=== PATIENT | female | born 1995 | race Caucasian/White ===

== ENCOUNTER 2017-12-28 16:07 | Emergency (ER) | payer OTHER, SELFPAY ==
[2017-12-28 16:09] VITALS: BP 100/67; PULSE 134; RESP 16; TEMP 37.1; O2SAT 97; BMI 38.6
--- NOTE | 2017-12-28 16:31 | ED.VISSUMM ---
- ER Visit Summary Date of Service: 12/28/17 Chief Complaint: Sore throat, cough History of Present Illness: The patient is a 22 F patient has sore throat and cough. It started a week ago. Is worse with swallowing. Cough is been productive of a hunt sputum. Patient had a negative strep and negative mono at an urgent care today but was sent in because she was having some abdominal pain. Patient has been doing ibuprofen at home. No fevers. Physical Examination: Vital signs reviewed. HEENT exam reveals posterior oropharyngeal erythema with tonsillar exudates and swelling. Heart is regular rate and rhythm. Lungs are clear. Abdomen soft with very mild diffuse tenderness. No point tenderness. Neurologic exam normal. Test Results: [] Emergency Department Course and Treatment: Even though the patient had a negative strep test I will treat her with penicillin at home. Her abdominal pain is very benign I do not feel that any intra-abdominal pathology is present. She will follow-up with her PCP Treatment Plan: [] Disposition: Discharge Impression: Pharyngitis This note was generated with [employer] dictation software. It may contain incorrect words, spelling, and punctuation that were not noted in review of the chart prior to signing ED Disposition - Plan for ED Patient: Chief Complaint: Sore Throat Referrals: Khris De Leon MD [Primary Care Provider] -
--- NOTE | 2017-12-28 16:33 | ED.DEP ---
ED Disposition - Plan for ED Patient: Disposition: Home or Assisted Living Chief Complaint: Sore Throat Instructions: ED Strep Pharyngitis Conf Prescriptions: Penicillin V Potassium 500 mg PO BID #20 tab Referrals: Khris De Leon MD [Primary Care Provider] -
[2017-12-28] MEDS: Penicillin Vk 250 MG Tablet 500 MG PO (16:45)
== END 2017-12-28 16:53 | disposition home or self-care (01) ==
LOC: ED 16:49
PROVIDERS: Emergency Provider Emergency Medicine; Family Provider Family Medicine; PCP Family Medicine
DX: J02.9 Acute pharyngitis, unspecified (principal); R05 Cough; R10.9 Unspecified abdominal pain; F32.9 Major depressive disorder, single episode, unspecified; Z79.899 Other long term (current) drug therapy
CPT/HCPCS: 99283

== ENCOUNTER → 2018-02-12 15:39 | Outpatient (CLI) | payer OTHER, SELFPAY ==
--- NOTE | 2018-02-12 | TONS_PTH ---
PATIENT: ALIZA BRASWELL LOC: [facility] U#:[id number] AGE/SX: 30/F ROOM: RE02/12/[address]: Dr. Jimi Garber MD : 1995 BED: DIS: SPEC #: [id number] RECD: 02/12/18 15:22 STATUS: VANCE REKaro #: [id number] KANDI: 02/12/18 00:[address]: Jimi Garber DEPT: SURGICAL PATHOLOGY RECD BY: Juan Manuel Lester ENTERED: 02/13/18 13:22 SP TYPE: TONSILS OTHR DR: MD Enrique Baron MD [facility] Tissues: Tonsil, NOS Procedures: Surgery Specimen Level III HEADER OPERATION: Tonsillectomy PRE-OP DIAGNOSIS: Chronic tonsillitis, otalgia, bilateral TISSUE SUBMITTED: Tonsils, right pinned MICROSCOPIC DIAGNOSIS Bilateral tonsils: Reactive lymphoid hyperplasia, consistent with chronic tonsillitis. Focal actinomyces colonization. KEREN:faisal 02/14/18 MICROSCOPIC DESCRIPTION Slides are reviewed. GROSS DESCRIPTION Received is one container labeled with the patient's name and designated tonsils - pin on right are two tonsils that in aggregate weigh 15.2 gm. The right tonsil has a pin on it and measures 3.5 x 3 x 2.5 cm. The left tonsil measures 3 x 2 x 2 cm. Both tonsils are similar in appearance. The external surfaces are pink-hunt, smooth, glistening and somewhat lobulated. Focally they are hemorrhagic, granular and bear cautery artifact. Serial cross sections through the tonsils reveal normal tonsillar architecture. Sections are submitted in two cassettes as follows: 1 - right tonsil, 2 - left tonsil. / KEREN:faisal 02/13/18 TC:3 CPT: 19037 x2
== END ==
PROVIDERS: Family Provider Family Medicine; PCP Family Medicine; Referring Provider Otolaryngology Otolaryngology/Facial Plastic Surgery; Visit Provider Otolaryngology Otolaryngology/Facial Plastic Surgery
DX: J35.01 Chronic tonsillitis (principal); H92.03 Otalgia, bilateral
CPT/HCPCS: 88304

== ENCOUNTER → 2018-09-11 14:24 | Outpatient (CLI) | payer OTHER, SELFPAY ==
--- NOTE | 2018-09-11 15:34 | NEURO ---
NCS and/or EMG Patient Report Ordering Doctor: Stanford Baker DATE OF SERVICE: 09/11/18 Bell Cline is a 23 year old female who presents for electrodiagnostic testing of the upper limbs. She has pain in the wrists and numbness in the fourth and fifth digits of both hands. She also complains of recent shoulder pain. She has a history of left carpal tunnel repair in 2015 and right carpal tunnel repair in 2017. Electrodiagnostic findings median motor nerve demonstrates normal distal latency, amplitude and conduction velocity bilaterally. Ulnar motor response is within normal limits bilaterally, including conduction across the elbow. Normal median and ulnar F-wave bilaterally. Sensory responses are within normal limits. On needle EMG, all muscles tested in the upper limbs showed no evidence of denervation with normal motor unit action potentials. Electrodiagnostic impression: This is a normal electrodiagnostic study of the upper limbs. There is no electrodiagnostic evidence for ulnar neuropathy, including cubital tunnel syndrome. There is no evidence for recurrent carpal tunnel syndrome. There is additionally no evidence for cervical radiculopathy or brachial plexopathy. If there are any further questions, please do not hesitate to contact me.
== END ==
LOC: PSN 14:25
PROVIDERS: Family Provider Family Medicine; PCP Family Medicine; Referring Provider Orthopaedic Surgery; Visit Provider Orthopaedic Surgery
DX: G56.23 Lesion of ulnar nerve, bilateral upper limbs (principal)
CPT/HCPCS: 95886; 95913

== ENCOUNTER 2018-10-15 08:46 | Outpatient (RCR) | payer OTHER, SELFPAY ==
--- NOTE | 2018-10-15 10:46 | HP.OTEVAL_ITS ---
Patient's Visit Information BELL BRASWELL is a 23 year old F, referred to Occupational Therapy by Stanford Baker MD, with a diagnosis of bilateral hand pain. Date of Evaluation: 10/15/18 Occupational Therapist: Bell Jaime, JUAN CARLOS/Debora, CHT - Subjective Subjective: This 23 year old female was seen for OT eval with dx of bilateral hand pain. 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 - ADLs Fasteners: Snaps Kitchen: Chop with knife, Peel fruits & vegetables, Open jars, Open bottle caps Household: Sweep/mop Miscellaneous: Use cell phone - Pain bilateral hands 4 - ROM ROM Comments: pt demo all ROM WNL - Strength Powerhouse Mechanic Supervisor: right 55# left 70# Lateral Pinch: right 14# left 20# Tripod Pinch: right 12# left 20# Strength Comments: pt demo with a decrease in right recreation assistant strength. pt right handed - Quick DASH-Disab of Arm,Shoulder& Hand Quick DASH Score: 28.3325 - Carpal Tunnel Syndrome Total Score of Symptom & Functional Sections: 31 - Goals Goal:: pt will demo a increase in right recreation assistant strength by 20# to increase ind with ADLs and IADLS by d/c. Goal:: pt will report pain no greater than 2/10 with use of bilateral hands for 8 hour work day by d/c Goal:: pt will demo understanding of work,computer, phone ergo by end of 1st session - Rehabilitation General Assessment: Pt demo with ROM WNL and strength good- noted a decrease in right recreation assistant and pinch strength, pt also in need of ed.on work ergo, computer and phone ergro. pt would benefit from skilled OT services 2-3 visits. Today pt ed. pt on TOS, median nerve glide as well as computer, phone and work ergonomics. Pt also given information on home trigger point release reagan for bilateral forearms and hands. pt was given handout and demo understanding of HEP. Pt to call/schedule with questions or no decrease in symptoms. Rehabilitation Potential: Good - Anticipated Interventions Anticipated Interventions: Triggerpoint Release, Joint Protection/Energy Conservation, Ergonomic Education, Education re assistive Equipment, Education re Diagnosis, Home Program - Visit Plan TEXT: Thank you for the opportunity to evaluate your patient. For Medicare and Medicare HMO plans, please review the plan of care and approve it. It will need to be FAXED BACK to us at [phone] for Medicare purposes. Please let me know if there are questions or concerns regarding this plan of care. Physician Signature: Date:
--- NOTE | 2019-03-12 18:51 | HP.OTDCSUM ---
HP - OT D/C Summary It has been my pleasure to treat BELL BRASWELL under orders from Stanford Baker MD, for the diagnosis of bilateral hand pain for a total of 1 visit(s). Please see the following information for a summary of their discharge status. 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 Goal:: pt will report pain no greater than 2/10 with use of bilateral hands for 8 hour work day by d/c Goal:: pt will demo understanding of work,computer, phone ergo by end of 1st session - D/C Information Discharge Comments: pt did not schedule further apts. Due to time lapse in services therapy d/c pt. n If there are questions or concerns regarding this patient's occupational therapy, please fell free to call me at [phone]. Thank you for the referral of this patient. Sincerely, Bell Jaime, OTR/L, CHT
== END 2018-10-15 19:00 | disposition home or self-care (01) ==
LOC: OT 08:46
PROVIDERS: Family Provider Family Medicine; PCP Family Medicine; Referring Provider Orthopaedic Surgery; Visit Provider Orthopaedic Surgery
DX: M79.641 Pain in right hand (principal); M79.642 Pain in left hand
CPT/HCPCS: 97166

== ENCOUNTER → 2020-08-03 09:54 | Outpatient (CLI) | payer OTHER, SELFPAY ==
--- NOTE | 2020-08-03 10:09 | RAD_ITS ---
STUDY: X-RAY - CERVICAL SPINE REASON FOR EXAM: Female, 25 years old. MIGRAINES TECHNIQUE: 7 view(s) of the cervical spine were obtained. COMPARISON: None FINDINGS: Normal anterior atlantoaxial articulation. Normal odontoid process. Normal cervical lordosis. Normal vertebral bodies and endplates. Normal disc space heights. Normal visualized intervertebral neuroforamina. No instability on flexion or extension views The soft tissue structures are unremarkable. RAD/Cerv Spine Obl/Flex/Ext Comp IMPRESSION: Normal x-ray examination of the visualized cervical spine. Electronically Signed: Marvin Allen MD at 10:49 EDT , Service support ,
[2020-08-03 12:22] LABS: Erythrocyte Sedimentation Rate 21 mm/hr (0-30)
[2020-08-03 12:38] LABS: Vitamin B12 243 pg/mL (211-911); Vitamin D,25 Hydroxy 9.8 ng/mL
[2020-08-03 12:55] LABS: Anion Gap 9 (5-15); BUN 11 mg/dL (7-18); BUN/Creat Ratio 14.5 RATIO (10-20); Calcium,Total 8.4 mg/dL (8.5-10.1); Chloride 109 mmol/L (98-107); Cholesterol 235 mg/dL (200); Creatinine, Serum 0.76 mg/dL (0.55-1.02); EST Glomerular Filtration Rate 99 mL/min (>60); Est Glom Filt Rate - Afr Amer 119 mL/min (>60); Free T3 2.4 pg/mL (2.18-3.98); Glucose 87 mg/dL (74-106); High Density Lipoprotein 84 mg/dL; Iron 39 ug/dL (50-170); Potassium 4.2 mmol/L (3.5-5.1); Sodium Level 138 mmol/L (136-145); T4 Free Direct 0.91 ng/dL (0.76-1.46); Thyroid Stim Hormone (TSH) 2.07 uIU/mL (0.358-3.74); Triglycerides 96 mg/dL; Very Low Density Lipoprotein 19 mg/dL (5-40)
== END ==
PROVIDERS: PCP Family Medicine; Referring Provider Family Medicine; Visit Provider Family Medicine
DX: E03.9 Hypothyroidism, unspecified (principal); R53.83 Other fatigue; R51.9 Headache, unspecified; Z13.220 Encounter for screening for lipoid disorders; Z13.1 Encounter for screening for diabetes mellitus
CPT/HCPCS: 36415; 72052; 80048; 80061; 82306; 82607; 83540; 84439; 84443; 84481; 85652

== ENCOUNTER → 2020-12-15 11:50 | Outpatient (CLI) | payer SELFPAY ==
[2020-12-15 14:51] LABS: Absolute Lymphocyte Count 2.83 X10^3/uL (0.83-4.51); Basophil# 0.04 X10^3/uL; Basophil% 0.4 % (0-1); Eosinophil# 0.08 X10^3/uL; Eosinophils% 0.7 % (0-5); Hematocrit 39.9 % (37-47); Hemoglobin 12.8 g/dL (12.0-15.0); Lymphocyte # 2.83 X10^3/ul (0.83-4.51); Lymphocyte % 26.3 % (19-41); Mean Corp Hgb Conc 32.1 g/dL (32-36); Mean Corpuscular Hgb 28.5 pg (27.0-32.0); Mean Corpuscular Volume 88.9 fL (81-99); Mean Platelet Vol. 10.9 fl (6.2-12.0); Monocyte# 0.73 X10^3/uL; Monocyte% 6.8 % (0-10); NRBC Flagged by Analyzer 0 % (0-5); Neutrophil # 7.04 X10^3/uL (2.7-7.7); Neutrophil % 65.4 % (47-70); Platelet Count 368 K/mm3 (150-450); RBC Distribution Width CV 13.1 % (11.6-14.6); RBC Distribution Width SD 42.9 fl (35.1-43.9); Red Blood Count 4.49 M/mm3 (4.2-5.4); White Blood Count 10.8 K/mm3 (4.4-11.0)
[2020-12-15 15:15] LABS: T4 Free Direct 0.88 ng/dL (0.76-1.46); Thyroid Stim Hormone (TSH) 1.52 uIU/mL (0.358-3.74)
[2020-12-15 15:28] LABS: Hemoglobin A1c 5.3 % (3.8-5.6)
== END ==
PROVIDERS: PCP Family Medicine; Referring Provider Family Medicine; Visit Provider Family Medicine
DX: E03.9 Hypothyroidism, unspecified (principal); E28.2 Polycystic ovarian syndrome; D72.829 Elevated white blood cell count, unspecified
CPT/HCPCS: 36415; 83036; 84439; 84443; 85025

== ENCOUNTER 2021-04-28 11:21 | Outpatient (CLI) | payer OTHER, SELFPAY ==
[2021-04-28] MEDS: 0.9% Saline Lock 10 ML Syringe IV (13:13)
[2021-04-28 13:14] VITALS: BP 132/80; PULSE 98; RESP 16; TEMP 36.6; O2SAT 98; BMI 42.4
[2021-04-28 13:36] VITALS: BP 119/71; PULSE 81; RESP 16; TEMP 36.9; O2SAT 100
[2021-04-28 14:29] VITALS: BP 115/75; PULSE 67; RESP 16; TEMP 37.2; O2SAT 97
== END 2021-04-28 23:59 | disposition home or self-care (01) ==
LOC: MS3OUT 11:22 → MS3 12:57
PROVIDERS: PCP Family Medicine; Referring Provider Nurse Practitioner Adult Health; Visit Provider Nurse Practitioner Adult Health
DX: Z23 Encounter for immunization (principal); Z68.41 Body mass index [BMI] 40.0-44.9, adult; U07.1 COVID-19; E66.9 Obesity, unspecified
CPT/HCPCS: J7050; M0243; A4216; Q0244

== ENCOUNTER 2021-05-04 14:46 | Outpatient (CLI) | payer OTHER, SELFPAY ==
--- NOTE | 2021-05-04 14:55 | RAD_ITS ---
STUDY: X-RAY - RIGHT ELBOW REASON FOR EXAM: Female, 26 years old. ELBOW PAIN TECHNIQUE: 4 view(s) of the elbow. COMPARISON: None. FINDINGS: Normal visualized humerus, radius and ulna. Normal radiocapitellar and ulnotrochlear articulations. The soft tissue structures are unremarkable. RAD/Elbow min 3 Views IMPRESSION: Normal x-ray examination of the elbow. Electronically Signed: Sebastien Clarke MD at 15:41 EST , Service support ,
== END 2021-05-04 23:59 | disposition short-term general hospital (02) ==
LOC: MTRAD 14:50
PROVIDERS: PCP Family Medicine; Referring Provider Family Medicine; Visit Provider Family Medicine
DX: M25.521 Pain in right elbow (principal)
CPT/HCPCS: 73080

== ENCOUNTER 2021-05-19 10:30 | Outpatient (CLI) | payer OTHER, SELFPAY ==
--- NOTE | 2021-05-19 10:30 | MRI_ITS ---
STUDY: MRI RIGHT ELBOW REASON FOR EXAM: Ulnar sided right elbow pain, decreased structural fitter strength. TECHNIQUE: Standardized fat and water weighted pulse sequences were obtained in all 3 orthogonal planes. COMPARISON: Radiographs 05/04/2021. FINDINGS: Normal radio-capitellum articulation. Normal radial collateral ligamentous complex. Normal common extensor tendon. Normal ulnotrochlear articulation. Normal ulnar collateral ligamentous complex. There is mild tendinosis of the common flexor tendon (inversion recovery coronal image 15; T2 axial image 16) without focal discontinuity of the tendon. The cubital tunnel is normal, with a normal ulnar nerve. Normal biceps tendon and distal insertion. Normal lacertus fibrosis. Normal brachialis musculotendinous insertion. Normal triceps tendon and teno-osseous insertion. Normal olecranon process. The visualized distal humerus, proximal radius, and ulna are normal. The visualized muscles of the distal arm and proximal forearm are normal. The soft tissue structures are unremarkable. MRI/Upper Ext Joint Only(Routine) IMPRESSION: Mild medial epicondylitis with mild tendinosis of the common flexor tendon. Electronically Signed: Fran Ceja MD at 12:14 EST ,
== END 2021-05-19 23:59 | disposition short-term general hospital (02) ==
LOC: MRI 10:30
PROVIDERS: PCP Family Medicine; Visit Provider Family Medicine
DX: M25.521 Pain in right elbow (principal)
CPT/HCPCS: 73221

== ENCOUNTER 2021-06-20 10:58 | Outpatient (CLI) | payer OTHER, SELFPAY ==
[2021-06-20 12:54] LABS: Vitamin B12 592 pg/mL (211-911); Vitamin D,25 Hydroxy 49.1 ng/mL
[2021-06-20 13:03] LABS: Thyroid Stim Hormone (TSH) 1.71 uIU/mL (0.358-3.74)
== END 2021-06-20 23:59 | disposition home or self-care (01) ==
LOC: MFPLAB 10:59
PROVIDERS: PCP Family Medicine; Referring Provider Family Medicine; Visit Provider Family Medicine
DX: E03.9 Hypothyroidism, unspecified (principal); E53.8 Deficiency of other specified B group vitamins; R79.89 Other specified abnormal findings of blood chemistry
CPT/HCPCS: 36415; 82306; 82607; 84443

== ENCOUNTER 2021-07-12 09:00 | Outpatient (RCR) | payer OTHER, SELFPAY ==
--- NOTE | 2021-06-22 14:33 | HP.PTEVAL_ITS ---
Patient's Visit Information ALIZA BRASWELL is a 26 year old F referred to Physical Therapy by Dr. Khris De Leon MD with a diagnosis of RIGHT MEDIAL EPICONDLITIS. Date of Evaluation: 06/22/21 Physical Therapist: Henri Lee PT, Cert MDT, OCS - Visit Plan Frequency: 1x/Week Duration: 4 Weeks Plan: PT INTERVETIONS RADIAL PULSE WAVE THERAPY ,US,ECCCTRICS ,MODIFICATIONS AND STRETCHING - Subjective This 26 y/o female presents to physical therapy with medial epicondylitis right side. Patient has right elbow pain ~ 6months although patient has had wrist pain for ~ [address] did MRI elbow tendonitis ,x-rays -, had cortisone injection helped for ~ 2weeks . Aggravating factors gripping ,repetitive motion ,lifting with right wrist . Alleviating factors ice /heat . Ibuprofrin . Denies paresthesia/tingling occasionally. Sleeping with arm bent. Patient condition affects QOL and function and job demands. Patient has had CTS bilateral hands. VOCATION: [employer]. SOCIAL: - Pain Left Elbow Pain Intensity (Out of 10): 4 Pain Intensity Range: 10 - Objective POSTURE: WFL. NEURO: denies paranesthesia/tingling. PALPATION: tender medial condyle of insertion flexor tendon and. AROM WRIST: flexion/extension 90 degrees ,supination/pronation 90 degrees, elbow 0-140 degrees. MMT: BICEPS /TRICEPS 4/5, wrist flexion/extension 4/5, supination/pronation 4/5. 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: 35# RIGHT ,70# LEFT - Special Tests R Elbow Flexion/Elbow Exension Test Supine - Elbow Fracture: Negative R Elbow Valgus Stress Test - MCL Instability: Negative R Elbow Varus Stress Stest - MCL Instability: Negative R Elbow Lat Epiconylitis - as named: Positive - Balance/Special Test Scores Quick DASH Score: 63.6350 - Goals Goal 1:: Provide HEP for managing elbow pain eccrentics Goal Time Frame: 4-6 Weeks Goal 2:: Patient to demonstrate 60% improvement of with decrease pain to improve function Goal Time Frame: 4-6 Weeks Goal 3:: Patient to improve ability to lift and grasp with right hand 80% of the time. Goal Time Frame: 4-6 Weeks Goal 4:: Patient increase strength of electrical mechanic to 50 # -60# right side to pharmacy picking technician objects Goal Time Frame: 4-6 Weeks Goal 5:: Patient to improve - Rehabilitation Potential Rehabilitation Potential: Good - Anticipated Interventions Patient/Client Instruction: Educate patient on: Condition, Plan of Care For the Purpose of:: To decrease pain, To decrease swelling/inflammation, To increase ROM, To improve nutrient delivery to tissue, To increase oxygenation perfusion, To improve muscle performance and motor function, To increase tolerance to activity/condition/position, To improve ability of physical actions for home/community/work/leisure, To improve health of tissue, To decrease soft tissue restriction, To increase flexibility/ROM, To prevent re-injury Therapeutic Exercise to Include: Strength training, Passive ROM, Active ROM Comment: ECCENTRICS For the Purpose of:: To decrease pain, To increase ROM, To improve muscle performance and motor function, To improve ability to perform ADL's, To increase tolerance to activity/condition/position, To improve ability of physical actions for home/community/work/leisure, To improve health of tissue, To decrease soft tissue restriction, To increase flexibility/ROM, To prevent re-injury Cryotherapy (ice pack, ice massage): Yes Ultrasound (thermal/non thermal): Yes Comment: RADIAL PULSED WAVE THERAPY For the Purpose of:: To decrease pain, To increase ROM, To improve nutrient delivery to tissue, To increase oxygenation perfusion, To improve ability of physical actions for home/community/work/leisure, To improve health of tissue, To decrease soft tissue restriction, To increase flexibility/ROM, To reduce risk of recurrence Thank you for the opportunity to evaluate your patient. For Medicare and Medicare HMO plans, please review the plan of care and approve it. It will need to be FAXED BACK to us at [phone] for Medicare purposes. For Medicare only, by signing this I certify the plan of care. Please let me know if there are questions or concerns regarding this plan of care. Physician Signature: Date:
--- NOTE | 2021-12-28 13:15 | HP.PTDCNRP_ITS ---
ALIZA BRASWELL was seen in my office for initial evaluation on 06/22/21. The following Plan of Care was established for this patient: Initial Frequency: 1x/Week Initial Duration: 4 Weeks Patient/Client Instruction: Educate patient on: Condition, Plan of Care For the Purpose of:: To decrease pain, To decrease swelling/inflammation, To increase ROM, To improve nutrient delivery to tissue, To increase oxygenation perfusion, To improve muscle performance and motor function, To increase tolerance to activity/condition/position, To improve ability of physical actions for home/community/work/leisure, To improve health of tissue, To decrease soft tissue restriction, To increase flexibility/ROM, To prevent re-injury Therapeutic Exercise to Include: Strength training, Passive ROM, Active ROM For the Purpose of:: To decrease pain, To increase ROM, To improve muscle performance and motor function, To improve ability to perform ADL's, To increase tolerance to activity/condition/position, To improve ability of physical actions for home/community/work/leisure, To improve health of tissue, To decrease soft tissue restriction, To increase flexibility/ROM, To prevent re-injury Cryotherapy (ice pack, ice massage): Yes Ultrasound (thermal/non thermal): Yes Comment: RADIAL PULSED WAVE THERAPY For the Purpose of:: To decrease pain, To increase ROM, To improve nutrient delivery to tissue, To increase oxygenation perfusion, To improve ability of physical actions for home/community/work/leisure, To improve health of tissue, T o decrease soft tissue restriction, To increase flexibility/ROM, To reduce risk of recurrence This patient was last seen in our office . Pertinent comments regarding their Physical therapy will appear below: Patient seen for PT for right medial epicondyle tendonitis for HEP patient decline radial pulse therapy At this point I will be discontinuing this patient from physical therapy. I would be happy to see this patient again in the future if found appropriate by the physician. Thank you! Henri Lee, PT, Cert MDT, OCS Balance/Gait/Functional tests - Balance/Special Test Scores Quick DASH Score: 63.6301
== END 2021-07-12 19:00 | disposition home or self-care (01) ==
LOC: PT 09:00
PROVIDERS: PCP Family Medicine; Referring Provider Family Medicine; Visit Provider Family Medicine
DX: M77.01 Medial epicondylitis, right elbow (principal)
CPT/HCPCS: 97035; 97110; 97140; 97162

== ENCOUNTER → 2021-11-21 | Outpatient (CLI) | payer OTHER, SELFPAY | END | disposition home or self-care (01) | LOC: LABSPEC 13:45 | PROVIDERS: PCP Family Medicine; Referring Provider Nurse Practitioner Women's Health; Visit Provider Nurse Practitioner Women's Health | DX: Z12.4 Encounter for screening for malignant neoplasm of cervix (principal) | CPT/HCPCS: 88175; G0145 ==

== ENCOUNTER → 2021-12-06 | Outpatient (CLI) | payer OTHER, SELFPAY ==
--- NOTE | 2021-12-06 12:43 | RAD_ITS ---
INDICATION: unspecified asthma EXAMINATION/TECHNIQUE: X-RAY - XR Chest 2 Views COMPARISON: 03/12/2012. FINDINGS: LINES/DEVICES: None. LUNGS: Peribronchial cuffing that could correlate with history of asthma or airway disease. No consolidation, edema or effusion. No pneumothorax. MEDIASTINUM AND CARDIOVASCULAR STRUCTURES: Cardiac silhouette not enlarged. Central airways and mediastinal contour are unremarkable. BONES AND SOFT TISSUES: Unremarkable. RAD/Chest PA and Lateral IMPRESSION: No radiographic evidence of acute cardiopulmonary disease. Electronically Signed: Shamir Cabello MD at 13:03 EDT ,
== END | disposition home or self-care (01) ==
LOC: MTRAD 12:41
PROVIDERS: PCP Family Medicine; Referring Provider Family Medicine; Visit Provider Family Medicine
DX: J45.909 Unspecified asthma, uncomplicated (principal)
CPT/HCPCS: 71046

== ENCOUNTER → 2022-08-09 | Outpatient (CLI) | payer OTHER, SELFPAY ==
--- NOTE | 2022-08-09 08:30 | RAD_ITS ---
STUDY: X-RAY - ESOPHAGUS (BARIUM SWALLOW) WITH FLUOROSCOPY REASON FOR EXAM: Female, 27 years old. DYSPEPSIA TECHNIQUE: 18 view(s) of the esophagus were obtained following swallowing of barium. FLUOROSCOPY TIME (if supplied): (29 seconds) minutes/seconds. 58.42 mGy COMPARISON: None. FINDINGS: There is no demonstrated esophageal foreign body. There is no demonstrated stricture or mucosal abnormality. Normal gastroesophageal junction, without a demonstrated hiatal hernia. The patient ingested a 12 mm tablet of barium without any difficulty. Normal visualized aortic arch and descending thoracic aorta. Normal visualized pulmonary parenchyma. Normal visualized osseous structures of the thorax. RAD/Esophagus Dual Contrast IMPRESSION: Normal plain film x-ray examination (barium swallow) of the esophagus. Electronically Signed: Sebastien Clarke MD at 10:02 EDT ,
== END | disposition home or self-care (01) ==
LOC: RAD 08:24
PROVIDERS: PCP Family Medicine; Referring Provider Family Medicine; Visit Provider Family Medicine
DX: R10.13 Epigastric pain (principal)
CPT/HCPCS: 74221

== ENCOUNTER → 2022-08-10 | Outpatient (CLI) | payer OTHER, SELFPAY ==
[2022-08-10 15:42] LABS: ALB/GLOB Ratio 1.1 RATIO (0.9-2.4); AST(SGOT) 22 U/L (15-37); Absolute Lymphocyte Count 2.07 X10^3/uL (0.83-4.51); Alanine Aminotransfer ALT/SGPT 31 U/L (13-56); Albumin, Serum 3.7 g/dL (3.2-5.0); Alkaline Phosphatase 70 U/L (45-117); Anion Gap 5 (5-15); BUN 8 mg/dL (7-18); BUN/Creat Ratio 9.9 RATIO (10-20); Basophil# 0.05 X10^3/uL; Basophil% 0.4 % (0-1); Chloride 108 mmol/L (98-107); Creatinine, Serum 0.81 mg/dL (0.55-1.02); EST Glomerular Filtration Rate 90 mL/min (>60); Eosinophil# 0.05 X10^3/uL; Eosinophils% 0.4 % (0-5); Est Glom Filt Rate - Afr Amer 109 mL/min (>60); Globulin 3.4 g/dL (2.2-4.2); Glucose 94 mg/dL (74-106); Hematocrit 39.6 % (37-47); Hemoglobin 12.7 g/dL (12.0-15.0); Lymphocyte # 2.07 X10^3/ul (0.83-4.51); Mean Corp Hgb Conc 32.1 g/dL (32-36); Mean Corpuscular Hgb 27.5 pg (27.0-32.0); Mean Corpuscular Volume 85.7 fL (81-99); Mean Platelet Vol. 10.6 fl (6.2-12.0); Monocyte# 0.67 X10^3/uL; Monocyte% 5.2 % (0-10); NRBC Flagged by Analyzer 0 % (0-5); Neutrophil # 9.95 X10^3/uL (2.7-7.7); Platelet Count 404 K/mm3 (150-450); Protein, Total 7.1 g/dL (6.4-8.2); RBC Distribution Width CV 13.3 % (11.6-14.6); RBC Distribution Width SD 41.6 fl (35.1-43.9); Red Blood Count 4.62 M/mm3 (4.2-5.4); Sodium Level 136 mmol/L (136-145); White Blood Count 12.9 K/mm3 (4.4-11.0)
[2022-08-10 16:06] LABS: Vitamin B12 1736 pg/mL (211-911); Vitamin D,25 Hydroxy 93.5 ng/mL
[2022-08-12 06:08] LABS: H. Pylori Antibody (IgG) 0.14 (0.00-0.79)
== END | disposition home or self-care (01) ==
LOC: MTLAB 13:02
PROVIDERS: PCP Family Medicine; Referring Provider Family Medicine; Visit Provider Family Medicine
DX: R10.13 Epigastric pain (principal); R79.89 Other specified abnormal findings of blood chemistry; E53.8 Deficiency of other specified B group vitamins
CPT/HCPCS: 36415; 80053; 82306; 82607; 85025; 86677

== ENCOUNTER → 2022-08-16 | Outpatient (CLI) | payer OTHER, SELFPAY ==
[2022-08-16 10:36] LABS: Absolute Lymphocyte Count 2.54 X10^3/uL (0.83-4.51); Absolute Neutrophil Count 5.3 X10^3/uL (2.0-7.7); Basophil# 0.04 X10^3/uL; Basophil% 0.5 % (0-1); Eosinophil# 0.08 X10^3/uL; Eosinophils% 0.9 % (0-5); Hematocrit 39.9 % (37-47); Hemoglobin 12.3 g/dL (12.0-15.0); Lymphocyte # 2.54 X10^3/ul (0.83-4.51); Lymphocyte % 29.3 % (19-41); Mean Corp Hgb Conc 30.8 g/dL (32-36); Mean Corpuscular Hgb 26.9 pg (27.0-32.0); Mean Corpuscular Volume 87.3 fL (81-99); Mean Platelet Vol. 10.4 fl (6.2-12.0); Monocyte# 0.65 X10^3/uL; Monocyte% 7.5 % (0-10); NRBC Flagged by Analyzer 0 % (0-5); Neutrophil # 5.32 X10^3/uL (2.7-7.7); Neutrophil % 61.2 % (47-70); Platelet Count 338 K/mm3 (150-450); RBC Distribution Width CV 13.4 % (11.6-14.6); RBC Distribution Width SD 42.6 fl (35.1-43.9); Red Blood Count 4.57 M/mm3 (4.2-5.4); White Blood Count 8.7 K/mm3 (4.4-11.0)
--- NOTE | 2022-08-16 10:41 | US_ITS ---
STUDY: ABDOMINAL ULTRASOUND - RIGHT UPPER QUADRANT REASON FOR VISIT: Female, 27 years old ABD PAIN TECHNIQUE: Ultrasound evaluation of the right upper quadrant was performed with real-time and static joseph-scale imaging. TECHNICAL QUALITY: Adequate. COMPARISON: None. FINDINGS: Liver: The liver measures 16.7 cm. There is increased echogenicity consistent with fatty infiltration. The bile ducts are within normal limits. There is hepatic color flow. The direction of portal flow is hepatopetal. There is no demonstrated mass lesion. Gallbladder: Normal distended gallbladder. The gallbladder wall measures 1.4 mm. There is a negative sonographic Soto''s sign. There is no pericholecystic fluid. There are no gallstones. Common Bile Duct (C.B.D.): The common bile duct measures 3.1 mm. Pancreas: Normal size of the head, body and tail of the pancreas. There is normal echogenicity of the pancreas. There is no demonstrated pancreatic mass or cyst. Right Kidney: Normal size of the right kidney. The right kidney measures 5 cm x 5 cm x 3.9 cm. Normal renal cortex. The right cortex measures 1.1 cm. There is no demonstrated renal mass or cyst. There is no right hydronephrosis. US/Abdomen Limited IMPRESSION: Fatty infiltration of the liver. Electronically Signed: Sebastien Clarke MD at 12:30 EDT ,
[2022-08-16 12:23] LABS: ALB/GLOB Ratio 1.4 RATIO (0.9-2.4); AST(SGOT) 27 U/L (15-37); Alanine Aminotransfer ALT/SGPT 33 U/L (13-56); Albumin, Serum 3.6 g/dL (3.2-5.0); Alkaline Phosphatase 63 U/L (45-117); Amylase 21 U/L (25-115); Anion Gap 4 (5-15); BUN 6 mg/dL (7-18); BUN/Creat Ratio 6.4 RATIO (10-20); Calcium,Total 8.9 mg/dL (8.5-10.1); Chloride 108 mmol/L (98-107); Creatinine, Serum 0.94 mg/dL (0.55-1.02); EST Glomerular Filtration Rate 76 mL/min (>60); Est Glom Filt Rate - Afr Amer 92 mL/min (>60); Globulin 2.5 g/dL (2.2-4.2); Glucose 97 mg/dL (74-106); Lipase 33 U/L (13-75); Protein, Total 6.1 g/dL (6.4-8.2); Sodium Level 139 mmol/L (136-145)
== END | disposition home or self-care (01) ==
LOC: US 10:41
PROVIDERS: PCP Family Medicine; Referring Provider Family Medicine; Visit Provider Family Medicine
DX: R10.9 Unspecified abdominal pain (principal); R11.2 Nausea with vomiting, unspecified
CPT/HCPCS: 36415; 76705; 80053; 82150; 83690; 85025

== ENCOUNTER → 2022-09-13 | Outpatient (CLI) | payer OTHER, SELFPAY ==
--- NOTE | 2022-09-13 10:02 | NM_ITS ---
CLINICAL: 27-year-old female with history of chronic nausea, emesis. RADIONUCLIDE HEPATOBILIARY SCINTIGRAPHY COMPARISON: Abdominal ultrasound report 08/16/2022 FINDINGS: Following the intravenous administration of 5.2 mCi of 99m Tc Mebrofenin, hepatobiliary images reveal: 1. Relatively prompt and homogeneous radiopharmaceutical concentration is noted by a normal sized liver. No parenchymal defects are identified. 2. Gallbladder activity is identified at 10 minutes post radiopharmaceutical administration. 3. Small intestinal tract is observed at 16 minutes following tracer injection. 4. Washout of the radiopharmaceutical by the hepatic parenchyma appears qualitatively normal. NM/Hepatobilliary Imaging IMPRESSION: 1. NORMAL 99m Tc Mebrofenin hepatobiliary imaging examination. A. Visualization of the gallbladder within 60 minutes post radiopharmaceutical administration excludes acute cholecystitis with 97% certitude. (Edgard et al, Nucl Med Liliya Joann Press pg. 35, 1980). B. Further evaluation of this individual may be undertaken utilizing CCK augmented hepatobiliary scintigraphy if clinically indicated. (Sonali Demarco et al, J Nucl Med 32: 1695, 1990). Electronically Signed: Rafiq Rubio, at 23:12 EDT ,
== END | disposition home or self-care (01) ==
LOC: NM 10:00
PROVIDERS: PCP Family Medicine; Referring Provider Family Medicine; Visit Provider Family Medicine
DX: R10.9 Unspecified abdominal pain (principal)
CPT/HCPCS: 78226; A9537

== ENCOUNTER → 2022-09-27 | Outpatient (CLI) | payer OTHER, SELFPAY ==
[2022-10-04 15:08] LABS: Pancreatic Elastase, Fecal 482 (>200)
== END | disposition home or self-care (01) ==
LOC: MTLAB 13:31 → LABSPEC 13:32
PROVIDERS: PCP Family Medicine; Referring Provider Family Medicine; Visit Provider Family Medicine
DX: R19.7 Diarrhea, unspecified (principal)
CPT/HCPCS: 82271; 82274; 82653; 83630; 87493; 87506

== ENCOUNTER → 2022-10-09 | Outpatient (CLI) | payer OTHER, SELFPAY ==
[2022-10-09 18:30] LABS: CRP 7.94 mg/L (0.0-3.0)
[2022-10-11 15:08] LABS: Endomysial Antibody IgA Negative (Negative); Immunoglobulin A 61 mg/dL (87-352); t-Transglutaminase IgA <2 U/mL (0-3)
== END | disposition home or self-care (01) ==
LOC: MTLAB 15:27
PROVIDERS: PCP Family Medicine; Referring Provider Internal Medicine Gastroenterology; Visit Provider Internal Medicine Gastroenterology
DX: R10.9 Unspecified abdominal pain (principal); R19.7 Diarrhea, unspecified
CPT/HCPCS: 36415; 82784; 83516; 86140; 86255

== ENCOUNTER → 2022-10-17 | Outpatient (CLI) | payer OTHER, SELFPAY ==
[2022-10-18 15:08] LABS: Immunoglobulin A 60 mg/dL (87-352)
== END | disposition home or self-care (01) ==
LOC: MTLAB 08:09
PROVIDERS: PCP Family Medicine; Referring Provider Internal Medicine Gastroenterology; Visit Provider Internal Medicine Gastroenterology
DX: K58.0 Irritable bowel syndrome with diarrhea (principal)
CPT/HCPCS: 36415; 82784; 83516

== ENCOUNTER → 2023-01-10 | Outpatient (CLI) | payer OTHER, SELFPAY ==
[2023-01-10 13:22] LABS: Absolute Lymphocyte Count 2.66 X10^3/uL (0.83-4.51); Absolute Neutrophil Count 7.6 X10^3/uL (2.0-7.7); Basophil# 0.05 X10^3/uL; Basophil% 0.4 % (0-1); Eosinophil# 0.12 X10^3/uL; Eosinophils% 1.1 % (0-5); Hematocrit 37.3 % (37-47); Lymphocyte # 2.66 X10^3/ul (0.83-4.51); Lymphocyte % 23.9 % (19-41); Mean Corp Hgb Conc 32.2 g/dL (32-36); Mean Corpuscular Hgb 28.1 pg (27.0-32.0); Mean Corpuscular Volume 87.4 fL (81-99); Mean Platelet Vol. 9.8 fl (6.2-12.0); Monocyte# 0.55 X10^3/uL; Monocyte% 4.9 % (0-10); NRBC Flagged by Analyzer 0 % (0-5); Neutrophil # 7.64 X10^3/uL (2.7-7.7); Neutrophil % 68.7 % (47-70); Platelet Count 385 K/mm3 (150-450); RBC Distribution Width CV 13.1 % (11.6-14.6); RBC Distribution Width SD 41.9 fl (35.1-43.9); Red Blood Count 4.27 M/mm3 (4.2-5.4); White Blood Count 11.1 K/mm3 (4.4-11.0)
[2023-01-10 13:49] LABS: Vitamin B12 634 pg/mL (211-911)
[2023-01-10 13:55] LABS: Iron 40 ug/dL (50-170); T4 Free Direct 0.75 ng/dL (0.76-1.46); Thyroid Stim Hormone (TSH) 2.77 uIU/mL (0.358-3.74)
[2023-01-12 05:08] LABS: Thyroid Peroxidase AB 15 IU/mL (0-34)
[2023-01-15 11:51] LABS: Free T3 2.4 pg/mL (2.18-3.98)
== END | disposition home or self-care (01) ==
LOC: LAB 12:26
PROVIDERS: PCP Family Medicine; Referring Provider Obstetrics & Gynecology; Visit Provider Obstetrics & Gynecology
DX: E03.9 Hypothyroidism, unspecified (principal); E53.8 Deficiency of other specified B group vitamins; R79.89 Other specified abnormal findings of blood chemistry; N93.9 Abnormal uterine and vaginal bleeding, unspecified; N94.6 Dysmenorrhea, unspecified
CPT/HCPCS: 36415; 82306; 82607; 83540; 84439; 84443; 84481; 85025; 86376

== ENCOUNTER → 2023-02-27 | Outpatient (CLI) | payer OTHER, SELFPAY ==
--- NOTE | 2023-02-27 11:31 | US_ITS ---
STUDY: ULTRASOUND OF THE FEMALE PELVIS - COMPLETE REASON FOR EXAM: Female, 28 years old. Painful, frequent periods LMP: February 04, 2023. TECHNIQUE: Transabdominal and Transvaginal TECHNICAL QUALITY: Adequate. COMPARISON: None. FINDINGS: The uterus is anteverted and is in a midline position. The uterus measures 9.3 cm x 5.5 cm x 4.6 cm. Normal uterine cervix. The endometrium measures 4 mm in thickness, and is hyperechoic. There is no demonstrated endometrial mass. There is no demonstrated myometrial mass. I.U.D. - The patient does not have an I.U.D. The right ovary is visualized. The right ovary measures 2.9 cm x 1.9 cm x 1.8 cm. There is no right ovarian cyst or ovarian mass. There is no visualized right adnexal mass or complex lesion. There is normal arterial and normal venous vascularity. The left ovary is visualized. The left ovary measures 1.9 cm x 3.6 cm x 2.7 cm. There is no left ovarian cyst or ovarian mass. There is no visualized left adnexal mass or complex lesion. There is normal arterial and normal venous vascularity. There is no fluid in the cul-de-sac. The pre void volume of the bladder was 34.5 ml. US/Pelvic (Non ) IMPRESSION: Normal female pelvis. Electronically Signed: Sebastien Clarke MD at 14:20 EST ,
== END | disposition home or self-care (01) ==
LOC: US 11:22
PROVIDERS: PCP Family Medicine; Referring Provider Obstetrics & Gynecology; Visit Provider Obstetrics & Gynecology
DX: N93.9 Abnormal uterine and vaginal bleeding, unspecified (principal); N94.6 Dysmenorrhea, unspecified
CPT/HCPCS: 76830; 76856

== ENCOUNTER → 2023-07-13 | Outpatient (CLI) | payer OTHER, SELFPAY ==
--- NOTE | 2023-07-13 12:35 | RAD_ITS ---
INDICATION: ABDOMINAL PAIN EXAMINATION/TECHNIQUE: X-RAY - XR Abdomen W/ Decub and/or Erect Views COMPARISON: No relevant prior comparison study available FINDINGS: BOWEL GAS PATTERN: Non-obstructive. No bowel or stomach distention. FREE AIR: Not assessed on a single supine view. ORGANOMEGALY: Not seen. CALCIFICATIONS: No abnormal calcifications observed. LOWER CHEST: No acute pathology. BONES AND SOFT TISSUES: No acute changes. IUD in the pelvic region. RAD/Abd Inc Decub and/or Erect IMPRESSION: Non-obstructive bowel gas pattern. Electronically Signed: Malik Cummins MD at 13:34 EDT ,
--- NOTE | 2023-07-13 12:35 | RAD_ITS ---
STUDY: X-RAY CHEST REASON FOR EXAM: Female, 28 years old. CHEST PAIN TECHNIQUE: PA and lateral views of the chest. COMPARISON: Comparison is made with prior study dated December 06, 2021. FINDINGS: The lungs are clear and expanded. There is no demonstrated pleural abnormality. Normal size heart. Normal mediastinum and pedro. Normal visualized pulmonary arteries. Normal visualized aortic arch and descending thoracic aorta. Normal visualized thoracic spine. Normal visualized ribs, clavicles, and shoulders. There is no demonstrated abnormality of the visualized soft tissue structures of the upper abdomen. RAD/Chest PA and Lateral IMPRESSION: Normal x-ray examination of the chest. Electronically Signed: Sebastien Clarke MD at 15:26 EDT ,
[2023-07-13 15:51] LABS: Absolute Lymphocyte Count 2.65 X10^3/uL (0.83-4.51); Absolute Neutrophil Count 9.7 X10^3/uL (2.0-7.7); Basophil# 0.07 X10^3/uL; Basophil% 0.5 % (0-1); Eosinophil# 0.13 X10^3/uL; Hematocrit 39.5 % (37-47); Lymphocyte # 2.65 X10^3/ul (0.83-4.51); Lymphocyte % 19.9 % (19-41); Mean Corp Hgb Conc 30.4 g/dL (32-36); Mean Corpuscular Hgb 25.2 pg (27.0-32.0); Mean Corpuscular Volume 82.8 fL (81-99); Mean Platelet Vol. 10.6 fl (6.2-12.0); Monocyte# 0.72 X10^3/uL; Monocyte% 5.4 % (0-10); NRBC Flagged by Analyzer 0 % (0-5); Neutrophil # 9.67 X10^3/uL (2.7-7.7); Neutrophil % 72.5 % (47-70); Platelet Count 420 K/mm3 (150-450); RBC Distribution Width CV 14.1 % (11.6-14.6); RBC Distribution Width SD 42.4 fl (35.1-43.9); Red Blood Count 4.77 M/mm3 (4.2-5.4); White Blood Count 13.3 K/mm3 (4.4-11.0)
[2023-07-13 16:20] LABS: ALB/GLOB Ratio 1.1 RATIO (0.9-2.4); AST(SGOT) 23 U/L (15-37); Alanine Aminotransfer ALT/SGPT 30 U/L (13-56); Albumin, Serum 3.5 g/dL (3.2-5.0); Alkaline Phosphatase 54 U/L (45-117); Anion Gap 6 (5-15); BUN 17 mg/dL (7-18); BUN/Creat Ratio 21.2 RATIO (10-20); Calcium,Total 8.9 mg/dL (8.5-10.1); Chloride 108 mmol/L (98-107); EST Glomerular Filtration Rate 90 mL/min (>60); Est Glom Filt Rate - Afr Amer 109 mL/min (>60); Globulin 3.3 g/dL (2.2-4.2); Glucose 104 mg/dL (74-106); Potassium 3.8 mmol/L (3.5-5.1); Protein, Total 6.8 g/dL (6.4-8.2); Sodium Level 138 mmol/L (136-145)
== END | disposition home or self-care (01) ==
PROVIDERS: PCP Family Medicine; Referring Provider Family Medicine; Visit Provider Family Medicine
DX: R10.9 Unspecified abdominal pain (principal); R07.81 Pleurodynia
CPT/HCPCS: 36415; 71046; 74019; 80053; 85025

== ENCOUNTER → 2023-07-25 | Outpatient (CLI) | payer OTHER, SELFPAY ==
[2023-07-25 18:03] LABS: Erythrocyte Sedimentation Rate 21 mm/hr (0-30)
[2023-07-25 18:52] LABS: Amylase 32 U/L (25-115); Lipase 33 U/L (13-75)
== END | disposition home or self-care (01) ==
PROVIDERS: PCP Family Medicine; Visit Provider Family Medicine
DX: R10.9 Unspecified abdominal pain (principal)
CPT/HCPCS: 36415; 82150; 83690; 85652; 86140

== ENCOUNTER → 2023-11-02 | Outpatient (CLI) | payer OTHER, SELFPAY ==
--- NOTE | 2023-11-02 16:51 | US_ITS ---
STUDY: ULTRASOUND OF THE FEMALE PELVIS - COMPLETE REASON FOR EXAM: Female, 28 years old. IUD Placement TECHNIQUE: Transvaginal and transabdominal imaging. COMPARISON: 02/27/2023. FINDINGS: The uterus is anteflexed and is in a midline position. The uterus measures 8.5 cm. There is a Nabothian cyst of the cervix. The endometrium measures 3 mm in thickness, and is hyperechoic. There is no demonstrated endometrial mass. There is no demonstrated myometrial mass. I.U.D. - The patient does have an I.U.D. It is low lying. The right ovary is visualized. The right ovary measures 3.2 cm. Ovaries cyst measures 16mm. There is no visualized right adnexal mass or complex lesion. There is normal arterial and normal venous vascularity. The left ovary is visualized. The left ovary measures 3.5 cm. There is no left ovarian cyst or ovarian mass. There is no visualized left adnexal mass or complex lesion. There is normal arterial and normal venous vascularity. There is no fluid in the cul-de-sac. Unremarkable urinary bladder. US/Pelvic w/ Transvaginal IMPRESSION: Patient has an IUD. It is low lying. Nabothian cysts of the cervix. 16 mm simple right ovarian cyst. Electronically Signed: Gabriel Rios MD at 19:59 EDT ,
== END | disposition home or self-care (01) ==
LOC: OPUS 16:48
PROVIDERS: PCP Family Medicine; Referring Provider Nurse Practitioner Women's Health; Visit Provider Nurse Practitioner Women's Health
DX: Z30.9 Encounter for contraceptive management, unspecified (principal); R10.2 Pelvic and perineal pain
CPT/HCPCS: 76830; 76856

== ENCOUNTER 2024-12-26 12:54 | Emergency (ER) | payer OTHER, SELFPAY ==
[2024-12-26 12:55] VITALS: BP 125/91; PULSE 133; RESP 20; TEMP 37; O2SAT 99; BMI 46.3
--- NOTE | 2024-12-26 13:08 | EDS_ITS ---
HPI History of Present Illness Chief Complaint: Chest Pain Informant: patient Onset/Context/Timing Onset: Yesterday Activity at onset: sudden Timing: Continuous Quality: Positive for Heaviness Location: Substernal, Right Parasternal, Left Parasternal, Right Chest and Left Chest Worsened By: Breathing and - (Vomiting, laying on her side) Relieved By: Nothing Associated Symptoms: Positive for Nausea, Vomiting, Dyspnea, Fever, Lightheadedness and Acid Reflux; Negative for Diaphoresis, Cough or Palpitations Narrative Narrative: Patient presents with chest pain that began yesterday. Patient states it began rather suddenly. Patient states it was there when she woke up from a nap. Patient states it has been constant since yesterday. Patient states it feels like a heaviness. Patient states it is diffuse across her entire chest. Patient also admits to some nausea and vomiting for the past few days. Patient states she has some pain over the epigastric area. Patient admits to low-grade fever of 100.5 at home. Patient also admits to some lightheadedness and shortness of breath. Patient denies any hematemesis or coffee-ground emesis. Patient denies any melena or hematochezia. CVD Risk Factors: Positive for Family History 1' </=55; Negative for Hypertension, Diabetes, Hypercholesterolemia or Smoking PE Risk Factors: Negative for Recent Travel/Surgery, Recent Immobilization, Prior DVT or PE, Cancer or OCP + Smoking + >/=35 [facility]SH [facility] Medical History Endometriosis Binge eating disorder MDD (major depressive disorder) Vomiting IBS (irritable bowel syndrome) Dyspepsia COVID-19 PCOS (polycystic ovarian syndrome) OCD (obsessive compulsive disorder) PTSD (post-traumatic stress disorder) Anxiety Depression PCOS (polycystic ovarian syndrome) Hypothyroidism Asthma Home Medications ?Medication ?Instructions ?Recorded ?Last Taken ?Type albuterol 90 mcg/actuation aerosol 90 mcg inhalation Q 4H PRN 08/24/20 12/25/24 History inhaler Shortness Of Breath montelukast 10 mg tablet 10 mg PO DAILY 08/24/2008/15 History (Singulair) cholecalciferol (vitamin D3) 1,250 1,250 mcg PO QWEEK 11/21/21 12/25/24 History mcg (50,000 unit) capsule omeprazole 40 mg capsule,delayed 40 mg PO BID 08/14/22 12/25/24 History release cetirizine 10 mg tablet (Zyrtec) 10 mg PO DAILY PRN al danny 06/05/23 Unknown History multivitamin 1 tab PO DAILY 06/05/2308/15 History elagolix 200 mg tablet (Orilissa) 200 mg PO BID #60 ta bs 04/01/24 12/25/24 Rx bupropion HCl 300 mg 24 hr tablet, 300 mg PO QAM #90 t abs 11/13/24 12/25/24 Rx extended release sertraline 50 mg tablet (Zoloft) 50 mg PO DAILY #90 ta bs 11/13/24 12/25/24 Rx topiramate 50 mg tablet 50 mg PO QHS #90 tabs 12/25/24 Rx sucralfate 1 gram tablet (Carafate) 1 g PO BID #20 tab s 12/26/24 Unknown Rx Allergy/AdvReac Type Severity Reaction Status Date / Time No Known Allergies Allergy Verified 12/26/24 13:20 Family History Mother Diabetes Heart disease Asthma H/O blood clots Surgical History History of tonsillectomy and adenoidectomy History of oral surgery History of carpal tunnel surgery Social History household members: friend(s) number of children: 0 current occupational status: employed current occupation: [employer] history of recent travel: No sexually active: No Smoking Status: Never smoker alcohol intake: current alcohol intake frequency: holidays/special occasions only substance use type: does not use diet: gluten free and lactose free what type of physical activity do you participate in: none seatbelt use: always do you feel safe at home: Yes additional social history: single ROS ROS ED Constitutional Constitutional ED: Reports fever(s); Denies chills Eyes Eyes: Denies blurry vision or change in vision ENT ENT ED: Denies rhinorrhea or sore throat Cardiovascular Cardiovascular: Reports chest pain; Denies palpitations Respiratory/Chest Respiratory/Chest: Reports dyspnea; Denies cough Gastrointestinal Gastrointestinal: Reports nausea and vomiting Genitourinary Genitourinary ED: Denies dysuria or hematuria Musculoskeletal Musculoskeletal: Reports neck pain; Denies back pain Integumentary Denies abscess or rash Neurologic Neurologic: Reports headache(s); Denies weakness Allergic/Immunologic Allergic/Immunologic ED: Denies mouth swelling or urticaria EXAM Physical Exam Const Vital Signs: 12/26/24 12:55 12/26/24 13:18 12/26/24 13:18 Temperature 98.6 F Temperature Source Oral Pulse Rate 133 H Respiratory Rate 20 H Respiratory Effort Normal Blood Pressure 125/91 H Blood Pressure Mean 102 Pulse Ox 99 99 Oxygen Delivery Method Room Air Room Air 12/26/24 13:39 12/26/24 13:55 Temperature Temperature Source Pulse Rate 108 H 103 H Respiratory Rate 19 H Respiratory Effort Blood Pressure 125/75 H 115/75 Blood Pressure Mean 88 Pulse Ox 95 Oxygen Delivery Method Room Air Positive well nourished and well developed Constitutional Narrative: BMI is 46.3. General Appearance ED: well developed and NAD HEENT Reports moist mucous membranes Neck supple and no JVD Chest Wall palpation of chest normal Resp normal respiratory effort and clear to auscultation bilaterally Cardio regular rhythm Rate: tachycardic GI soft to palpation and non-distended GI Narrative: There is some tenderness over the epigastric area. There is no rebound or guarding noted. Extremity normal to inspection General Extremety ED: Negative for edema or tenderness General Extremity: Negative for edema Neuro oriented x3, CN's II-XII intact bilaterally and no sensory deficits noted Sensorium / Orientation: awake and alert Motor Exam: strength 5/5 throughout Psych mental status grossly normal Heart Score History: Slightly/Non-Suspicious ECG: Nonspecific Repolarization Age: </= 45 years Risk Factors: 1 or 2 Risk Factors Troponin: </= Normal Limit Score: 2 MDM MDM MDM Narrative Medical decision making narrative: Differential diagnosis includes cardiac dysrhythmia, cardiac ischemia, pneumonia, bronchitis, electrolyte abnormality, pancreatitis, gastroesophageal reflux disease, and musculoskeletal pain. EKG will be obtained to assess for cardiac dysrhythmia and cardiac ischemia. Chest x-ray will be obtained to assess for pneumonia or bronchitis. CBC will be obtained to assess for leukocytosis and anemia. Basic metabolic profile will be obtained to assess for renal function, and electrolyte abnormality. High-sensitivity troponin will be obtained to assess for cardiac ischemia. Lipase will be obtained to assess for pancreatitis. Urinalysis will be obtained to assess for urinary tract infection and hematuria. History & Record Review Additional record(s) reviewed:: Prior outpatient record and Prior labs Lab Data Attestation: I reviewed the patient's lab results. Lab results narrative: CBC was reviewed. There is a mild leukocytosis of 13.0. Hemoglobin was 11.7. The remainder was within normal limits. Basic metabolic profile was reviewed and was within normal limits. High-sensitivity troponin was reviewed and was less than 6. Lipase was reviewed and was normal at 27. Labs: Laboratory Results - last 24 hr 12/26/24 13:24 WBC 13.0 H RBC 5.01 Hgb 11.7 L Hct 38.0 MCV 75.8 L MCH 23.4 L MCHC 30.8 L RDW Std Deviation 44.6 H RDW Coeff of Cherrie 16.6 H Plt Count 379 MPV 9.6 Immature Gran % (Auto) 0.800 Neut % (Auto) 86.7 H Lymph % (Auto) 7.4 L [place] % (Auto) 4.3 Eos % (Auto) 0.5 Baso % (Auto) 0.3 Absolute Neuts (auto) 11.3 H Absolute Lymphs (auto) 0.96 Nucleated RBC % 0 Sodium 137 Potassium 4.0 Chloride 106 Carbon Dioxide 18.3 L Anion Gap 13 BUN 9 Creatinine 0.84 Estim Creat Clear Calc 127.57 Est GFR (MDRD) Non-Af 97 BUN/Creatinine Ratio 10.3 Glucose 113 H Calcium 8.7 Troponin T High Sens < 6 Lipase 27 Radiography Chest X-Ray - ED: 1 View, Read by ED Physician, Read by Radiologist and No Acute Disease Diagnostic Testing: Clinical Impression(s) from Imaging Studies Chest X-Ray 12/26/24 13:25 IMPRESSION: No focal consolidations. Reading Location: [facility] Portable 1 view chest x-ray was obtained. On my independent interpretation, lung reeves are clear. There is normal cardiac silhouette. Bony thorax is normal. There is no acute process noted. Radiologist also interpreted the x- ray and agrees. EKG Initial EKG: Attestation: I personally reviewed and interpreted this EKG as follows: Interpretation: Sinus Tachycardia (105) and Non-Specific ST Changes Comments: EKG was obtained. On my independent interpretation, it showed a sinus tachycardia with a rate of 105. DC interval, QRS interval, and QTc intervals were all normal. [place] was normal. There are nonspecific ST-T wave changes. Prior EKG tracings: not available for review Prior: No Prior Treatment and Re-Evaluation :: Patient was given aspirin. Patient was given sublingual nitroglycerin. Patient had no change in her pain from this. Patient was given IV fluids and Zofran. Patient was advised of her findings. Patient has a HEART score of 2. Patient was advised that this is low risk for acute cardiac event. Patient was advised that this could be gastroesophageal reflux pain. Patient is currently on omeprazole. Patient was given a prescription for Carafate. Patient was instructed to follow-up with her primary care physician in 3 to 5 days. Patient was instructed to return if worse in any way. Patient understood and was agreeable with the plan. All questions were answered. Discharge Plan Triage Chief Complaint: Chest Pain Other Complaint: Nausea/Vomiting/Diarrhea ED Provider: Monster Meenses Dx/Rx/DC Orders Clinical Impression: Chest pain, Gastroparesis, BMI greater than 40 Instructions: ED Chest Pain, Uncertain Cause Prescriptions: New sucralfate [Carafate] 1 gram tablet 1 g PO BID Qty: 20 0RF No Action montelukast [Singulair] 10 mg tablet 10 mg PO DAILY albuterol 90 mcg/actuation aerosol 90 mcg inhalation Q4H PRN (Reason: Shortness Of Breath) cholecalciferol (vitamin D3) 1,250 mcg (50,000 unit) capsule 1,250 mcg PO QWEEK omeprazole 40 mg capsule,delayed release(DR/EC) 40 mg PO BID multivitamin Tablet 1 tab PO DAILY cetirizine [Zyrtec] 10 mg tablet 10 mg PO DAILY PRN (Reason: allergies) bupropion HCl 300 mg tablet extended release 24 hr 300 mg PO QAM Qty: 90 1RF sertraline [Zoloft] 50 mg tablet 50 mg PO DAILY Qty: 90 1RF topiramate 50 mg tablet 50 mg PO QHS Qty: 90 1RF Orilissa 200 mg tablet 200 mg PO BID Qty: 60 12RF Primary Care Provider: Eagle De Leon Referrals: Eagle De Leon MD [Primary Care Provider] - 3-5 Days Print Language: Israeli Disposition Disposition: Home, Self Care
[2024-12-26 13:18] VITALS: O2SAT 99
--- NOTE | 2024-12-26 13:18 | EKG12_ITS ---
Test Reason : CP Blood Pressure : */* mmHG Vent. Rate : 105 BPM Atrial Rate : 105 BPM P-R Int : 134 ms QRS Dur : 88 ms QT Int : 330 ms P-R-T Axes : 21 65 2 degrees QTcB Int : 436 ms Sinus tachycardia Nonspecific T wave abnormality Abnormal ECG Confirmed by SILVANO CLAUDIO, RONNELL ([id number]), editor sound LYLE LIAO ([id number]) on 12/29/2024 9:09:58 AM Referred By: ES/TB Confirmed By: RONNELL SCHAEFER MD
--- NOTE | 2024-12-26 13:25 | RAD_ITS ---
PROCEDURE: CHEST 1 VIEW (PORTABLE) 12/26/2024 REASON FOR EXAM: CHEST PAIN TECHNIQUE: Frontal view of the chest. COMPARISON: 07/13/2023 FINDINGS: No focal consolidation. No pleural effusion or pneumothorax. Cardiac silhouette is within normal limits. No acute fractures. RAD/Chest 1 View (Portable) IMPRESSION: No focal consolidations. Reading Location: [id number]
[2024-12-26 13:30] LABS: Hematocrit 38.0 % (37-47); Hemoglobin 11.7 g/dL (12.0-15.0); Immature Granulocytes Count 0.100 X10^3/uL (0.0-0.0); Mean Corp Hgb Conc 30.8 g/dL (32-36); Mean Corpuscular Volume 75.8 fL (81-99); Mean Platelet Vol. 9.6 fl (6.2-12.0); NRBC Flagged by Analyzer 0 % (0-5); Platelet Count 379 K/mm3 (150-450); RBC Distribution Width CV 16.6 % (11.6-14.6); RBC Distribution Width SD 44.6 fl (35.1-43.9); Red Blood Count 5.01 M/mm3 (4.2-5.4); White Blood Count 13.0 K/mm3 (4.4-11.0)
[2024-12-26 13:39] VITALS: BP 125/75; PULSE 108
[2024-12-26] MEDS: Nitroglycerin SL (ED/IMG/CATH) 0.4 MG TABLET SL (13:39)
[2024-12-26 13:55] VITALS: BP 115/75; PULSE 103; RESP 19; O2SAT 95
[2024-12-26 14:09] LABS: Anion Gap 13 (5-15); BUN 9 mg/dL (4-19); BUN/Creat Ratio 10.3 RATIO (10-20); Calcium,Total 8.7 mg/dL (7.6-11.0); Carbon Dioxide 18.3 mmol/L (21.0-32.0); Chloride 106 mmol/L (98-108); Estimated Creatinine Clearance 127.57 ml/min (50-250); Glucose 113 mg/dL (70-99); Potassium 4.0 mmol/L (3.3-5.1); Troponin T High Sensitivity < 6 ng/L (<=14)
[2024-12-26] MEDS: 0.9% Normal Saline (1000mL) 1,000 ML 1000 ML IV (14:49)
[2024-12-26 15:16] LABS: Lipase 27 U/L (13-75)
[2024-12-26 15:42] VITALS: BP 113/81; PULSE 67; RESP 14; TEMP 36.2; O2SAT 100
== END 2024-12-26 15:42 | disposition home or self-care (01) ==
PROVIDERS: Emergency Provider Emergency Medicine; PCP Family Medicine; Visit Provider Emergency Medicine
DX: R07.9 Chest pain, unspecified (principal); K31.84 Gastroparesis; Z86.16 Personal history of COVID-19
CPT/HCPCS: 71045; 80048; 83690; 84484; 85025; 93005; 96361; 96374; 99285; A4216; J2405

== ENCOUNTER 2025-01-07 19:47 | Emergency (ER) | payer OTHER, SELFPAY ==
[2025-01-07 19:48] VITALS: BP 125/91; PULSE 85; RESP 18; TEMP 36.8; O2SAT 100; BMI 46.7
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
[2025-01-07 20:56] VITALS: BP 136/78; PULSE 79; RESP 16; TEMP 36.8; O2SAT 99
== END 2025-01-07 20:56 | disposition home or self-care (01) ==
PROVIDERS: Emergency Provider Emergency Medicine; PCP Family Medicine; Visit Provider Emergency Medicine
DX: S06.0X0A Concussion without loss of consciousness, initial encounter (principal); S16.1XXA Strain of muscle, fascia and tendon at neck level, initial encounter; S39.012A Strain of muscle, fascia and tendon of lower back, initial encounter; J45.909 Unspecified asthma, uncomplicated; F42.9 Obsessive-compulsive disorder, unspecified; Z79.51 Long term (current) use of inhaled steroids; Z79.899 Other long term (current) drug therapy; V43.52XA Car driver injured in collision with other type car in traffic accident, initial encounter; Z86.16 Personal history of COVID-19
CPT/HCPCS: 99282

== ENCOUNTER 2025-02-19 17:00 | Outpatient (RCR) | payer SELFPAY ==
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
--- NOTE | 2025-04-06 08:32 | HP.PT.NRP ---
Patient Information Patient Information: ALIZA BRASWELL was seen in my office for initial evaluation on 02/10/25. The following Plan of Care was established for this patient: POC Established Initial Frequency: 2-3x /Week Initial Duration: 4-6 Weeks Anticipated Interventions Patient/Client Instruction: Educate patient on: Condition and Plan of Care For the Purpose of:: To decrease pain, To improve muscle performance and motor function, To increase tolerance to activity/condition/position, To improve ability of physical actions for home/community/work/leisure and To improve gait and locomotor functions Therapeutic Exercise to Include: Strength training, Postural training, Flexibilty training, Relaxation training, Passive ROM and Active ROM For the Purpose of:: To decrease pain, To increase ROM, To improve nutrient delivery to tissue, To improve muscle performance and motor function, To increase tolerance to activity/condition/position, To improve ability of physical actions for home/community/work/leisure and To improve gait and locomotor functions Manual Therapy Techniques to Include: Petrissage, Passive ROM and Soft tissue mobilization For the Purpose of:: To decrease pain, To increase ROM, To improve nutrient delivery to tissue, To improve muscle performance and motor function, To increase tolerance to activity/condition/position, To improve ability of physical actions for home/community/work/leisure and To improve gait and locomotor functions Thermo therapy (hot pack): Yes For the Purpose of:: To decrease pain, To improve nutrient delivery to tissue and To improve muscle performance and motor function Last Seen Last Seen: This patient was last seen in our office 02/19/25. Pertinent comments regarding their Physical therapy will appear below: Pt seen 4 visits of POC but did not schedule or attend any further visits. At this point, it has been over 6 wek and I will discontinue from my care. At this point I will be discontinuing this patient from physical therapy. I would be happy to see this patient again in the future if found appropriate by the physician. Thank you! Monster Harris, DPT, OCS, CSCS Balance/Gait/Functional tests Balance/Special Test Scores Functional Gait Assessment Score: 30 % Disability: 0 Dizziness Score: 40
== END 2025-02-19 19:00 | disposition home or self-care (01) ==
LOC: PT 17:00
PROVIDERS: PCP Family Medicine; Referring Provider Family Medicine; Visit Provider Family Medicine
DX: S06.0X0D Concussion without loss of consciousness, subsequent encounter (principal); S29.012D Strain of muscle and tendon of back wall of thorax, subsequent encounter; R42 Dizziness and giddiness
CPT/HCPCS: 97110; 97140; 97162

== ENCOUNTER 2025-03-06 19:04 | Emergency (ER) | payer OTHER, SELFPAY ==
[2025-03-06 19:05] VITALS: BP 138/89; PULSE 90; RESP 16; TEMP 36.2; O2SAT 97; BMI 48.2
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
--- OUTSIDE RECORDS SUMMARY | 2025-03-06 19:45 | XMS RPT_ITS | CCD ---
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 By: #### L 500.2500, L501.4021, L100.0100 #### [facility] [address] [place], [address] Eosinophils/100 WBC (Bld) 0.5 % Normal 0-5 [facility] Comment on above: Performed By: #### L 500.2500, L501.4021, L100.0100 #### [facility] [address] [place], [address] Erythrocyte distribution width (RBC) [Ratio] 16.6 % High 11.6-14.6 [facility] Comment on above: Performed By: #### L 500.2500, L501.4021, L100.0100 #### [facility] [address] [place], [address] Hematocrit (Bld) [Volume fraction] 38.0 % Normal 37-47 [facility] Comment on above: Performed By: #### L 500.2500, L501.4021, L100.0100 #### [facility] [address] [place], [address] Hemoglobin (Bld) [Mass/Vol] 11.7 g/dL Low 12.0-15.0 [facility] Comment on above: Performed By: #### L 500.2500, L501.4021, L100.0100 #### [facility] [address] [place], [address] IG% 0.800 Normal 0.0-0.9 [facility] Comment on above: Result Comment: IG% - Immature Granulocytes (promyelocytes, myelocytes and metamyelocytes) > 1% indicates that a LEFT SHIFT is Present. Performed By: #### L 500.2500, L501.4021, L100.0100 #### [facility] [address] [place], [address] Lymphocytes/100 WBC (Bld) 7.4 % Low 19-41 [facility] Comment on above: Performed By: #### L 500.2500, L501.4021, L100.0100 #### [facility] [address] [place], [address] MCH (RBC) [Entitic mass] 23.4 pg Low 27.0-32.0 [facility] Comment on above: Performed By: #### L 500.2500, L501.4021, L100.0100 #### [facility] [address] [place], [address] MCHC (RBC) [Mass/Vol] 30.8 g/dL Low 32-36 [facility] Comment on above: Performed By: #### L 500.2500, L501.4021, L100.0100 #### [facility] [address] [place], [address] MCV (RBC) [Entitic vol] 75.8 fL Low 81-99 [facility] Comment on above: Performed By: #### L 500.2500, L501.4021, L100.0100 #### [facility] [address] [place], [address] Monocytes/100 WBC (Bld) 4.3 % Normal 0-10 [facility] Comment on above: Performed By: #### L 500.2500, L501.4021, L100.0100 #### [facility] [address] [place], [address] Neutrophils/100 WBC (Bld) 86.7 % High 47-70 [facility] Comment on above: Performed By: #### L 500.2500, L501.4021, L100.0100 #### [facility] [address] [place], [address] Nucleated RBC (Bld) [#/Vol] 0 10*3/uL Normal 0-5 [facility] Comment on above: Performed By: #### L 500.2500, L501.4021, L100.0100 #### [facility] [address] [place], [address] Platelet mean volume (Bld) [Entitic vol] 9.6 fL Normal 6.2-12.0 [facility] Comment on above: Performed By: #### L 500.2500, L501.4021, L100.0100 #### [facility] [address] [place], [address] Platelets (Bld) [#/Vol] 379 10*3/uL Normal 150-450 [facility] Comment on above: Performed By: #### L 500.2500, L501.4021, L100.0100 #### [facility] [address] [place], [address] RBC (Bld) [#/Vol] 5.01 10*6/uL Normal 4.2-5.4 [facility] Comment on above: Performed By: #### L 500.2500, L501.4021, L100.0100 #### [facility] [address] [place], [address] RDW SD 44.6 fl High 35.1-43.9 [facility] Comment on above: Performed By: #### L 500.2500, L501.4021, L100.0100 #### [facility] [address] [place], [address] WBC (Bld) [#/Vol] 13.0 10*3/uL High 4.4-11.0 [facility] Comment on above: Performed By: #### L 500.2500, L501.4021, L100.0100 #### [facility] [address] [place], [address] Chest 1 View (Portable)on Chest 1 View (Portable) [facility] Imaging Services [address] [place] [address] Chest 1 View (Portable) MR#: [id number] Acct: [id number] Name: ALIZA CLINE Rep #: [id number] : 1995 F 29 From: Anjel Hunter PCP: Dr. Rebecca De Leon MD Status: PRE ER Study: Chest 1 View (Portable) Date of Exam: 12/26/24 Exam# [id number] Ordering Dr: Monster Meneses DO PROCEDURE: CHEST 1 VIEW (PORTABLE) 12/26/2024 REASON FOR EXAM: CHEST PAIN TECHNIQUE: Frontal view of the chest. COMPARISON: 07/13/2023 FINDINGS: No focal consolidation. No pleural effusion or pneumothorax. Cardiac silhouette is within normal limits. No acute fractures. RAD/Chest 1 View (Portable) IMPRESSION: No focal consolidations. Reading Location: [id number] CC: Dr. Rebecca De Leon MD; Dr. Monster Meneses DO Supervisor Plastic Sheets: Signed Normal [facility] Emergency Department Summary on 12-26-2024 Emergency Department Summary [facility] Medical Records Department [address] [place] [address] Emergency Department Summary 12/26/24 MR#: [id number] Acct: [id number] Name: ALIZA CLINE SEPTEMBER Rep #: [id number] : 1995 29 From: Monster Meneses DO PCP: Dr. Rebecca De Leon MD Status:DEP ER Location: ED HPI History of Present Illness Chief Complaint: Chest Pain Informant: patient Onset/Context/Timing Onset: Yesterday Activity at onset: sudden Timing: Continuous Quality: Positive for Heaviness Location: Substernal, Right Parasternal, Left Parasternal, Right Chest and Left Chest Worsened By: Breathing and - (Vomiting, laying on her side) Relieved By: Nothing Associated Symptoms: Positive for Nausea, Vomiting, Dyspnea, Fever, Lightheadedness and Acid Reflux; Negative for Diaphoresis, Cough or Palpitations Narrative Narrative: Patient presents with chest pain that began yesterday. Patient states it began rather suddenly. Patient states it was there when she woke up from a nap. Patient states it has been constant since yesterday. Patient states it feels like a heaviness. Patient states it is diffuse across her entire chest. Patient also admits to some nausea and vomiting for the past few days. Patient states she has some pain over the epigastric area. Patient admits to low-grade fever of 100.5 at home. Patient also admits to some lightheadedness and shortness of breath. Patient denies any hematemesis or coffee-ground emesis. Patient denies any melena or hematochezia. CVD Risk Factors: Positive for Family History 1' Hypercholesterolemia or Smoking PE Risk Factors: Negative for Recent Travel/Surgery, Recent Immobilization, Prior DVT or PE, Cancer or OCP + Smoking + >/=35 PFSH PFSH Medical History Endometriosis Binge eating disorder MDD (major depressive disorder) Vomiting IBS (irritable bowel syndrome) Dyspepsia COVID-19 PCOS (polycystic ovarian syndrome) OCD (obsessive compulsive disorder) PTSD (post-traumatic stress disorder) Anxiety Depression PCOS (polycystic ovarian syndrome) Hypothyroidism Asthma Home Medications ???Medication ???Instructions ???Recorded ???Last Taken ???Type albuterol 90 mcg/actuation aerosol 90 mcg inhalation Q4H PRN 12/25/24 History inhaler Shortness Of Breath montelukast 10 mg tablet 10 mg PO DAILY 08/24/20 12/25/24 H istory (Singulair) cholecalciferol (vitamin D3) 1,250 1,250 mcg PO QWEEK 11/21/2108/15 History mcg (50,000 unit) capsule omeprazole 40 mg capsule,delayed 40 mg PO BID 08/14/22 12/25/24 His tory release cetirizine 10 mg tablet (Zyrtec) 10 mg PO DAILY PRN allergies 06/05 Unknown History multivitamin 1 tab PO DAILY 06/05/23 12/25/24 H istory elagolix 200 mg tablet (Orilissa) 200 mg PO BID #60 tabs 04/01/24 0 12/25/24 Rx bupropion HCl 300 mg 24 hr tablet, 300 mg PO QAM #90 tabs 11/13/24 12/25/24 Rx extended release sertraline 50 mg tablet (Zoloft) 50 mg PO DAILY #90 tabs 11/13/24 0 12/25/24 Rx topiramate 50 mg tablet 50 mg PO QHS #90 tabs 11/13/2408/15 Rx sucralfate 1 gram tablet (Carafate) 1 g PO BID #20 tabs 12/26/24 Un known Rx Allergy/AdvReac Type Severity Reaction Status Date / Time No Known Allergies Allergy Verified 12/26/24 13:20 Family History Mother Diabetes Heart disease Asthma H/O blood clots Surgical History History of tonsillectomy and adenoidectomy History of oral surgery History of carpal tunnel surgery Social History household members: friend(s) number of children: 0 current occupational status: employed current occupation: [employer] history of recent travel: No sexually active: No Smoking Status: Never smoker alcohol intake: current alcohol intake frequency: holidays/special occasions only substance use type: does not use diet: gluten free and lactose free what type of physical activity do you participate in: none seatbelt use: always do you feel safe at home: Yes additional social history: single ROS ROS ED Constitutional Constitutional ED: Reports fever(s); Denies chills Eyes Eyes: Denies blurry vision or change in vision ENT ENT ED: Denies rhinorrhea or sore throat Cardiovascular Cardiovascular: Reports chest pain; Denies palpitations Respiratory/Chest Respiratory/Chest: Reports dyspnea; Denies cough Gastrointestinal Gastrointestinal: Reports nausea and vomiting Genitourinary Genitourinary ED: Denies dysuria or hematuria Musculoskeletal Musculoskeletal: Reports neck pain; Denies back pain Integumentary Denies abscess or rash Neurologic Neurologic: Reports headache (more content not included)... Normal [facility] L501.4021on 12-26-2024 Trop T High Sen < 6 Normal <=14 [facility] Comment on above: Performed By: #### L 500.2500, L501.4021, L100.0100 #### [facility] [address] [place], [address] Lipaseon 12-26-2024 Lipase [Catalytic activity/Vol] 27 U/L Normal 13-75 [facility] Comment on above: Result Comment: Dong mosley note: LIPASE revised reference range effective 22. New Lipase methodology. Expected to produce lower values than the previous assay method. NEW Reference Range: 13 - 75 U/L Performed By: #### L 501.2450 #### [facility] [address] [place], [address] Troponin T HS 2 HRon 12-26- 025 Trop T High Sen Normal <=14 [facility] Comment on above: Result Comment: [facility] DISCHARGED Performed By: #### L 499.0042 #### [facility] [address] [place], [address] Troponin T HS 4 HRon 025 Trop T High Sen Normal <=14 [facility] Comment on above: Result Comment: Canc elled via OM: Order cancelled - Patient discharged Performed By: #### L 499.0043 #### [facility] [address] [place], [address] MR/BMS.BPon 11-13-2024 MR/BMS.[address], [address] [place], [place] [address] OFFICE VISIT Date of Service: 11/13/24 MR#: [id number] Acct: [id number] Name: ALIZA CLINE Rep #: [id number] : 1995 Provider: Dr. Alden Aguayo se, DO Age/Sex: 29/F Location: [facility] Status: Signed Intake Vital Signs 12/04/23 10:05 11/13/24 07:06 Height 5 ft 4 in 5 ft 4 in Weight: 278 lb BMI 47.7 BP 113/80 Blood Pressure Location Lt brachial Position Sitting Respiration 16 Pulse 96 Pulse Source Monitor BP Intake Visit Reasons: follow up Accompanied by: Self Allergies No Known Allergies Allergy (Verified 11/13/24 07:09) Medications ???Medication ???Instructions ???Recorded ???Confirmed ???Type albuterol 90 mcg/actuation aerosol 90 mcg inhalation Q4H PRN 11/13/24 History inhaler Shortness Of Breath montelukast 10 mg tablet 10 mg PO DAILY 08/24/20 11/13/24 H istory (Singulair) cholecalciferol (vitamin D3) 1,250 1,250 mcg PO QWEEK 11/21/2110/22 History mcg (50,000 unit) capsule omeprazole 40 mg capsule,delayed 40 mg PO BID 08/14/22 11/13/24 His tory release cetirizine 10 mg tablet (Zyrtec) 10 mg PO DAILY PRN 06/05/23 History multivitamin 1 tab PO DAILY 06/05/23 11/13/24 H istory elagolix 200 mg tablet (Orilissa) 200 mg PO BID #60 tabs 04/01/24 0 11/13/24 Rx bupropion HCl 300 mg 24 hr tablet, 300 mg PO QAM #90 tabs 11/13/24 11/13/24 Rx extended release sertraline 50 mg tablet (Zoloft) 50 mg PO DAILY #90 tabs 11/13/24 0 11/13/24 Rx topiramate 50 mg tablet 50 mg PO QHS #90 tabs 11/13/24 Rx PFSH Medical History Endometriosis Binge eating disorder MDD (major depressive disorder) Vomiting IBS (irritable bowel syndrome) Dyspepsia COVID-19 PCOS (polycystic ovarian syndrome) OCD (obsessive compulsive disorder) PTSD (post-traumatic stress disorder) Anxiety Depression PCOS (polycystic ovarian syndrome) Hypothyroidism Asthma Surgical History History of tonsillectomy and adenoidectomy History of oral surgery History of carpal tunnel surgery Family History Mother Diabetes Heart disease Asthma H/O blood clots Social History household members: friend(s) number of children: 0 current occupational status: employed current occupation: [employer] history of recent travel: No sexually active: No Smoking Status: Never smoker alcohol intake: current alcohol intake frequency: holidays/special occasions only substance use type: does not use diet: gluten free and lactose free what type of physical activity do you participate in: none seatbelt use: always do you feel safe at home: Yes additional social history: single HPI History of Present Illness History provided by: patient HPI: Aliza Cline is a 29 year old female who presents today for follow up evaluation. Patient reports that in the last month "life has been turned upside down." Recently got custody of her 15 year old niece and trying to get full custody of her. Has a court date scheduled on the . Niece has been struggling with this transition. Despite this stress, has largely been doing "ok." Is handling the stress as well as could be expected. Has been trying to be more healthy, and has lost about 15 lbs in recent past. Has been working on binge eating with behavioral skills and is doing well in this regard. Is currently working at [employer]. Did have a sleep study and was diagnosed with sleep apnea in August, and did get CPAP at the end of September, however her machine is broken. She reports that she wakes up over a hundred times likely equating to having severe sleep apnea. Feels like medications are working largely well. No significant concerns at this time. Review of Systems Constitutional Denies: fever(s), chills, change in weight or fatigue Eyes Denies: change in vision or blurry vision Ears, Nose, Mouth, Throat Denies: throat pain, neck pain or change in hearing Cardiovascular Denies: chest pain or palpitations Respiratory Denies: cough or wheezing Gastrointestinal Reports: abdominal pain; Denies: nausea, vomiting, diarrhea or constipation Genitourinary Denies: dysuria or urinary frequency Musculoskeletal Reports: joint pain; Denies: back pain, neck pain or muscle weakness Integumentary/Breast Denies: rash or new lesions Neurological Reports: headache(s) and dizziness; Denies: confusion Endocrine Denies: fatigue or excessive sweating Hematologic/Lymphatic Denies: easy bruising or easy bleeding Allergic/Immunologic Denies: wheezing Exam Ment (more content not included)... Normal [facility] CNOVon 08-19-2024 CN Office Visit (UCWSTR ) ALIZA CLINE ([id number]) 1995 F Date Time Provider Department 08/19/24 10:15 AM VALERIE MATHIS [facility] During your visit today, we recorded the following information about you: Temperature Pulse Respiration Blood pressure 97.6 degrees 96/minute 18/minute 128/74 Weight 129.6 kg Valerie Mathis, [employer] 08/19/2024 11:24 AM Signed [facility] Subjective Aliza Cline is a 29 year old female. Patient presents with: Sinus Problem: sinus pressure and drainage x 4-5 days, chest congestion and cough x 1 day 29 year old female with PMH asthma presents for illness Acute onset 4 to 6 days ago Started as sinus pressure and nasal congestion Has progressively worsened +cough +productive +headache Denies N/V/D Denies fever or chills Denies abdominal pain She presents for worsening cough I feel like it is getting worse" Concerned for pneumonia. Has used Nasal rinse Ibuprofen Denies tobacco usage The history is provided by the patient. No world language teacher was used. Sinus Problem This is a new problem. The current episode started in the past 7 days. The problem occurs constantly. The problem has been gradually worsening. Associated symptoms include congestion, coughing, fatigue, headaches and a sore throat. Pertinent negatives include no abdominal pain, anorexia, arthralgias, change in bowel habit, chest pain, chills, diaphoresis, fever, joint swelling, myalgias, nausea, neck pain, numbness, rash, swollen glands, urinary symptoms, vertigo, visual change, vomiting or weakness. Nothing aggravates the symptoms. Treatments tried: Nasal rinse, Ibuprofen. The treatment provided no relief. PAST MEDICAL HISTORY Diagnosis Date Anxiety Color blindness Obesity Oligomenorrhea 03/07/2010 Unspecified asthma(493.90) PAST SURGICAL HISTORY Procedure Laterality Date EGD W/O OR W/BRUSH/WASH 07/24/13 EGD EXTRACTION ERUPTED TOOTH/EXR 2014 [place] teeth REVISE MEDIAN N/CARPAL TUNNEL SURG Left 07/17/2014 Carpal tunnel decomp REVISE MEDIAN N/CARPAL TUNNEL SURG Right 06/02/2016 Carpal tunnel decomp TONSILLECTOMY HX 02/12/2018 ALLERGIES Dust Mites and Mold MEDICATIONS fluticasone-salmeterol HFA (ADVAIR) 230-21 mcg/actuation inhaler inhale 1 puff by mouth and INTO THE LUNGS twice a day WITH GOOD ORAL CARE AFTER USE albuterol (PROVENTIL) 2.5 mg/3 mL (0.083 %) nebulizer solution Use 2.5 mg via nebulizer. cholecalciferol (VITAMIN D3) 50 mcg (2,000 unit) tablet Take 1 tablet by mouth once daily. ORILISSA 200 mg tablet Take 1 tablet by mouth every 12 hours. topiramate (TOPAMAX) 50 mg tablet Take 50 mg by mouth daily at bedtime. sertraline (ZOLOFT) 50 mg tablet Take 1 tablet by mouth once daily. omeprazole (PRILOSEC) 40 mg capsule Take 1 capsule by mouth once daily. montelukast (SINGULAIR) 10 mg tablet Take 1 tablet by mouth once daily. buPROPion SR (ZYBAN SR; WELLBUTRIN SR) 150 mg 12 hr tablet Take 1 tablet by mouth twice daily. ondansetron orally disintegrating (ZOFRAN ODT) 4 mg disintegrating tablet Take 1 tablet by mouth every 6 hours as needed for Nausea/Vomiting. doxycycline (VIBRA-TABS) 100 mg tablet Take 1 tablet by mouth two times a day for 7 days. benzonatate (TESSALON PERLE) 100 mg capsule Take 1 capsule by mouth three times a day as needed for cough. FEMYNOR 0.25-35 mg-mcg per tablet TAKE 1 TABLET BY MOUTH EVERY DAY (Patient not taking: Reported on 08/19/2024) meloxicam (MOBIC) 15 mg tablet Take 1 tablet by mouth once daily. (Patient not taking: Reported on 08/19/2024) cyclobenzaprine (FLEXERIL) 10 mg tablet Take 1 tablet by mouth at bedtime as needed. (Patient not taking: Reported on 08/19/2024) FAMILY HISTORY Problem Relation Age of Onset Seizures Mother Heart Mother Thyroid Mother Asthma Father Seizures Maternal Grandmother Heart Maternal Grandmother [place] Seizures Brother Diabetes Brother maternal side. Thyroid Brother other (Depression/Anxiety) Brother maternal side. No Family History Other Colon Cancer/Polyps Social History Tobacco Use Smoking status: Never Smokeless tobacco: Never Substance Use Topics Alcohol use: No Drug use: No Review of Systems Constitutional: Positive for fatigue. Negative for chills, diaphoresis and fever. HENT: Positive for congestion, postnasal drip, rhinorrhea, sinus pressure, sinus pain and sore throat. Eyes: Negative for pain, discharge and itching. Respiratory: Positive for cough. Cardiovascular: Negative for chest pain. Gastrointestinal: Negative for abdominal pain, anorexia, change in bowel habit, nausea and vomiting. Musculoskeletal: Negative for arthralgias, joint swelling, myalgias and neck pain. Skin: Negative for rash. Allergic/Immunologic: Negative for environmental allergies, food allergies and immunocompromised state. Neurological: P (more content not included)... Normal [facility] XR CHEST 2V FRONTAL/LATon XR CHEST 2V FRONTAL/LAT * * *Final Report* * * DATE OF EXAM: Aug 19 2024 10:39AM WOX [id number] - XR CHEST 2V FRONTAL/LAT / PROCEDURE REASON: Acute cough * * * * Physician Interpretation * * * * EXAMINATION: CHEST RADIOGRAPH (2 VIEW FRONTAL and LATERAL) CLINICAL HISTORY: Acute cough MQ: XC2_6 EXAM DATE/TIME: 08/19/2024 10:39 AM COMPARISON: Chest x-ray dated 04/20/2016 RESULT: Lines, tubes, and devices: None. Lungs and pleura: No consolidation. No lung mass. No pleural effusion. No pneumothorax. Cardiomediastinal silhouette: Normal cardiomediastinal silhouette. Bones and soft tissues: Mild degenerative changes. IMPRESSION: No acute radiographic abnormality. Supervisor Plastic Sheets: SHER Transcribe Date/Time: Aug 19 2024 10:43A Dictated by : LING MITCHELL MD This examination was interpreted and the report reviewed and electronically signed by: LING MITCHELL MD on Aug 19 2024 10:44AM EST [id number] Normal [facility] XR Chest PA and Lateralon IMPRESSION: No acute radiographic abnormality. Supervisor Plastic Sheets: SHER Transcribe Date/Time: Aug 19 2024 10:43A Dictated by : LING MITCHELL MD This examination was interpreted and the report reviewed and electronically signed by: LING MITCHELL MD on Aug 19 2024 10:44AM EST DIVISION OF RADIOLOGY * * *Final Report* * * DATE OF EXAM: Aug 19 2024 10:39AM WOX [id number] - XR CHEST 2V FRONTAL/LAT / PROCEDURE REASON: Acute cough * * * * Physician Interpretation * * * * EXAMINATION: CHEST RADIOGRAPH (2 VIEW FRONTAL & LATERAL) CLINICAL HISTORY: Acute cough MQ: XC2_6 EXAM DATE/TIME: 08/19/2024 10:39 AM COMPARISON: Chest x-ray dated 04/20/2016 RESULT: Lines, tubes, and devices: None. Lungs and pleura: No consolidation. No lung mass. No pleural effusion. No pneumothorax. Cardiomediastinal silhouette: Normal cardiomediastinal silhouette. Bones and soft tissues: Mild degenerative changes. DIVISION OF RADIOLOGY Provider, Gloria Zambrano - 08/19/2024 * * *Final Report* * * DATE OF EXAM: Aug 19 2024 10:39AM WOX [id number] - XR CHEST 2V FRONTAL/LAT / PROCEDURE REASON: Acute cough * * * * Physician Interpretation * * * * EXAMINATION: CHEST RADIOGRAPH (2 VIEW FRONTAL & LATERAL) CLINICAL HISTORY: Acute cough MQ: [id number] EXAM DATE/TIME: 08/19/2024 10:39 AM COMPARISON: Chest x-ray dated 04/20/2016 RESULT: Lines, tubes, and devices: None. Lungs and pleura: No consolidation. No lung mass. No pleural effusion. No pneumothorax. Cardiomediastinal silhouette: Normal cardiomediastinal silhouette. Bones and soft tissues: Mild degenerative changes. IMPRESSION IMPRESSION: No acute radiographic abnormality. Supervisor Plastic Sheets: PSCB Transcribe Date/Time: Aug 19 2024 10:43A Dictated by : LING MITCHELL MD This examination was interpreted and the report reviewed and electronically signed by: LING MITCHELL MD on Aug 19 2024 10:44AM [facility] Radiology Study observation (narrative) [facility] XR Chest PA and LateralOrder ed By: [facility] Provider on 08-19-2024 [facility] NM GASTRIC EMPTYING STUDYon 11-07-2022 NM GASTRIC EMPTYING STUDY ORIGINAL EXAMINATION: GASTRIC EMPTYING STUDY11/07/2022 2:17 pm GASTRIC EMPTYING Clinical Statement: Vomiting, nausea TECHNIQUE: Standard meal consisting of: Radiopharmaceutical: Tc-99m Sulfur Colloid po Dose: 2 mCi Tc-99m sulfur colloid in 4 oz of Egg Beaters 2 slices of bread, 2 Tsp of jelly 4 oz of water Anterior and posterior images of the stomach for 4 hours Calculate geometric mean of anterior and posterior images Calculate T 1/2 for gastric emptying Reference: Kendrick TL, Patricia M, Rochelle K, et al. Consensus Recommendations for Gastric Emptying Scintigraphy: A Joint Report of the [place] [employer] Society of Nuclear Medicine. Am J Gastroenterol 2008;103:753-763. COMPARISON: No prior gastric emptying studies available comparison. HISTORY: ORDERING SYSTEM PROVIDED HISTORY: Reason for Exam: VOMITTING NAUSEA FINDINGS: 30 minutes: 100 % Retention. A value lower than 70% suggests rapid gastric emptying. 60 minutes: 100 % Retention. A value less than 30% suggests rapid gastric emptying. A value greater than 90% suggests delayed gastric emptying. 120 minutes: 91 % Retention. A value greater than 60% suggests delayed gastric emptying. 180 minutes: 50 % Retention. A value greater than 30% suggests delayed gastric emptying. 240 minutes: 28 % Retention. A value greater than 10% suggests delayed gastric emptying. There is abnormal gastric emptying of solid food. The extrapolated T-1/2 is 166 minutes. The upper limit of normal for our laboratory is 120 minutes. IMPRESSION: Abnormal delayed gastric emptying of solid food. Interpreted by: Ruth Mosqueda Preliminary Report By: Ruth Mosqueda Electronically signed By Ruth Mosqueda Dictated Date: 11/07/2022 4:28:17 PM Prelim Date: 11/07/2022 4:30:43 PM Sign Date: 11/07/2022 4:30:43 PM Ordering Provider: JOSE ANTONIO RENAE [facility] ([place]) Final Surgical Pathology Rep [facility] 10-18-2022 Final Surgical Pathology Report . Pathology Reports Accession: Collected Date/Time: Received Date/Time: Pathologist: [id number] 10/16/2022 09:33 EDT 10/17/2022 08:36 EDT MD MIKE FELTON Final Surgical Pathology Report DIAGNOSIS: GASTRIC ANTRUM, BIOPSY: - MILD CHRONIC GASTRITIS - NEGATIVE FOR H. PYLORI CLINICAL INFORMATION: SYMPTOMS, SIGNS AND ABNORMAL CLINICAL AND LABORATORY FINDINGS, NOT ELSEWHERE CLASSIFIED Procedure: ESOPHAGOGASTRODUODENOSCOPY WITH BX Preoperative diagnosis: NAUSEA, VOMITING Postoperative diagnosis: NAUSEA, VOMITING SPECIMEN: A GASTRIC ANTRUM BX GROSS DESCRIPTION: All parts labelled with patient name and [id number] Received in formalin labeled "gastric antrum" are 3 hunt tissue fragments measuring 0.1 to 0.5 x 0.2 cm. TS-1 Esther Cook, Grossing U.S. Representative/ Dr. Alin Rivera, Pathologist Dictated by Esther Cook MICROSCOPIC DESCRIPTION: The microscopic examination is performed, except in the case of Gross Only. Electronically Signed by Pathology Report verified by [facility] MIKE FELTON MD Sign out Date: 10/18/2022 12:49 Performing Lab: [facility], [address] [place] [address] Pathology Dept Disclaimer If ancillary studies were utilized, the following Laboratory Developed Test (LDT) disclaimer will apply: Under CLIA requirements, [facility] Pathology Laboratory is qualified to perform high complexity testing. For all ancillary stains, positive and negative controls stain appropriately. Performance characteristics of immunohistochemical and chromogenic in-situ hybridization tests have been determined by [facility] Pathology Laboratory. These tests are used for clinical purposes, They should not be regarded as investigational or for research. Normal [facility] ([place]) No Panel InformationOrdered By: Jose Antonio Renae on 10-17-2022 Tissue Transglutaminase IgG Ab <2 U/mL 0-5 [facility] Comment on above: Negative 0 - 5 Weak Positive 6 - 9 Positive >9 Serum or plasma IgA measurem ent (mass/volume)Ordered By: Jose Antonio Renae on 10-17-2022 IgA [Mass/Vol] 60 mg/dL [address] [place] [address] Comment on above: Performed at: [address] [id number] Director: Jose Antonio La PhD, Phone: [phone] No Panel InformationOrdered By: Dr. Renae on 10-09-2022 Endomysial IgA Antibody Negative Negative [facility] Serum IgA measurement (units /volume)Ordered By: Dr. Renae on 10-09-2022 IgA Qn (S) 61 mg/dL [address] [place] [address] Serum or plasma C reactive p rotein measurement (mass/volume)Ordered By: Dr. Renae on 10-09-2022 CRP [Mass/Vol] 7.94 mg/L 0.0-3.0 [facility] Comment on above: C-Reactive Protein ( CRP) provides useful information for thediagnosis, therapy and monitoring of inflammatory processesand associated diseases. For the evaluation of Relative Riskfor Cardiovascular Disease, a High Sensitivity CRP (HSCRP)should be ordered. Serum tissue transglutaminas e IgA antibody assay (units/volume)Ordered By: Dr. Renae on 10-09-2022 tTG IgA Qn (S) <2 U/mL 0-3 [facility] Comment on above: Negative 0 - 3 Weak Positive 4 - 10 Positive >10 Tissue Transglutaminase (tTG) has been identified as the endomysial antigen. Studies have demonstr- ated that endomysial IgA antibodies have over 99% specificity for gluten sensitive enteropathy. Stool gastrointestinal hemog lobin detection by immunologic methodOrdered By: Dr. De Leon on 09-28-2022 Lower GI hemoglobin IA Ql (Stl) [facility] Clostridium difficile detect ion by polymerase chain reactionOrdered By: Khris De Leon on 09-27-2022 C. difficile DNA FADIA+probe Ql (Unsp spec) [facility] Clostridium difficile detect ion by polymerase chain reactionOrdered By: Dr. De Leon on 09-27-2022 C. difficile DNA FADIA+probe Ql (Unsp spec) [facility] No Panel InformationOrdered By: Dr. De Leon on 09-27-2022 Stool Pancreatic Elastase 482 >200 [facility] Comment on above: Result Units: ug Sandra st./g Severe Pancreatic Insufficiency: <100 Moderate Pancreatic Insufficiency: 100 - 200 Normal: >200Performed at: - [facility] [address] [id number] Director: Breann Hannah MD, Phone: [phone] Stool enteric pathogen panel by probe and target amplification methodOrdered By: Khris De Leon on 09-27-2022 Gastrointestinal pathogens panel FADIA+probe (Stl) [facility] Stool enteric pathogen panel by probe and target amplification methodOrdered By: Dr. De Leon on 09-27-2022 Gastrointestinal pathogens panel FADIA+probe (Stl) [facility] Stool gastrointestinal hemog lobin detection by immunologic methodOrdered By: Khris De Leon on 09-27-2022 Lower GI hemoglobin IA Ql (Stl) [facility] Stool lactoferrin detection by immunoassayOrdered By: Khris De Leon on 09-27-2022 Lactoferrin IA Ql (Stl) [facility] Stool lactoferrin detection by immunoassayOrdered By: Dr. De Leon on 09-27-2022 Lactoferrin IA Ql (Stl) [facility] Absolute lymphocyte countOrd ered By: Dr. De Leon on 08-16-2022 Lymphocytes Auto (Unsp spec) [#/Vol] 2.54 10*3/uL 0.83-4.51 [facility] Basophil percentageOrdered B y: Dr. De Leon on 08-16-2022 Amylase [Catalytic activity/Vol] 21 U/L 25-115 [facility] Basophils/100 WBC (Bld) 0.5 % 0-1 [facility] Bilirubin [Mass/Vol] 0.20 mg/dL 0.20-1.00 [facility] Comment on above: For patients on eltr ombopag therapy, use of Dimension [place] TBIL is not recommended. Chloride [Moles/Vol] 108 mmol/L 98-107 [facility] Eosinophils/100 WBC (Bld) 0.9 % 0-5 [facility] Glucose [Mass/Vol] 97 mg/dL 74-106 [facility] Neutrophils (Bld) [#/Vol] 5.3 10*3/uL 2.0-7.7 [facility] Neutrophils/100 WBC (Bld) 61.2 % 47-70 [facility] Potassium [Moles/Vol] 4.0 mmol/L 3.5-5.1 [facility] Protein [Mass/Vol] 6.1 g/dL 6.4-8.2 [facility] Sodium [Moles/Vol] 139 mmol/L 136-145 [facility] WBC (Bld) [#/Vol] 8.7 10*3/uL 4.4-11.0 [facility] Blood erythrocytes count (nu mber/volume)Ordered By: Dr. De Leon on 08-16-2022 RBC (Bld) [#/Vol] 4.57 10*6/uL 4.2-5.4 [facility] Blood hemoglobin measurement (mass/volume)Ordered By: Dr. De Leon on 08-16-2022 Hemoglobin (Bld) [Mass/Vol] 12.3 g/dL 12.0-15.0 [facility] Blood lymphocytes/100 leukoc ytesOrdered By: Dr. De Leon on 08-16-2022 Lymphocytes/100 WBC (Bld) 29.3 % 19-41 [facility] Blood monocytes/100 leukocyt esOrdered By: Dr. De Leon on 08-16-2022 Monocytes/100 WBC (Bld) 7.5 % 0-10 [facility] Blood platelet mean volumeOr dered By: Dr. De Leon on 08-16-2022 Platelet mean volume (Bld) [Entitic vol] 10.4 fL 6.2-12.0 [facility] Determination of erythrocyte mean corpuscular volume (MCV)Ordered By: Dr. De Leon on 08-16-2022 MCV (RBC) [Entitic vol] 87.3 fL 81-99 [facility] Hematocrit Auto (Bld) [Volum e fraction]Ordered By: Dr. De Leon on 08-16-2022 Hematocrit (Bld) [Volume fraction] 39.9 % 37-47 [facility] Laboratory - Chemistry and C hemistry - challengeOrdered By: Dr. De Leon on 08-16-2022 ALP [Catalytic activity/Vol] 63 U/L 45-117 [facility] ALT [Catalytic activity/Vol] 33 U/L 13-56 [facility] CO2 [Moles/Vol] 27.0 mmol/L 21.0-32.0 [facility] Globulin (S) [Mass/Vol] 2.5 g/dL 2.2-4.2 [facility] Lipase [Catalytic activity/Vol] 33 U/L 13-75 [facility] Comment on above: Please note:LIPASE r evised reference range effective 22. New Lipase methodology. Expected to produce lower values than the previous assay method. NEW Reference Range: 13 - 75 U/L Urea nitrogen/Creatinine [Mass ratio] 6.4 mg/mg 10-20 [facility] Laboratory - Hematology and Cell countsOrdered By: Dr. De Leon on 08-16-2022 Erythrocyte distribution width (RBC) [Entitic vol] 42.6 fL 35.1-43.9 [facility] Erythrocyte distribution width (RBC) [Ratio] 13.4 % 11.6-14.6 [facility] Immature granulocytes/100 WBC (Bld) 0.600 % 0.0-0.9 [facility] Comment on above: IG% - Immature Granu locytes (promyelocytes, myelocytes and metamyelocytes) > 1% indicates that a LEFT SHIFT is Present. MCH (RBC) [Entitic mass] 26.9 pg 27.0-32.0 [facility] Nucleated RBC/100 WBC (Bld) [Ratio] 0 % 0-5 [facility] MCHC Auto (RBC) [Mass/Vol]Or dered By: Dr. De Leon on 08-16-2022 MCHC (RBC) [Mass/Vol] 30.8 g/dL 32-36 [facility] No Panel InformationOrdered By: Dr. De Leon on 08-16-2022 Estimated GFR (MDRD) Amer 92 mL/min >60 [facility] Comment on above: GFR Calc Estimated GFR (MDRD) Non-Af Amer 76 mL/min >60 [facility] Comment on above: Non- GFR Calc Platelets bldOrdered By: Dr. De Leon on 08-16-2022 Platelets (Bld) [#/Vol] 338 10*3/uL 150-450 [facility] Serum or plasma albumin adria urement (mass/volume)Ordered By: Dr. De Leon on 08-16-2022 Albumin [Mass/Vol] 3.6 g/dL 3.2-5.0 [facility] Serum or plasma albumin/glob ulin mass ratioOrdered By: Dr. De Leon on 08-16-2022 Albumin/Globulin [Mass ratio] 1.4 {ratio} 0.9-2.4 [facility] Serum or plasma calcium adria urement (mass/volume)Ordered By: Dr. De Leon on 08-16-2022 Calcium [Mass/Vol] 8.9 mg/dL 8.5-10.1 [facility] Serum or plasma creatinine m easurement (mass/volume)Ordered By: Dr. De Leon on 04-26-2023 Creatinine [Mass/Vol] 0.94 mg/dL 0.55-1.02 [facility] Comment on above: The validity of the calculated GFR & GFRAA in patients over 70 years has not been determined. Clinical correlation is essential. Serum or plasma urea nitroge n measurement (mass/volume)Ordered By: Dr. De Leon on 08-16-2022 Urea nitrogen [Mass/Vol] 6 mg/dL 7-18 [facility] Thin prep Papanicolaou smear with manual screeningOrdered By: Dr. De Leon on 08-16-2022 Thin prep Papanicolaou smear with manual screening 27 U/L 15-37 [facility] Thin prep Papanicolaou smear with manual screening 4 5-15 [facility] Absolute lymphocyte countOrd ered By: Dr. De Leon on 08-10-2022 Lymphocytes Auto (Unsp spec) [#/Vol] 2.07 10*3/uL 0.83-4.51 [facility] Basophil percentageOrdered B y: Dr. De Leon on 08-10-2022 Basophils/100 WBC (Bld) 0.4 % 0-1 [facility] Bilirubin [Mass/Vol] 0.20 mg/dL 0.20-1.00 [facility] Comment on above: For patients on eltr ombopag therapy, use of Dimension [place] TBIL is not recommended. Chloride [Moles/Vol] 108 mmol/L 98-107 [facility] Eosinophils/100 WBC (Bld) 0.4 % 0-5 [facility] Glucose [Mass/Vol] 94 mg/dL 74-106 [facility] Neutrophils (Bld) [#/Vol] 10.0 10*3/uL 2.0-7.7 [facility] Neutrophils/100 WBC (Bld) 77.0 % 47-70 [facility] Potassium [Moles/Vol] 4.0 mmol/L 3.5-5.1 [facility] Protein [Mass/Vol] 7.1 g/dL 6.4-8.2 [facility] Sodium [Moles/Vol] 136 mmol/L 136-145 [facility] WBC (Bld) [#/Vol] 12.9 10*3/uL 4.4-11.0 [facility] Blood erythrocytes count (nu mber/volume)Ordered By: Dr. De Leon on 08-10-2022 RBC (Bld) [#/Vol] 4.62 10*6/uL 4.2-5.4 [facility] Blood hemoglobin measurement (mass/volume)Ordered By: Dr. De Leon on 08-10-2022 Hemoglobin (Bld) [Mass/Vol] 12.7 g/dL 12.0-15.0 [facility] Blood lymphocytes/100 leukoc ytesOrdered By: Dr. De Leon on 08-10-2022 Lymphocytes/100 WBC (Bld) 16.0 % 19-41 [facility] Blood monocytes/100 leukocyt esOrdered By: Dr. De Leon on 08-10-2022 Monocytes/100 WBC (Bld) 5.2 % 0-10 [facility] Blood platelet mean volumeOr dered By: Dr. De Leon on 08-10-2022 Platelet mean volume (Bld) [Entitic vol] 10.6 fL 6.2-12.0 [facility] Determination of erythrocyte mean corpuscular volume (MCV)Ordered By: Dr. De Leon on 08-10-2022 MCV (RBC) [Entitic vol] 85.7 fL 81-99 [facility] Hematocrit Auto (Bld) [Volum e fraction]Ordered By: Dr. De Leon on 08-10-2022 Hematocrit (Bld) [Volume fraction] 39.6 % 37-47 [facility] Laboratory - Chemistry and C hemistry - challengeOrdered By: Dr. De Leon on 08-10-2022 ALP [Catalytic activity/Vol] 70 U/L 45-117 [facility] ALT [Catalytic activity/Vol] 31 U/L 13-56 [facility] CO2 [Moles/Vol] 23.0 mmol/L 21.0-32.0 [facility] Cobalamin (Vitamin B12) [Mass/Vol] 1736 pg/mL 211-911 [facility] Globulin (S) [Mass/Vol] 3.4 g/dL 2.2-4.2 [facility] Urea nitrogen/Creatinine [Mass ratio] 9.9 mg/mg 10-20 [facility] Laboratory - Hematology and Cell countsOrdered By: Dr. De Leon on 08-10-2022 Erythrocyte distribution width (RBC) [Entitic vol] 41.6 fL 35.1-43.9 [facility] Erythrocyte distribution width (RBC) [Ratio] 13.3 % 11.6-14.6 [facility] Immature granulocytes/100 WBC (Bld) 1.000 % 0.0-0.9 [facility] Comment on above: IG% - Immature Granu locytes (promyelocytes, myelocytes and metamyelocytes) > 1% indicates that a LEFT SHIFT is Present. MCH (RBC) [Entitic mass] 27.5 pg 27.0-32.0 [facility] Nucleated RBC/100 WBC (Bld) [Ratio] 0 % 0-5 [facility] MCHC Auto (RBC) [Mass/Vol]Or dered By: Dr. De Leon on 08-10-2022 MCHC (RBC) [Mass/Vol] 32.1 g/dL 32-36 [facility] No Panel InformationOrdered By: Dr. De Leon on 08-10-2022 Estimated GFR (MDRD) Amer 109 mL/min >60 [facility] Comment on above: GFR Calc Estimated GFR (MDRD) Non-Af Amer 90 mL/min >60 [facility] Comment on above: Non- GFR Calc Vitamin D 25-Hydroxy 93.5 ng/mL [facility] Comment on above: Vitamin D 25(OH) Sta tus Range Deficiency <20 ng/mL (50nmol/L) Insufficiency 20 - 30 ng/mL (50 - 75 nmol/L) Sufficiency 30 - 100 ng/mL (75 - 250 nmol/L) Toxicity >100 ng/mL (>250 nmol/L) Platelets bldOrdered By: Dr. De Leon on 08-10-2022 Platelets (Bld) [#/Vol] 404 10*3/uL 150-450 [facility] Serum Helicobacter pylori Ig G antibody assay (units/volume)Ordered By: Dr. De Leon on 08-10-2022 H. pylori IgG Qn (S) 0.14 0.00-0.79 [facility] Comment on above: Result Units: Index Value Negative <0.80 Equivocal 0.80 - 0.89 Positive >0.89Performed at: [address] [id number] Director: Jose Antonio La PhD, Phone: [phone] Serum or plasma albumin adria urement (mass/volume)Ordered By: Dr. De Leon on 08-10-2022 Albumin [Mass/Vol] 3.7 g/dL 3.2-5.0 [facility] Serum or plasma albumin/glob ulin mass ratioOrdered By: Dr. De Leon on 08-10-2022 Albumin/Globulin [Mass ratio] 1.1 {ratio} 0.9-2.4 [facility] Serum or plasma calcium adria urement (mass/volume)Ordered By: Dr. De Leon on 08-10-2022 Calcium [Mass/Vol] 9.0 mg/dL 8.5-10.1 [facility] Serum or plasma creatinine m easurement (mass/volume)Ordered By: Dr. De Leon on 08-10-2022 Creatinine [Mass/Vol] 0.81 mg/dL 0.55-1.02 [facility] Comment on above: The validity of the calculated GFR & GFRAA in patients over 70 years has not been determined. Clinical correlation is essential. Serum or plasma urea nitroge n measurement (mass/volume)Ordered By: Dr. De Leon on 08-10-2022 Urea nitrogen [Mass/Vol] 8 mg/dL 7-18 [facility] Thin prep Papanicolaou smear with manual screeningOrdered By: Dr. De Leon on 08-10-2022 Thin prep Papanicolaou smear with manual screening 22 U/L 15-37 [facility] Thin prep Papanicolaou smear with manual screening 5 5-15 [facility] Cervical or vagninal specime n microscopic examination by cytology stain (reported ason 11-21-2021 Cytology report Cyto stain Doc (Cvx/Vag) Comment . [facility] Work Phone: Comment on above: The Pap smear is a s creening test designed to aid in thedetection of premalignant and malignant conditions of theuterine cervix. It is not a diagnostic procedure andshould not be used as the sole means of detecting cervicalcancer. Both false-positive and false-negative reports dooccur. Laboratory - Cytologyon Supervisor Plastic Sheets Cyto stain Nom (Cvx/Vag) [ID] Comment . [facility] Work Phone: Comment on above: Raysa Winkler, Cytot echnologist (ASCP) Laboratory - Miscellaneous t estson 11-21-2021 Service comment (Unsp spec) [Interp] Comment . [facility] Work Phone: Comment on above: This liquid based Th inPrep(R) pap test was screened withthe use of an image guided system. Service comment (Unsp spec) [Interp] . . [facility] Work Phone: No Panel Informationon 11-21 Human Papillomavirus Screen Comment . [facility] Work Phone: Comment on above: The HPV DNA reflex c amrit were not met with this specimenresult therefore, no HPV testing was performed.Performed at: [address] [id number] Director: Kate Weldon MD, Phone: [phone] Pathology report final diagnosis Narrative Comment . [facility] Work Phone: Comment on above: NEGATIVE FOR INTRAEP ITHELIAL LESION OR MALIGNANCY. Vital Signs Date Time Vital Sign Value Performing Clinician Facility 08-19-2024 10:18-0400 Body mass index (BMI) [Ratio] 48.63 kg/m2 Valerie Mathis APRN.RAILROAD MECHANIC Work Phone: [facility] 08-19-2024 10:18-0400 Body temperature 97.59 [degF] Valerie Mathis ROAD CONDUCTOR.RAILROAD MECHANIC Work Phone: [facility] 08-19-2024 10:18-0400 Body weight 129.[address] CONDUCTOR.RAILROAD MECHANIC Work Phone: [facility] 08-19-2024 10:18-0400 Diastolic blood pressure 74 mm[Hg] Valerie Mathis ROAD CONDUCTOR.RAILROAD MECHANIC Work Phone: [facility] 08-19-2024 10:18-0400 Heart rate 96 /min Valerie Mathis ROAD CONDUCTOR.RAILROAD MECHANIC Work Phone: [facility] 08-19-2024 10:18-0400 Respiratory rate 18 /min Valerie Mathis ROAD CONDUCTOR.RAILROAD MECHANIC Work Phone: [facility] 08-19-2024 10:18-0400 SaO2% (BldA) [Mass fraction] 98 % Valerie Mathis ROAD CONDUCTOR.RAILROAD MECHANIC Work Phone: [facility] 08-19-2024 10:18-0400 Systolic blood pressure 128 mm[Hg] Valerie Mathis ROAD CONDUCTOR.RAILROAD MECHANIC Work Phone: [facility] 10-16-2022 10:06-0400 Diastolic Blood Pressure Non-Invasive [address] JOSE ANTONIO RENAE MD [facility] 10-16-2022 10:06-0400 Heart rate 74 /min DR JOSE ANTONIO RENAE MD [facility] 10-16-2022 10:06-0400 Respiratory rate 24 /min DR JOSE ANTONIO RENAE MD [facility] 10-16-2022 10:06-0400 Systolic Blood Pressure Non-Invasive [address] JOSE ANTONIO RENAE MD [facility] 10-16-2022 09:50-0400 Diastolic Blood Pressure Non-Invasive [address] JOSE ANTONIO RENAE MD [facility] 10-16-2022 09:50-0400 Heart rate 79 /min DR JOSE ANTONIO RENAE MD [facility] 10-16-2022 09:50-0400 Respiratory rate 20 /min DR JOSE ANTONIO RENAE MD [facility] 10-16-2022 09:50-0400 Systolic Blood Pressure Non-Invasive [address] JOSE ANTONIO RENAE MD [facility] 10-16-2022 09:45-0400 Diastolic Blood Pressure Non-Invasive [address] JOSE ANTONIO RENAE MD [facility] 10-16-2022 09:45-0400 Heart rate 83 /min DR JOSE ANTONIO RENAE MD [facility] 10-16-2022 09:45-0400 Respiratory rate 20 /min DR JOSE ANTONIO RENAE MD [facility] 10-16-2022 09:45-0400 Systolic Blood Pressure Non-Invasive [address] JOSE ANTONIO RENAE MD [facility] 10-16-2022 09:30-0400 Respiratory Rate - Anes 20 br/min DR JOSE ANTONIO RENAE MD [facility] 10-16-2022 09:25-0400 Respiratory Rate - Anes 19 br/min DR JOSE ANTONIO RENAE MD [facility] 10-16-2022 09:20-0400 Respiratory Rate - Anes 32 br/min DR JOSE ANTONIO RENAE MD [facility] 10-16-2022 08:32-0400 Heart rate 87 /min DR JOSE ANTONIO RENAE MD [facility] 10-16-2022 08:24-0400 Body height 162.[address] JOSE ANTONIO RENAE MD [facility] 10-16-2022 08:24-0400 Body weight 114.[address] JOSE ANTONIO RENAE MD [facility] 10-16-2022 08:24-0400 Body weight 43.41 kg/m2 DR JOSE ANTONIO RENAE MD [facility] 11-21-2021 11:04-0400 Body height 162.[address] Khris De Leon Work Phone: [facility] Work Phone: 11-21-2021 11:04-0400 Body mass index (BMI) [Ratio] 46.3 kg/m2 Dr. Khris De Leon Work Phone: [facility] Work Phone: 11-21-2021 11:04-0400 Body weight 122.[address] Khris De Leon Work Phone: [facility] Work Phone: 11-21-2021 11:04-0400 Diastolic blood pressure 70 mm[Hg] Dr. Khris De Leon Work Phone: [facility] Work Phone: 11-21-2021 11:04-0400 Systolic blood pressure 116 mm[Hg] Dr. Khris De Leon Work Phone: [facility] Work Phone: Encounters Encounter Date Encounter Type Care Provider Facility Start: 02-19-2025 ambulatory Rebecca De Leon Fac lity:[facility] Start: 01-07-2025 End: 01-07-2025 [facility] Facility[facility] Start: 12-26-2024 End: 12-26-2024 Emergency department patient visit [facility] Facility:[facility] Start: 11-13-2024 End: 11-13-2024 ambulatory Rebecca De Leon Facility:[facility] Start: 08-19-2024 End: 08-19-2024 Subsequent hospital visit by physician Xr [facility] Work Phone: Radiology Comment on above: Acute cough [R05.1] Start: 08-19-2024 End: 08-19-2024 Patient encounter procedure Valerie Mathis APRN.CNP Work Phone: [facility] Comment on above: Acute cough (Primary Dx); Sinobronchitis Start: 08-19-2024 End: 08-19-2024 ambulatory VALERIE MATHIS Facility:[facility] Start: 11-07-2022 End: 11-08-[address] JOSE ANTONIO RENAE MD Facility:[facility] Start: 10-17-2022 End: 10-17-2022 ambulatory [facility] Work Phone: Start: 10-17-2022 End: 10-17-2022 [facility] Start: 10-16-2022 End: 10-16-[address] JOSE ANTONIO RENAE MD Facility:[facility] Start: 10-16-2022 End: 10-16-[address] JOSE ANTONIO RENAE MD [facility] Start: 10-09-2022 End: 10-09-2022 ambulatory [facility] Work Phone: Start: 10-09-2022 End: 10-09-2022 [facility] Start: 09-27-2022 End: 09-27-2022 Patient encounter procedure [facility]-Laboratory, Specimen Start: 09-13-2022 End: 09-13-2022 ambulatory [facility] Work Phone: Start: 09-13-2022 End: 09-13-2022 Patient encounter procedure [facility]-Nuclear Medicine, [facility] Start: 08-16-2022 End: 08-16-2022 ambulatory [facility] Work Phone: Start: 08-16-2022 End: 08-16-2022 Patient encounter procedure [facility]-Ultrasound, [facility] Start: 08-10-2022 End: 08-10-2022 [facility] Start: 08-09-2022 End: 08-09-2022 ambulatory [facility] Work Phone: Start: 08-09-2022 End: 08-09-2022 Patient encounter procedure [facility]-Radiology, [facility] Start: 12-06-2021 End: 12-06-[address] Khris De Leon Work Phone: [facility]-Radiology, [place] Start: 11-21-2021 End: 11-21-[address] Khris De Leon Work Phone: [facility]-Laboratory, Specimen Start: 11-21-2021 End: 11-21-[address] Khris De Leon Work Phone: [facility] Procedures Date Procedure Procedure Detail Performing Clinician Start: 08-19-2024 Radiologic exam ches t [address] CONDUCTOR.[employer] Work Phone: Start: 09-27-2022 Clostridium difficil e detection Start: 09-27-2022 Gastric Occult Blood Start: 09-27-2022 Lactoferrin measurement Start: 09-27-2022 Measurement of occul t blood in stool specimen using immunoassay Start: 09-27-2022 Nucleic acid assay Start: 09-13-2022 Radionuclide imaging of liver and/or biliary tract using radioactive isotope Start: 08-16-2022 Ultrasonography of abdomen Start: 08-09-2022 Radiography of esophagus Start: 12-06-2021 Plain chest X-ray Dr. Farideh De Leon Work Phone: [facility] wil[facility] nerve DR JOSE ANTONIO RENAE MD Gastric Occult Blood Measurement of occul t blood in stool specimen using immunoassay Tonsillectomy and adenoidectomy DR JOSE ANTONIO RENAE MD Tooth extraction, multiple D R JOSE ANTONIO RENAE MD Comment on above: wisdom teeth Plan of Treatment Date Care Activity Detail Author Start: 02-04-2034 Urine microalbumin profile DTa P,Tdap,Td Vaccine (8 - Td or Tdap) [facility] Start: 12-23-2023 Covid-19 Vaccine ( season) Covid-19 Vaccine ( season) [facility] Start: 12-23-2023 Influenza vaccination Influenza Vacc ine (#1) [facility] Start: 05-02-2021 Screening for malign ant neoplasm of cervix Cervical Cancer Screening [facility] Start: 2013 Anxiety Screening Anxiety Screening [facility] Start: 2013 Depression Screening Depression Scre josh [facility] Start: 2013 Hepatitis C screening Hepatitis C Sc paulette [facility] Start: 2013 HIV screening HIV Screening [facility] Immunizations Immunization Date Immunization Notes Care Provider Chris loerasuleman 10-07-2013 hepatitis A vaccine, adult dosage Valerie Mathis ROAD CONDUCTOR.[facility] Work Phone: [facility] 01-15-2012 Meningococcal, MCV4, unspecified conjugate formulation(groups A, C, Y and W-135) Valerie Mathis RO[address] CONDUCTOR.[employer] Work Phone: [facility] 01-17-2011 human papilloma viru s vaccine, quadrivalent Valerie Mathis ROAD CONDUCTOR.[employer] Work Phone: [facility] Work Phone: 11-29-2009 human papilloma viru s vaccine, quadrivalent Valerie Mathis ROAD CONDUCTOR.[employer] Work Phone: [facility] 03-25-2007 human papilloma viru s vaccine, quadrivalent Valerie Mathis ROAD CONDUCTOR.[employer] Work Phone: [facility] 03-25-2007 influenza virus vaccine, unspecified formulation Valerie Mathis ROAD CONDUCTOR.[employer] Work Phone: [facility] 03-25-2007 Meningococcal, MCV4, unspecified conjugate formulation(groups A, C, Y and W-135) Valerie Mathis ROAD CONDUCTOR.[employer] Work Phone: [facility] 03-25-2007 tetanus toxoid, redu kevin diphtheria toxoid, and acellular pertussis vaccine, adsorbed Valerie Mathis ROAD CONDUCTOR.[employer] Work Phone: [facility] 09-01-1999 diphtheria, tetanus toxoids and acellular pertussis vaccine Valerie Mathis ROAD CONDUCTOR.[employer] Work Phone: [facility] 09-01-1999 measles, mumps and rubella virus vaccine Valerie Mathis ROAD CONDUCTOR.[employer] Work Phone: [facility] 09-01-1999 poliovirus vaccine, inactivated Valerie Mathis ROAD CONDUCTOR.[employer] Work Phone: [facility] 04-23-1998 chicken pox (disease) Jessic a Mathis ROAD CONDUCTOR.[employer] Work Phone: [facility] 03-25-1996 diphtheria, tetanus toxoids and acellular pertussis vaccine Valerie Mathis ROAD CONDUCTOR.[employer] Work Phone: [facility] 03-25-1996 haemophilus influenz ae type b vaccine, HbOC conjugate Valerie Mathis ROAD CONDUCTOR.[employer] Work Phone: [facility] 03-25-1996 measles, mumps and rubella virus vaccine Valerie Mathis ROAD CONDUCTOR.[employer] Work Phone: [facility] 1995 hepatitis B vaccine, pediatric or pediatric/adolescent dosage Valerie Mathis ROAD CONDUCTOR.[employer] Work Phone: [facility] 1995 diphtheria, tetanus toxoids and acellular pertussis vaccine Valerie Mathis ROAD CONDUCTOR.[employer] Work Phone: [facility] 1995 haemophilus influenz ae type b vaccine, HbOC conjugate Valerie Mathis ROAD CONDUCTOR.[employer] Work Phone: [facility] 1995 poliovirus vaccine, inactivated Valerie Mathis ROAD CONDUCTOR.[employer] Work Phone: [facility] 1995 diphtheria, tetanus toxoids and acellular pertussis vaccine Valerie Mathis ROAD CONDUCTOR.[employer]RO[employer] Work Phone: [facility] 1995 haemophilus influenz ae type b vaccine, HbOC conjugate Valerie Mathis ROAD CONDUCTOR.[employer] Work Phone: [facility] 1995 poliovirus vaccine, inactivated Valerie Mathis ROAD CONDUCTOR.[employer] Work Phone: [facility] 1995 diphtheria, tetanus toxoids and acellular pertussis vaccine Valerie Mathis ROAD CONDUCTOR.[employer]RO[employer] ME[employer] Work Phone: [facility] Work Phone: 1995 haemophilus influenz ae type b vaccine, HbOC conjugate Valerie Mathis ROAD CONDUCTOR.[employer]RO[employer] Work Phone: [facility] 1995 poliovirus vaccine, inactivated Valerie Mathis ROAD CONDUCTOR.[employer] Work Phone: [facility] 1995 hepatitis B vaccine, pediatric or pediatric/adolescent dosage Valerie Mathis ROAD CONDUCTOR.[employer] Work Phone: [facility] 1995 hepatitis B vaccine, pediatric or pediatric/adolescent dosage Valerie Mathis ROAD CONDUCTOR.[employer] Work Phone: [facility] Payers Date Payer Category Payer Unknown [id number] 2024 Unknown [id number] 2024 Self-pay [id number] 2024 Private Health Insurance [facility] [id number] 2022 Unknown [id number] 1995 Unknown [id number] 1995 Unknown [id number] Unknown [id number] Unknown [id number] Unknown [id number] Unknown [id number] Unknown [id number] Unknown [id number] Social History Date Type Detail Facility Start: 11-21-2021 [facility] Start: 1995 Sex Assigned At Female [facility] Start: 03-04-2013 End: 10-16-2022 Tobacco smoking status Never smoked tobacco (finding) [facility] Start: 03-04-2013 Tobacco use and exposure Smokeless tobacco non-user [facility] Start: 10-07-2018 Alcoholic beverage intake Current non-drinker of alcohol (finding) [facility] Start: 10-07-2018 End: 03-28-2020 History of Social function [facility] Start: 10-07-2018 End: 03-28-2020 Tobacco use panel [facility] Adult Depression Screening Assessment 0 [facility] Start: 1995 Sex assigned at Not on file [facility] Functional Status Date Assessment Result Facility 10-16-2022 Functional Status Awake, Resting [facility] 10-16-2022 Functional Status Maintained [facility] 08-27-2014 Are you deaf, or do you have serious difficulty hearing No 08/27/2014 8:06 AM Madai Gomez RN No [facility] 08-27-2014 Are you blind, or do you have serious difficulty seeing, even when wearing glasses No 08/27/2014 8:06 AM Madai Gomez RN No [facility] 08-27-2014 Do you have serious difficulty walking or climbing stairs No 08/27/2014 8:06 AM Madai Gomez RN No [facility] 08-27-2014 Because of a physica l, mental, or emotional condition, do you have difficulty doing errands alone such as visiting a physician's office or shopping No 08/27/2014 8:06 AM EDT Madai Dahl RN No [facility] 07-27-2014 Do you have difficul ty dressing or bathing No 07/27/2014 9:04 AM EDT Pauline Spaulding MA No [facility] Mental Status Date Assessment Result Facility 10-16-2022 Mental Status Oriented x 4 [facility] 10-16-2022 Mental Status [facility] 08-27-2014 Because of a physica l, mental, or emotional condition, do you have serious difficulty concentrating, remembering, or making decisions No 08/27/2014 8:06 AM EDT Madai Dahl RN No [facility] Clinical Notes 11-21-2021 to 08-19-2024 Valerie Mathis APRN.CNP - 08/19/2024 11:00 AM EDValerie Edwards APRN.CNP - 08/19/2024 10:21 AM EDTPatient Jose Salas RT(R) - 08/19/2024 10:30 AM EDT Note Date & Type Note Facility 08-19-2024 Note HNO ID: [id number] Author: VALERIE MATHIS APRN.CNP Service: ? Author Type: Nurse Practitioner Type: Progress Notes Filed: 08/19/2024 11:24 Note Text: CXR reveals no pneumonia or masses Patient notified. [facility] 08-19-2024 History of Present illness Narrative CXR reveals no pneumonia or masses Patient notified. [facility] Subjective Aliza Cline is a 29 year old female. Patient presents with: Sinus Problem: sinus pressure and drainage x 4-5 days, chest congestion and cough x 1 day 29 year old female with PMH asthma presents for illness Acute onset 4 to 6 days ago Started as sinus pressure and nasal congestion Has progressively worsened +cough +productive +headache Denies N/V/D Denies fever or chills Denies abdominal pain She presents for worsening cough I feel like it is getting worse Concerned for pneumonia. Has used Nasal rinse Ibuprofen Denies tobacco usage The history is provided by the patient. No world language teacher was used. Sinus Problem This is a new problem. The current episode started in the past 7 days. The problem occurs constantly. The problem has been gradually worsening. Associated symptoms include congestion, coughing, fatigue, headaches and a sore throat. Pertinent negatives include no abdominal pain, anorexia, arthralgias, change in bowel habit, chest pain, chills, diaphoresis, fever, joint swelling, myalgias, nausea, neck pain, numbness, rash, swollen glands, urinary symptoms, vertigo, visual change, vomiting or weakness. Nothing aggravates the symptoms. Treatments tried: Nasal rinse, Ibuprofen. The treatment provided no relief. PAST MEDICAL HISTORY Diagnosis Date Anxiety Color blindness Obesity Oligomenorrhea 03/07/2010 Unspecified asthma(493.90) PAST SURGICAL HISTORY Procedure Laterality Date EGD W/O OR W/BRUSH/WASH 07/24/13 EGD EXTRACTION ERUPTED TOOTH/EXR 2014 [place] teeth REVISE MEDIAN N/CARPAL TUNNEL SURG Left 07/17/2014 Carpal tunnel decomp REVISE MEDIAN N/CARPAL TUNNEL SURG Right 06/02/2016 Carpal tunnel decomp TONSILLECTOMY HX 02/12/2018 ALLERGIES Dust Mites and Mold MEDICATIONS fluticasone-salmeterol HFA (ADVAIR) 230-21 mcg/actuation inhaler inhale 1 puff by mouth and INTO THE LUNGS twice a day WITH GOOD ORAL CARE AFTER USE albuterol (PROVENTIL) 2.5 mg/3 mL (0.083 %) nebulizer solution Use 2.5 mg via nebulizer. cholecalciferol (VITAMIN D3) 50 mcg (2,000 unit) tablet Take 1 tablet by mouth once daily. ORILISSA 200 mg tablet Take 1 tablet by mouth every 12 hours. topiramate (TOPAMAX) 50 mg tablet Take 50 mg by mouth daily at bedtime. sertraline (ZOLOFT) 50 mg tablet Take 1 tablet by mouth once daily. omeprazole (PRILOSEC) 40 mg capsule Take 1 capsule by mouth once daily. montelukast (SINGULAIR) 10 mg tablet Take 1 tablet by mouth once daily. buPROPion SR (ZYBAN SR; WELLBUTRIN SR) 150 mg 12 hr tablet Take 1 tablet by mouth twice daily. ondansetron orally disintegrating (ZOFRAN ODT) 4 mg disintegrating tablet Take 1 tablet by mouth every 6 hours as needed for Nausea/Vomiting. doxycycline (VIBRA-TABS) 100 mg tablet Take 1 tablet by mouth two times a day for 7 days. benzonatate (TESSALON PERLE) 100 mg capsule Take 1 capsule by mouth three times a day as needed for cough. FEMYNOR 0.25-35 mg-mcg per tablet TAKE 1 TABLET BY MOUTH EVERY DAY (Patient not taking: Reported on 08/19/2024) meloxicam (MOBIC) 15 mg tablet Take 1 tablet by mouth once daily. (Patient not taking: Reported on 08/19/2024) cyclobenzaprine (FLEXERIL) 10 mg tablet Take 1 tablet by mouth at bedtime as needed. (Patient not taking: Reported on 08/19/2024) FAMILY HISTORY Problem Relation Age of Onset Seizures Mother Heart Mother Thyroid Mother Asthma Father Seizures Maternal Grandmother Heart Maternal Grandmother [place] Seizures Brother Diabetes Brother maternal side. Thyroid Brother other (Depression/Anxiety) Brother maternal side. No Family History Other Colon Cancer/Polyps Social History Tobacco Use Smoking status: Never Smokeless tobacco: Never Substance Use Topics Alcohol use: No Drug use: No Review of Systems Constitutional: Positive for fatigue. Negative for chills, diaphoresis and fever. HENT: Positive for congestion, postnasal drip, rhinorrhea, sinus pressure, sinus pain and sore throat. Eyes: Negative for pain, discharge and itching. Respiratory: Positive for cough. Cardiovascular: Negative for chest pain. Gastrointestinal: Negative for abdominal pain, anorexia, change in bowel habit, nausea and vomiting. Musculoskeletal: Negative for arthralgias, joint swelling, myalgias and neck pain. Skin: Negative for rash. Allergic/Immunologic: Negative for environmental allergies, food allergies and immunocompromised state. Neurological: Positive for headaches. Negative for vertigo, weakness and numbness. Objective BP 128/74 Pulse 96 Temp 36.4 C (97.6 F) Resp 18 Wt 129.6 kg (285 lb 11.5 oz) LMP 07/11/2016 (Exact Date) SpO2 98% BMI 48.63 kg/m Physical Exam Vitals and nursing note reviewed. Constitutional: General: She is not in acute distress. Appearance: Normal appearance. She is normal weight. She is not ill-appearing, toxic-appearing or diaphoretic. HENT: Head: Normocephalic and atraumatic. Comments: +frontal sinus pressure +sinus pain pressure Right Ear: Ear canal and external ear normal. Left Ear: Ear canal and external ear normal. Nose: Congestion present. No rhinorrhea. Mouth/Throat: Mouth: Mucous membranes are moist. Pharynx: Posterior oropharyngeal erythema present. No oropharyngeal exudate. Eyes: General: Right eye: No discharge. Left eye: No discharge. Extraocular Movements: Extraocular movements intact. Conjunctiva/sclera: Conjunctivae normal. Pupils: Pupils are equal, round, and reactive to light. Cardiovascular: Rate and Rhythm: Normal rate and regular rhythm. Pulses: Normal pulses. Heart sounds: Normal heart sounds. No murmur heard. No friction rub. Pulmonary: Effort: Pulmonary effort is normal. No respiratory distress. Breath sounds: Normal breath sounds. No stridor. No wheezing, rhonchi or rales. Chest: Chest wall: No tenderness. Abdominal: General: Abdomen is flat. There is no distension. Palpations: Abdomen is soft. There is no mass. Tenderness: There is no abdominal tenderness. There is no right CVA tenderness, left CVA tenderness, guarding or rebound. Hernia: No hernia is present. Musculoskeletal: General: No swelling, tenderness, deformity or signs of injury. Normal range of motion. Cervical back: Normal range of motion and neck supple. No rigidity. Right lower leg: No edema. Left lower leg: No edema. Lymphadenopathy: Cervical: Cervical adenopathy present. Skin: General: Skin is warm and dry. Coloration: Skin is not jaundiced or pale. Findings: No bruising, erythema, lesion or rash. Neurological: General: No focal deficit present. Mental Status: She is alert and oriented to person, place, and time. Cranial Nerves: No cranial nerve deficit. Sensory: No sensory deficit. Motor: No weakness. Coordination: Coordination normal. Gait: Gait normal. Psychiatric: Mood and Affect: Mood normal. Behavior: Behavior normal. Thought Content: Thought content normal. Judgment: Judgment normal. {ASSESSMENT/PLAN: 1. Acute cough - ICD9: 786.2, ICD10: R05.1 (primary diagnosis) X six days Worsening - XR CHEST 2V FRONTAL/LAT-initial read negative Will call with radiologist results 2. Sinobronchitis - ICD9: 473.9, 490, ICD10: J32.9, J40 - Will begin treatment with as per antibiotic as written, see orders - The patient should also be given OTC cough and cold meds as needed, warm salt water gargles, throat lozenges and/or OTC throat spray as needed, and nasal saline gtts and suction prn for the first 5-7 days of treatment. - Supportive care with plenty of fluids, rest, and analgesia prn. - Follow up in 3-5 days if symptoms persist or worsen. Valerie Mathis APRN.CNP Differential Diagnoses - sinobronchitis is more likely for the following reason(s): suggested by H&P and consistent with imaging - pneumonia is less likely for the following reason(s): no evidence on imaging Disposition The patient was discharged. Procedures documented in this encounter [facility] 08-19-2024 Instructions Valerie Mathis APRN.CNP - 08/19/2024 10:40 AM EDT RESPIRATORY INFECTION GENERAL INFORMATION: An upper respiratory tract infection, or cold, is a viral infection of the airway passages. It can be caused by any one of almost 200 different viruses. Common symptoms include a runny or stuffy nose, sneezing, watery eyes, sore throat, cough, and slight fever. Colds are contagious, especially during the first 3 or 4 days and cannot be cured by antibiotics. They are spread by coughs, sneezes, and direct contact, especially [id number]. A respiratory tract infection usually clears up in a few days, but some people may be sick for a week or two. INSTRUCTIONS: 1. Be careful not to blow your nose too hard because this may cause a nosebleed. 2. Use a cool-mist humidifier (vaporizer) to increase air moisture. This will make it easier for you to breathe. Do not use hot steam. 3. Rest as much as possible and get plenty of sleep. 4. Wash your hands often, especially after you blow your nose. Cover your mouth and nose with a tissue when you sneeze or cough. 5. Drink plenty of clear fluids (8 glasses a day) such as water, fruit juice, tea, clear soups, and carbonated beverages. CONTACT YOUR DOCTOR IF : 1. Your fever lasts more than 3 days. 2. You have a sore throat that gets worse or you see white or yellow spots in your throat. 3. Your cough gets worse or lasts more than 10 days. 4. You develop a rash anywhere on your skin. 5. You have an earache or a headache. 6. You have thick greenish or yellowish discharge from your nose. RETURN IMMEDIATELY IF: 1. You cough up thick yellow, green, joseph, or bloody sputum. 2. You have difficulty breathing, pain in your chest, or your skin or nails look joseph or blue. 3. You have shaking chills or a temperature over 102 F (39 C). documented in this encounter [facility] 08-19-2024 History of Present illness Narrative Radiology Service Progress Note PATIENT NAME: Aliza Cline DATE OF SERVICE: August 19, 2024 TIME: 10:31 AM PATIENT IDENTITY VERIFICATION COMPLETED USING TWO (2) IDENTIFIERS: Name and Date of confirmed by patient verbally. FALL SCREENING: Has the patient had 2 falls in the last year or 1 fall with injury or currently using an Ambulatory Assistive Device (Walker, Cane, Wheelchair, Crutches, etc.)? No PATIENT GENDER DATA: Assigned female at . status: : No status: NO. PATIENT RELEVANT IMPLANT DATA REVIEWED: Yes PATIENT PRESENTS WITH AN IMPLANTABLE OR ATTACHED APPLICATION INTEGRATION ENGINEER: No RADIOLOGY DEPARTMENT: General X-ray: Exam(s) Completed: Chest X-Ray PERIPHERAL IV DATA: Not applicable SIGNED BY: RT Karuna(R) August 19, 2024 10:31 AM documented in this encounter [facility] 08-19-2024 Note HNO ID: [id number] Author: JOSE ORTEGA RT(R) Service: ? Author Type: [place] Representative Type: Progress Notes Filed: 08/19/2024 10:39 Note Text: Radiology Service Progress Note PATIENT NAME: Aliza Cline DATE OF SERVICE: August 19, 2024 TIME: 10:31 AM PATIENT IDENTITY VERIFICATION COMPLETED USING TWO (2) IDENTIFIERS: Name and Date of confirmed by patient verbally. FALL SCREENING: Has the patient had 2 falls in the last year or 1 fall with injury or currently using an Ambulatory Assistive Device (Walker, Cane, Wheelchair, Crutches, etc.)? No PATIENT GENDER DATA: Assigned female at . status: : No status: NO. PATIENT RELEVANT IMPLANT DATA REVIEWED: Yes PATIENT PRESENTS WITH AN IMPLANTABLE OR ATTACHED APPLICATION INTEGRATION ENGINEER: No RADIOLOGY DEPARTMENT: General X-ray: Exam(s) Completed: Chest X-Ray PERIPHERAL IV DATA: Not applicable SIGNED BY: RT Karuna(R) August 19, 2024 10:31 AM [facility] 08-19-2024 Note HNO ID: [id number] Author: VALERIE MATHIS APRN.RAILROAD MECHANIC Service: ? Author Type: Nurse Practitioner Type: Progress Notes Filed: 08/19/2024 11:24 Note Text: [facility] Subjective Aliza Cline is a 29 year old female. Patient presents with: Sinus Problem: sinus pressure and drainage x 4-5 days, chest congestion and cough x 1 day 29 year old female with PMH asthma presents for illness Acute onset 4 to 6 days ago Started as sinus pressure and nasal congestion Has progressively worsened +cough +productive +headache Denies N/V/D Denies fever or chills Denies abdominal pain She presents for worsening cough I feel like it is getting worse Concerned for pneumonia. Has used Nasal rinse Ibuprofen Denies tobacco usage The history is provided by the patient. No world language teacher was used. Sinus Problem This is a new problem. The current episode started in the past 7 days. The problem occurs constantly. The problem has been gradually worsening. Associated symptoms include congestion, coughing, fatigue, headaches and a sore throat. Pertinent negatives include no abdominal pain, anorexia, arthralgias, change in bowel habit, chest pain, chills, diaphoresis, fever, joint swelling, myalgias, nausea, neck pain, numbness, rash, swollen glands, urinary symptoms, vertigo, visual change, vomiting or weakness. Nothing aggravates the symptoms. Treatments tried: Nasal rinse, Ibuprofen. The treatment provided no relief. PAST MEDICAL HISTORY Diagnosis Date Anxiety Color blindness Obesity Oligomenorrhea 03/07/2010 Unspecified asthma(493.90) PAST SURGICAL HISTORY Procedure Laterality Date EGD W/O OR W/BRUSH/WASH 07/24/13 EGD EXTRACTION ERUPTED TOOTH/EXR 2014 [place] teeth REVISE MEDIAN N/CARPAL TUNNEL SURG Left 07/17/2014 Carpal tunnel decomp REVISE MEDIAN N/CARPAL TUNNEL SURG Right 06/02/2016 Carpal tunnel decomp TONSILLECTOMY HX 02/12/2018 ALLERGIES Dust Mites and Mold MEDICATIONS fluticasone-salmeterol HFA (ADVAIR) 230-21 mcg/actuation inhaler inhale 1 puff by mouth and INTO THE LUNGS twice a day WITH GOOD ORAL CARE AFTER USE albuterol (PROVENTIL) 2.5 mg/3 mL (0.083 %) nebulizer solution Use 2.5 mg via nebulizer. cholecalciferol (VITAMIN D3) 50 mcg (2,000 unit) tablet Take 1 tablet by mouth once daily. ORILISSA 200 mg tablet Take 1 tablet by mouth every 12 hours. topiramate (TOPAMAX) 50 mg tablet Take 50 mg by mouth daily at bedtime. sertraline (ZOLOFT) 50 mg tablet Take 1 tablet by mouth once daily. omeprazole (PRILOSEC) 40 mg capsule Take 1 capsule by mouth once daily. montelukast (SINGULAIR) 10 mg tablet Take 1 tablet by mouth once daily. buPROPion SR (ZYBAN SR; WELLBUTRIN SR) 150 mg 12 hr tablet Take 1 tablet by mouth twice daily. ondansetron orally disintegrating (ZOFRAN ODT) 4 mg disintegrating tablet Take 1 tablet by mouth every 6 hours as needed for Nausea/Vomiting. doxycycline (VIBRA-TABS) 100 mg tablet Take 1 tablet by mouth two times a day for 7 days. benzonatate (TESSALON PERLE) 100 mg capsule Take 1 capsule by mouth three times a day as needed for cough. FEMYNOR 0.25-35 mg-mcg per tablet TAKE 1 TABLET BY MOUTH EVERY DAY (Patient not taking: Reported on 08/19/2024) meloxicam (MOBIC) 15 mg tablet Take 1 tablet by mouth once daily. (Patient not taking: Reported on 08/19/2024) cyclobenzaprine (FLEXERIL) 10 mg tablet Take 1 tablet by mouth at bedtime as needed. (Patient not taking: Reported on 08/19/2024) FAMILY HISTORY Problem Relation Age of Onset Seizures Mother Heart Mother Thyroid Mother Asthma Father Seizures Maternal Grandmother Heart Maternal Grandmother [place] Seizures Brother Diabetes Brother maternal side. Thyroid Brother other (Depression/Anxiety) Brother maternal side. No Family History Other Colon Cancer/Polyps Social History Tobacco Use Smoking status: Never Smokeless tobacco: Never Substance Use Topics Alcohol use: No Drug use: No Review of Systems Constitutional: Positive for fatigue. Negative for chills, diaphoresis and fever. HENT: Positive for congestion, postnasal drip, rhinorrhea, sinus pressure, sinus pain and sore throat. Eyes: Negative for pain, discharge and itching. Respiratory: Positive for cough. Cardiovascular: Negative for chest pain. Gastrointestinal: Negative for abdominal pain, anorexia, change in bowel habit, nausea and vomiting. Musculoskeletal: Negative for arthralgias, joint swelling, myalgias and neck pain. Skin: Negative for rash. Allergic/Immunologic: Negative for environmental allergies, food allergies and immunocompromised state. Neurological: Positive for headaches. Negative for vertigo, weakness and numbness. Objective BP 128/74 Pulse 96 Temp 36.4 ?C (97.6 ?F) Resp 18 Wt 129.6 kg (285 lb 11.5 oz) LMP 07/11/2016 (Exact Date) SpO2 98% BMI 48.63 kg/m? Physical Exam Vitals and nursing note reviewed. Constitutio (more content not included)... [facility] 10-16-2022 Evaluation + Plan note Extrac david from: Title:Clinical Document Author:JOSE ANTONIO RENAE Date:10/16/22 [place] ADMISSION HISTORY AN D PHYSICIAL CHIEF COMPLAINT: HISTORY OF PRESENT ILLNESS: REVIEW OF SYSTEMS: ACTIVE PROBLEMS: No qualifying data available for Problems MEDICATIONS: Active Inpt Meds: None Active PRN Meds: None One Time Meds: None Active IV Meds: Lactated Ringers Infusion 1,000 mL (LR 1,000 mL) Start: 10/16/22 8:02:00 EDT, Rate: 50 mL/hr, 10/16/22 8:02:00 EDT ALLERGIES: No qualifying data available for Allergies FAMILY HISTORY: SOCIAL HISTORY: PHYSICAL EXAM: VITALS: GxmmwxPpelUCBvdjwPIJkM1UPY8QorbGt(kg) 10/16 08:32----[id number]--60/14741.5 10/16 08:28 RA 24 Hr Tmax: No Data Available 36 Hr Tmax: No Data Available Vital Signs are the last 5 in the past 48 hours. Weights display the last 5 within 7 days. Initial Wt: 10/16 114.5 kg 252 lb Current Wt: 10/16 114.5 kg 252 lb GENERAL: HEENT: CARDIOVASCULAR: RESPIRATORY: ABDOMEN: EXREMETIES: NEUROLOGICAL: PSYCHIATRIC: LABS: No 36hr Lab Data DIAGNOSTICS: IMPRESSION: PLAN: History and Physical Update I have examined the patient; reviewed the H&P and there are no changes to the H&P unless noted below. [facility] 06-26-2023 Hospital Discharge instructions Patient Education 10/16/2022 09:42:40 Monitored Anesthesia Care, Care After Monitored Anesthesia Care, Care After These instructions provide you with information about caring for yourself after your procedure. Your health care provider may also give you more specific instructions. Your treatment has been plannedaccording to current medical practices, but problems sometimes occur. Call your health care provider if you have any problems or questions after your procedure. What can I expect after the procedure? After your procedure, you may: Feel sleepy for several hours. Feel clumsy and have poor balance for several hours. Feel forgetful about what happened after the procedure. Have poor judgment for several hours. Feel nauseous or vomit. Have a sore throat if you had a breathing tube during the procedure. Follow these instructions at home: For at least 24 hours after the procedure: Have a responsible adult stay with you. It is important to have someone help care for you until youare awake and alert. Rest as needed. Do not: ?Participate in activities in which you could fall or become injured. ?Drive. ?Use heavy machinery. ?Drink alcohol. ?Take sleeping pills or medicines that cause drowsiness. ?Make important decisions or sign legal documents. ?Take care of children on your own. Eating and drinking Follow the diet that is recommended by your health care provider. If you vomit, drink water, juice, or soup when you can drink without vomiting. Make sure you have little or no nausea before eating solid foods. General instructions Take izud-ggt-puybsrf and prescription medicines only as told by your health care provider. If you have sleep apnea, surgery and certain medicines can increase your risk for breathing problems. Follow instructions from your health care provider about wearing your sleep device: ?Anytime you are sleeping, including during daytime naps. ?While taking prescription pain medicines, sleeping medicines, or medicines that make you drowsy. If you smoke, do not smoke without supervision. Keep all follow-up visits as told by your health care provider. This is important. Contact a health care provider if: You keep feeling nauseous or you keep vomiting. You feel light-headed. You develop a rash. You have a fever. Get help right away if: You have trouble breathing. Summary For several hours after your procedure, you may feel sleepy and have poor judgment. Have a responsible adult stay with you for at least 24 hours or until you are awake and alert. This information is not intended to replace advice given to you by your health care provider. Make sure you discuss any questions you have with your health care provider. Document Released: 07/30/2016 Document Revised: 07/08/2018 Document Reviewed: 07/30/2016 [employer] Patient Education 2020 [employer]. 10/16/2022 09:42:36 9 - AO Minor Esophagogastroduodenoscopy (07/04) (CUSTOM) Esophagogastroduodenoscopy This is an endoscopic procedure (a procedure that uses a device like a flexible telescope) that allows your caregiver to view the upper stomach and small bowel. This test allows your caregiver to look at the esophagus. The esophagus carries food from your mouth to your stomach. They can also look at your duodenum. This is the first part of the small intestine that attaches to the stomach. This shannen t is used to detect problems in the bowel such as ulcers and inflammation. MEANING OF TEST Your caregiver will go over the test results with you and discuss the importance and meaning of your results, as well as treatment options and the need for additional tests if necessary. OBTAINING THE TEST RESULTS Your caregiver s office will call you with the results of the test. POST SEDATION INSTRUCTIONS Rest at home today. Since your coordination may be impaired, be cautious on stairways, do not drive any vehicle or operate any heavy machinery, or use any sharp instruments for the remainder of the day. Do not drink any alcoholic beverages or make any major decisions for 24 hours. POST PROCEDURE INSTRUCTIONS Progress slowly with full liquids then resume previous diet and medications. Belching or passing of gas is to be expected. Notify the physician if you have severe chest pain, fever, or if difficulty when swallowing persists. 07/01/13 Custom Follow Up Care 10/10/2022 07:41:02 With:JOSE ANTONIO RENAE Address: [address] [facility] [address] [place] [address] [phone] Business (1) When: Unknown [facility] 06-26-2023 Summary of episode note Discharge Instructions Thank you for allowing [facility] to assist you with your healthcare needs. The following is importantdischarge information regarding your hospital visit. Your Care Team REBECCA DE LEON MD What to do next Follow Up Appointments Follow Up with JOSE ANTONIO RENAE When Where: [address] [facility] [address] [place] [address]- [phone] Business (1) Allergies No active allergies Medications Please ask your primary doctor or pharmacist before taking any other medication not listed, including over the counter drugs, herbal medications, vitamins and or supplements as they may interact withyour home medications. What How Much When Instructions Last Dose Unchanged buPROPion (BuPROPion (Eqv- Wellbutrin SR) 150 mg/ 12 hours oral tablet, extended release) take 1 tablet by mouth twice a day Unchanged cholecalciferol (Vitamin D3 50 mcg (2000 intl units) oral tablet) 1 tab(s) by mouth Every day Unchanged FLUoxetine (FLUoxetine 60 mg oral tablet) 1 tab(s) by mouth Once a day (in the morning) Unchanged montelukast (montelukast 10 mg oral tablet) 1 tab(s) by mouth Once a day Unchanged omeprazole (omeprazole 40 mg oral delayed release capsule) 1 cap by mouth Once a day Unchanged ondansetron (ondansetron 4 mg oral tablet, disintegrating) 1 tab(s) by mouth Every 8 hours as needed for as needed for nausea/vomiting Unchanged traZODone (traZODone 100 mg oral tablet) 1 tab(s) by mouth Two (2) times a day Please take this list to your next doctor s visit. Bring all medications you take, including over the counter medications, herbals and other supplements with you to your doctor s visit. Patients and families are reminded to discard old lists and to update any records with all medication providers or retail pharmacies. Education Materials Monitored Anesthesia Care, Care After These instructions provide you with information about caring for yourself after your procedure. Your health care provider may also give you more specific instructions. Your treatment has been plannedaccording to current medical practices, but problems sometimes occur. Call your health care provider if you have any problems or questions after your procedure. What can I expect after the procedure? After your procedure, you may: Feel sleepy for several hours. Feel clumsy and have poor balance for several hours. Feel forgetful about what happened after the procedure. Have poor judgment for several hours. Feel nauseous or vomit. Have a sore throat if you had a breathing tube during the procedure. Follow these instructions at home: For at least 24 hours after the procedure: Have a responsible adult stay with you. It is important to have someone help care for you until youare awake and alert. Rest as needed. Do not: ? Participate in activities in which you could fall or become injured. ? Drive. ? Use heavy machinery. ? Drink alcohol. ? Take sleeping pills or medicines that cause drowsiness. ? Make important decisions or sign legal documents. ? Take care of children on your own. Eating and drinking Follow the diet that is recommended by your health care provider. If you vomit, drink water, juice, or soup when you can drink without vomiting. Make sure you have little or no nausea before eating solid foods. General instructions Take nlcz-bvb-riycmjt and prescription medicines only as told by your health care provider. If you have sleep apnea, surgery and certain medicines can increase your risk for breathing problems. Follow instructions from your health care provider about wearing your sleep device: ? Anytime you are sleeping, including during daytime naps. ? While taking prescription pain medicines, sleeping medicines, or medicines that make you drowsy. If you smoke, do not smoke without supervision. Keep all follow-up visits as told by your health care provider. This is important. Contact a health care provider if: You keep feeling nauseous or you keep vomiting. You feel light-headed. You develop a rash. You have a fever. Get help right away if: You have trouble breathing. Summary For several hours after your procedure, you may feel sleepy and have poor judgment. Have a responsible adult stay with you for at least 24 hours or until you are awake and alert. This information is not intended to replace advice given to you by your health care provider. Make sure you discuss any questions you have with your health care provider. Document Released: 07/30/2016 Document Revised: 07/08/2018 Document Reviewed: 07/30/2016 [employer] Patient Education 2020 [employer]. Esophagogastroduodenoscopy This is an endoscopic procedure (a procedure that uses a device like a flexible telescope) that allows your caregiver to view the upper stomach and small bowel. This test allows your caregiver to look at the esophagus. The esophagus carries food from your mouth to your stomach. They can also look at your duodenum. This is the first part of the small intestine that attaches to the stomach. This shannen t is used to detect problems in the bowel such as ulcers and inflammation. MEANING OF TEST Your caregiver will go over the test results with you and discuss the importance and meaning of your results, as well as treatment options and the need for additional tests if necessary. OBTAINING THE TEST RESULTS Your caregiver s office will call you with the results of the test. POST SEDATION INSTRUCTIONS Rest at home today. Since your coordination may be impaired, be cautious on stairways, do not drive any vehicle or operate any heavy machinery, or use any sharp instruments for the remainder of the day. Do not drink any alcoholic beverages or make any major decisions for 24 hours. POST PROCEDURE INSTRUCTIONS Progress slowly with full liquids then resume previous diet and medications. Belching or passing of gas is to be expected. Notify the physician if you have severe chest pain, fever, or if difficulty when swallowing persists. 07/01/13 Custom Additional Information VACCINATE! IT SAVES LIVES! Members of the community who have not yet received the COVID-19 vaccine and would like to receive it can visit one of [facility] vaccine clinics. There are many vaccine clinic locations within the [facility]. For locations and available times, please visit [email or web address].[place].gov/. It is important to note that some COVID mobile vaccine clinics are held outdoors and may be canceled in rainy or stormy conditions. To learn more about pediatric vaccinations (ages 5-11), we invite you to visit the [facility] webpage. [email or web address].[email or web address].org/pages/3954-Gxyph-Rrtfqrxmdce-Qqkkdjdflc-Rsgsp-Wsi stions.htmlTo learn more about the COVID-19 vaccine, we invite you to visit the CDC website for a list of frequently asked questions.https://www.cdc.gov/coronavirus/2019-ncov/vaccines/faq.html [facility] Patient Portal Access Instructions: Stay connected with your healthcare team and access your personal medical information anytime with the [facility] Patient Portal. Please follow the directions below to create your [facility] account: 1.Access the email account you provided upon registration to the hospital/physician office.2.Look for an invitation email from [facility].3.Open the email and access the invitation link: AcceptInvitation to [facility].4.Fill in the required reeves to create your account. To access your account, visit [email or web address]. Click the blue button labeled "Access Patient Portal" and then log in with the username and password that you created in the steps above. You will be able to view your test results, lab results, a summary of your visits, upcoming appointments and more. There is also a convenient messaging option where you can send secure messages to your p [employer]. In addition, you will have the ability to download any documents or summaries to your computer and/or send the information securely to a physician. Remember that your healthcare information is confidential, so carefully consider who you will allowto register on the [facility] Patient Portal for access to your information. You can also access the [facility] Patient Portal on the [employer]. Simply click on "Patient Portal" and then log into your account. If you would like to receive a full copy of your medical records, please contact the [facility] Medical Records Department by calling [phone], Sunday through Sunday between 8 a.m. and 4:30 p.m. HOW TO SAFELY DISPOSE OF PRESCRIPTION MEDICATIONS Please use one of the following methods to safely dispose of your unused medications. 1.Use a drug disposal kit: the drug disposal pouch allows you to safely discard your old and unuseddrugs. Ask your nurse to give you one when you are discharged.2.Visit a local take-back location: Many local pharmacies and police departments have programs that collect old and unwanted prescriptiondrugs. Call your local pharmacy or go to http://Guerillapps.Quibb/3Z7Tm9g to find one close to you.3.Make use of household items: Use cat litter or old coffee grounds to dispose medications if other options arenot available. Mix your drugs with these household products, seal them in an airtight container andthrow it into the garbage. Call [facility]: [phone] to be sure your drugs can be disposed of in this way. Some medicines may require a different approach.4.Never flush your medications down the toilet. IF YOU HAVE BEEN PRESCRIBED AN OPIOID FOR PAIN If you have been prescribed an opioid (such as hydrocodone, oxycodone or morphine), it is critical to understand the possible side effects and risks of opioid pain medications. Even when taken as directed, opioids can have several side effects including: Tolerance, meaning you might need to take more of a medication for the same pain relief. Nausea, vomiting and/or constipation. Sleepiness, dizziness, dry mouth, confusion, depression or itching. Physical dependence, meaning you have withdrawal symptoms when a medication is stopped, can develop within a few days. KNOW YOUR RESPONSIBILITIES It is important to know exactly how much and how often to take the opioid pain medications you are prescribed. Never take opioids in higher amounts or more often than prescribed. Do not combine opioids with alcohol or other drugs that cause drowsiness, such as benzodiazepines, also known as benzos, including diazepam and alprazolam, muscle relaxants or sleep aids. Never sell or share prescription opioids. This is illegal. Store opioids in a secure place and out of reach of others (including children, family, friends and visitors). The last page of this document has been signed and retained as a CHART COPY. Signatures Patient Education Materials Monitored Anesthesia Care, Care After 9 - AO Minor Esophagogastroduodenoscopy (07/04) (CUSTOM) Medication Leaflets My discharge plan and instructions have been reviewed and explained to me and I,ALIZA CLINE Shabbirmaxxgilbertd my current condition and have read and understand these discharge instructions. I have received a written copy of the plan/instructions. If I have questions, I am aware that I should contact my doctor. 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 Mental status: at preoperative baseline. Respiratory function: lungs are clear to auscultation. Respiratory support: none. CV function: Normal rate. Cardiovascular support: none. Pain. Nausea status: denies nausea. Postoperative hydration status: within normal limits. Digitally Signed by LOU MONDRAGON on 10/16/2022 09:36 AM [facility]06-26-2023 Note [place] ADMISSION HISTORY AND PHYSICIAL CHIEF COMPLAINT: HISTORY OF PRESENT ILLNESS: REVIEW OF SYSTEMS: ACTIVE PROBLEMS: No qualifying data available for Problems MEDICATIONS: Active Inpt Meds: None Active PRN Meds: None One Time Meds: None Active IV Meds: Lactated Ringers Infusion 1,000 mL (LR 1,000 mL) Start: 10/16/22 8:02:00 EDT, Rate: 50 mL/hr, 10/16/22 8:02:00 EDT ALLERGIES: No qualifying data available for Allergies FAMILY HISTORY: SOCIAL HISTORY: PHYSICAL EXAM: VITALS: [id number](kg) 10/16 08:32----[id number]/[id number] 10/16 08:28 RA 24 Hr Tmax: No Data Available 36 Hr Tmax: No Data Available Vital Signs are the last 5 in the past 48 hours. Weights display the last 5 within 7 days. Initial Wt: 10/16 114.5 kg 252 lb Current Wt: 10/16 114.5 kg 252 lb GENERAL: HEENT: CARDIOVASCULAR: RESPIRATORY: ABDOMEN: EXREMETIES: NEUROLOGICAL: PSYCHIATRIC: LABS: No 36hr Lab Data DIAGNOSTICS: IMPRESSION: PLAN: History and Physical Update I have examined the patient; reviewed the H&P and there are no changes to the H&P unless noted below. Digitally Signed by JOSE ANTONIO RENAE MD on 10/16/2022 09:22 AM [facility]06-26-2023 Anesthesiology Consult note Patient: ALIZA CLINE Age: 27 years Sex: Female : 1995 Associated Diagnoses: None Author: LOU MONDRAGON Preoperative Information Time of last food or liquid consumption: 10/16/2022 00:00:00 Anesthesia history Patient's history: negative. Family's history: negative. Health Status Allergies: No active allergies have been recorded., No qualifying data available Current medications: (Selected) Inpatient Medications Ordered LR 1,000 mL: 50 mL/hr, Intravenous, Medications (1) Active Scheduled: (0) Continuous: (1) Lactated Ringers Infusion 1,000 mL 1,000 mL, Intravenous, 50 mL/hr PRN: (0) Problem list: No qualifying data available Histories Past Medical History: No active or resolved past medical history items have been selected or recorded. Family History: No family history items have been selected or recorded. Procedure history: No active procedure history items have been selected or recorded. Social History Social & Psychosocial Habits No Data Available . Physical Examination No qualifying data available General: Alert and oriented. Airway: Normal temporomandibular joint mobility. Mallampati classification: II (soft palate, fauces, uvula visible). Head: Normocephalic. Dentition Evaluation: Intact. Neck: Supple. Respiratory: Lungs are clear to auscultation. Cardiovascular: Normal rate. Heart Sounds: Normal. Gastrointestinal: Soft. Musculoskeletal Normal range of motion. Integumentary: Intact. Neurologic: Alert. Review / Management Results review: No qualifying data available . Assessment and Plan [place] [employer] Anesthesi[employer] (ASA) physical status classification: Class II. Anesthetic Preoperative Plan Premedication: None. Anesthetic technique: MAC. Induction: intravenously. Postoperative pain management: Per surgeon. Risks discussed: nausea, vomiting, headache, sore throat, dental injury, hypotension, allergic reaction, serious complications. Informed consent: signed by patient. Digitally Signed by LOU MONDRAGON on 10/16/2022 08:07 AM [facility]08-01-2022 NotePap Smear Specimen Adequacy November 21, 2021 2:00pmComment.Satisfactory for evaluation. No endocervical component is identified.[employer] INTER[employer] A#[id number] Work Phone: Comment on above:Satisfactory for evaluation. No endocervical component is identified.11-21-2021 NotePap Smear Specimen Adequacy November 21, 2021 2:00pmComment.Satisfactory for evaluation. No endocervical component is identified.[employer] A#[id number] Work Phone: Comamds on above:Satisfactory for evaluation. No endocervical component is identified.11-21-2021 NotePap Smear Specimen Adequacy November 21, 2021 2:00pmComment.Satisfactory for evaluation. No endocervical component is identified.[employer] A#[id number] Work Phone: Comgxzd on above:Satisfactory for evaluation. No endocervical component is identified.Evaluation note* Diagnosis Onset Date Resolution Status BMI greater than 40 acute Migraine with aura acute PCOS (polycystic ovarian syndrome) acute Encounter for routine gynecological examination noneactive [facility] Work Phone: Evaluation noteNo assessment information available [facility] Work Phone: Evaluation note* Diagnosis Acute cough- Primary Sinobronchitis Unspecified sinusitis (chronic) [facility] Narrative No data available for this section [facility] Chief Complaint and Reason for Visit 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) Reason for Visit BMI greater than 40 Migraine with aura PCOS (polycystic ovarian syndrome) Encounter for routine gynecological examination 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) ASTHMA Reason for Visit BMI greater than 40 Migraine with aura PCOS (polycystic ovarian syndrome) Encounter for routine gynecological examination Chief Complaint DYSPEPSIA Chief Complaint DYSPEPSIA ABDOMINAL PAIN Chief Complaint DYSPEPSIA ABDOMINAL PAIN ABDOMINAL PAIN Chief Complaint DYSPEPSIA ABDOMINAL PAIN ABDOMINAL PAIN E ORDER ABD PAIN,DIARRHEA Family History No Family History Records Found Relationship Condition Age at Onset Recorded Date/T manfred mother Diabetes mellitus Unknown Cardiac disease Unknown Asthma Unknown History of blood clots Unknown Advance Directives No Advanced Directives Records Found Advance Directive Response Recorded Date/ Time Living Will No December 28 018 4:09pm Power of Home Decorator No December 28, 2017 4:09pm Summary Purpose Additional Source Comments Goals (unrecognized section and content) Goals may be documented in a n alternate sectionGoals may be documented in an alternate sectionGoals may be documented in an alternate sectionGoals may be documented in an alternate sectionGoals may be documented in an alternate sectionGoals may be documented in an alternate sectionGoals may be documented in an alternate section No data available for this sectionGoals may be documented in an alternate section Care Teams (unrecognized sec tion and content) Team Status: Active Member Role Status Dates Dr. Enrique Ptaterson MD Family Provider Active Dr. Khris De Leon MD Primary Care Provider Activ e Team Status: Inactive Member Role Status Dates Dr. Khris De Leon MD Primary Care Provider, Attending Provider, Referring Provider Active Team Status: Active Member Role Status Dates Dr. Khris De Leon MD Primary Care Provider, Attending Provider, Referring Provider Active Team Status: Inactive Member Role Status Dates Dr. Khris De Leon MD Primary Care Provider Activ e Dr. Jose Antonio Renae MD Attending Provider, Referring Provider Active [employer] Relationship Specialty Start Date End Date Rebecca De Leon MD [address] [place] [address] PCP - General Family Medicine 08/19/24 [employer] Relationship Specialty Start Date End Date Rebecca De Leon MD [address] [place] [id number] PCP - General Family Medicine 08/19/24 INFORMATION SOURCE (unrecogn ized section and content) DATE CREATED AUTHOR 11/08/2022 [facility] DATE CREATED AUTHOR AUTHOR'S ORGANIZ ATION 08/28/2024 [facility] DATE CREATED AUTHOR AUTHOR'S ORGANIZ ATION 02/21/2025 [facility] Source Comments (unrecognize d section and content) In the event this informatio n is protected by the Federal Confidentiality of Alcohol and Drug Abuse Patient Records regulations: The Federal rules restrict any use of the information to criminally investigate or prosecute any alcohol or drug abuse patient.[facility] the event this information is protected by the Federal Confidentiality of Alcohol and Drug Abuse Patient Records regulations: The Federal rules restrict any use of the information to criminally investigate or prosecute any alcohol or drug abuse patient.[facility] Reason for Visit (unrecogniz ed section and content) Reason Comments Sinus Problem sinus pressure and d rainage x 4-5 days, chest congestion and cough x 1 day FOR RECORDS PERTAINING TO PATIENTS WHO ARE OR HAVE BEEN ENROLLED IN A CHEMICAL DEPENDENCY/SUBSTANCEABUSE PROGRAM, SOME INFORMATION MAY BE OMITTED. This clinical summary was aggregated from multiple sources. Caution should be exercised in using it in the provision of clinical care. This summary normalizes information from multiple sources, and as a consequence, information in this document may materially change the coding, format and clinical context of patient data. In addition, data may be omitted in some cases. CLINICAL DECISIONS SHOULD BE BASED ON THE PRIMARY CLINICAL RECORDS. [facility] provides no warranty or guarantee of the accuracy or completeness of information in this document.
[2025-03-06 22:12] VITALS: BP 130/80; PULSE 78; RESP 18; TEMP 36.8; O2SAT 100
== END 2025-03-06 22:13 | disposition home or self-care (01) ==
PROVIDERS: Emergency Provider Emergency Medicine; PCP Family Medicine; Visit Provider Emergency Medicine
DX: F07.81 Postconcussional syndrome (principal); M54.2 Cervicalgia; M62.838 Other muscle spasm
CPT/HCPCS: 72040; 72072; 72100; 99283

== ENCOUNTER → 2025-04-01 | Outpatient (CLI) | payer SELFPAY ==
--- OUTSIDE RECORDS SUMMARY | 2025-04-01 16:36 | XMS RPT_ITS | CCD ---
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 47-70 [facility] Potassium [Moles/Vol] 4.0 mmol/L 3.5-5.1 [facility] Protein [Mass/Vol] 7.1 g/dL 6.4-8.2 [facility] Sodium [Moles/Vol] 136 mmol/L 136-145 [facility] WBC (Bld) [#/Vol] 12.9 10*3/uL 4.4-11.0 [facility] Blood erythrocytes count (nu mber/volume)Ordered By: Dr. De Leon on 08-10-2022 RBC (Bld) [#/Vol] 4.62 10*6/uL 4.2-5.4 [facility] Blood hemoglobin measurement (mass/volume)Ordered By: Dr. De Leon on 08-10-2022 Hemoglobin (Bld) [Mass/Vol] 12.7 g/dL 12.0-15.0 [facility] Blood lymphocytes/100 leukoc ytesOrdered By: Dr. De Leon on 08-10-2022 Lymphocytes/100 WBC (Bld) 16.0 % 19-41 [facility] Blood monocytes/100 leukocyt esOrdered By: Dr. De Leon on 08-10-2022 Monocytes/100 WBC (Bld) 5.2 % 0-10 [facility] Blood platelet mean volumeOr dered By: Dr. De Leon on 08-10-2022 Platelet mean volume (Bld) [Entitic vol] 10.6 fL 6.2-12.0 [facility] Determination of erythrocyte mean corpuscular volume (MCV)Ordered By: Dr. De Leon on 08-10-2022 MCV (RBC) [Entitic vol] 85.7 fL 81-99 [facility] Hematocrit Auto (Bld) [Volum e fraction]Ordered By: Dr. De Leon on 08-10-2022 Hematocrit (Bld) [Volume fraction] 39.6 % 37-47 [facility] Laboratory - Chemistry and C hemistry - challengeOrdered By: Dr. De Leon on 08-10-2022 ALP [Catalytic activity/Vol] 70 U/L 45-117 [facility] ALT [Catalytic activity/Vol] 31 U/L 13-56 [facility] CO2 [Moles/Vol] 23.0 mmol/L 21.0-32.0 [facility] Cobalamin (Vitamin B12) [Mass/Vol] 1736 pg/mL 211-911 [facility] Globulin (S) [Mass/Vol] 3.4 g/dL 2.2-4.2 [facility] Urea nitrogen/Creatinine [Mass ratio] 9.9 mg/mg 10-20 [facility] - Hematology and Cell countsOrdered By: Dr. De Leon on 08-10-2022 Erythrocyte distribution width (RBC) [Entitic vol] 41.6 fL 35.1-43.9 [facility] Erythrocyte distribution width (RBC) [Ratio] 13.3 % 11.6-14.6 [facility] Immature granulocytes/100 WBC (Bld) 1.000 % 0.0-0.9 [facility] Comment on above: IG% - Immature Granu locytes (promyelocytes, myelocytes and metamyelocytes) > 1% indicates that a LEFT SHIFT is Present. MCH (RBC) [Entitic mass] 27.5 pg 27.0-32.0 [facility] Nucleated RBC/100 WBC (Bld) [Ratio] 0 % 0-5 [facility] MCHC Auto (RBC) [Mass/Vol]Or dered By: Dr. De Leon on 08-10-2022 MCHC (RBC) [Mass/Vol] 32.1 g/dL 32-36 [facility] No Panel InformationOrdered By: Dr. De Leon on 08-10-2022 Estimated GFR (MDRD) Amer 109 mL/min >60 [facility] Comment on above: GFR Calc Estimated GFR (MDRD) Non-Af Amer 90 mL/min >60 [facility] Comment on above: Non- GFR Calc Vitamin D 25-Hydroxy 93.5 ng/mL [facility] Comment on above: Vitamin D 25(OH) Sta tus Range Deficiency <20 ng/mL (50nmol/L) Insufficiency 20 - 30 ng/mL (50 - 75 nmol/L) Sufficiency 30 - 100 ng/mL (75 - 250 nmol/L) Toxicity >100 ng/mL (>250 nmol/L) Platelets bldOrdered By: Dr. De Leon on 08-10-2022 Platelets (Bld) [#/Vol] 404 10*3/uL 150-450 [facility] Serum Helicobacter pylori Ig G antibody assay (units/volume)Ordered By: Dr. De Leon on 08-10-2022 H. pylori IgG Qn (S) 0.14 0.00-0.79 [facility] Comment on above: Result Units: Index Value Negative <0.80 Equivocal 0.80 - 0.89 Positive >0.89Performed at: [facility] [address] [id number] Director: Jose Antonio La PhD, Phone: [phone] Serum or plasma albumin adria urement (mass/volume)Ordered By: Dr. De Leon on 08-10-2022 Albumin [Mass/Vol] 3.7 g/dL 3.2-5.0 [facility] Serum or plasma albumin/glob ulin mass ratioOrdered By: Dr. De Leon on 08-10-2022 Albumin/Globulin [Mass ratio] 1.1 {ratio} 0.9-2.4 [facility] Serum or plasma calcium adria urement (mass/volume)Ordered By: Dr. De Leon on 08-10-2022 Calcium [Mass/Vol] 9.0 mg/dL 8.5-10.1 [facility] Serum or plasma creatinine m easurement (mass/volume)Ordered By: Dr. De Leon on 08-10-2022 Creatinine [Mass/Vol] 0.81 mg/dL 0.55-1.02 [facility] Comment on above: The validity of the calculated GFR & GFRAA in patients over 70 years has not been determined. Clinical correlation is essential. Serum or plasma urea nitroge n measurement (mass/volume)Ordered By: Dr. De Leon on 08-10-2022 Urea nitrogen [Mass/Vol] 8 mg/dL 7-18 [facility] Thin prep Papanicolaou smear with manual screeningOrdered By: Dr. De Leon on 08-10-2022 Thin prep Papanicolaou smear with manual screening 22 U/L 15-37 [facility] Thin prep Papanicolaou smear with manual screening 5 5-15 [facility] Cervical or vagninal specime n microscopic examination by cytology stain (reported ason 11-21-2021 Cytology report Cyto stain Doc (Cvx/Vag) Comment . [facility] Work Phone: Comment on above: The Pap smear is a s creening test designed to aid in thedetection of premalignant and malignant conditions of theuterine cervix. It is not a diagnostic procedure andshould not be used as the sole means of detecting cervicalcancer. Both false-positive and false-negative reports dooccur. Laboratory - Cytologyon Lace Tearing Supervisor Cyto stain Nom (Cvx/Vag) [ID] Comment . [facility] Work Phone: Comment on above: Raysa Winkler, Cytot echnologist (ASCP) Laboratory - Miscellaneous t estson 11-21-2021 Service comment (Unsp spec) [Interp] Comment . [facility] Work Phone: Comment on above: This liquid based Th inPrep(R) pap test was screened withthe use of an image guided system. Service comment (Unsp spec) [Interp] . . [facility] Work Phone: No Panel Informationon 11-21 Human Papillomavirus Screen Comment . [facility] Work Phone: Comment on above: The HPV DNA reflex c amrit were not met with this specimenresult therefore, no HPV testing was performed.Performed at: [address] [id number] Director: Kate Weldon MD, Phone: [phone] Pathology report final diagnosis Narrative Comment . [facility] Work Phone: Comment on above: NEGATIVE FOR INTRAEP ITHELIAL LESION OR MALIGNANCY. Vital Signs Date Time Vital Sign Value Performing Clinician Facility 08-19-2024 10:18-0400 Body mass index (BMI) [Ratio] 48.63 kg/m2 Valerie Mathis BOWLING ALLEY MANAGER.COMPENSATION COORDINATOR Work Phone: [facility] 08-19-2024 10:18-0400 Body temperature 97.59 [degF] Valerie Mathis BOWLING ALLEY MANAGER.COMPENSATION COORDINATOR Work Phone: [facility] 08-19-2024 10:18-0400 Body weight 129.6 kg Valerie Mathis BOWLING ALLEY MANAGER.COMPENSATION COORDINATOR Work Phone: [facility] 08-19-2024 10:18-0400 Diastolic blood pressure 74 mm[Hg] Valerie Mathis BOWLING ALLEY MANAGER.COMPENSATION COORDINATOR Work Phone: [facility] 08-19-2024 10:18-0400 Heart rate 96 /min Valerie Mathis BOWLING ALLEY MANAGER.COMPENSATION COORDINATOR Work Phone: [facility] 08-19-2024 10:18-0400 Respiratory rate 18 /min Valerie Mathis BOWLING ALLEY MANAGER.COMPENSATION COORDINATOR Work Phone: [facility] 08-19-2024 10:18-0400 SaO2% (BldA) [Mass fraction] 98 % Valerie Mathis BOWLING ALLEY MANAGER.COMPENSATION COORDINATOR Work Phone: [facility] 08-19-2024 10:18-0400 Systolic blood pressure 128 mm[Hg] Valeriehuan Mathis BOWLING ALLEY MANAGER.COMPENSATION COORDINATOR Work Phone: [facility] 10-16-2022 10:06-0400 Diastolic Blood Pressure Non-Invasive [address] JOSE ANTONIO RENAE MD [facility] 10-16-2022 10:06-0400 Heart rate 74 /min DR JOSE ANTONIO RENAE MD [facility] 10-16-2022 10:06-0400 Respiratory rate 24 /min DR JOSE ANTONIO RENAE MD [facility] 10-16-2022 10:06-0400 Systolic Blood Pressure Non-Invasive [address] JOSE ANTONIO RENAE MD [facility] 10-16-2022 09:50-0400 Diastolic Blood Pressure Non-Invasive [address] JOSE ANTONIO RENAE MD [facility] 10-16-2022 09:50-0400 Heart rate 79 /min DR JOSE ANTONIO RENAE MD [facility] 10-16-2022 09:50-0400 Respiratory rate 20 /min DR JOSE ANTONIO RENAE MD [facility] 10-16-2022 09:50-0400 Systolic Blood Pressure Non-Invasive [address] JOSE ANTONIO RENAE MD [facility] 10-16-2022 09:45-0400 Diastolic Blood Pressure Non-Invasive [address] JOSE ANTONIO RENAE MD [facility] 10-16-2022 09:45-0400 Heart rate 83 /min DR JOSE ANTONIO RENAE MD [facility] 10-16-2022 09:45-0400 Respiratory rate 20 /min DR JOSE ANTONIO RENAE MD [facility] 10-16-2022 09:45-0400 Systolic Blood Pressure Non-Invasive [address] JOSE ANTONIO RENAE MD [facility] 10-16-2022 09:30-0400 Respiratory Rate - Anes 20 br/min DR JOSE ANTONIO RENAE MD [facility] 10-16-2022 09:25-0400 Respiratory Rate - Anes 19 br/min DR JOSE ANTONIO RENAE MD [facility] 10-16-2022 09:20-0400 Respiratory Rate - Anes 32 br/min DR JOSE ANTONIO RENAE MD [facility] 10-16-2022 08:32-0400 Heart rate 87 /min DR JOSE ANTONIO RENAE MD [facility] 10-16-2022 08:24-0400 Body height 162.[address] JOSE ANTONIO RENAE MD [facility] 10-16-2022 08:24-0400 Body weight 114.[address] JOSE ANTONIO RENAE MD [facility] 10-16-2022 08:24-0400 Body weight 43.41 kg/m2 DR JOSE ANTONIO RENAE MD [facility] 11-21-2021 11:04-0400 Body height 162.[address] Khris De Leon Work Phone: [facility] Work Phone: 11-21-2021 11:04-0400 Body mass index (BMI) [Ratio] 46.3 kg/m2 Dr. Khris De Leon Work Phone: [facility] Work Phone: 11-21-2021 11:04-0400 Body weight 122.[address] Khris De Leon Work Phone: [facility] Work Phone: 11-21-2021 11:04-0400 Diastolic blood pressure 70 mm[Hg] Dr. Khris De Leon Work Phone: [facility] Work Phone: 11-21-2021 11:04-0400 Systolic blood pressure 116 mm[Hg] Dr. Khris De Leon Work Phone: [facility] Work Phone: Encounters Encounter Date Encounter Type Care Provider Facility Start: 02-19-2025 ambulatory Rebecca De Leon Faci lity:[facility] Start: 01-07-2025 End: 01-07-2025 [facility] Start: 12-26-2024 End: 12-26-2024 Emergency department patient visit [facility] Facility:[facility] Start: 11-13-2024 End: 11-13-2024 ambulatory Rebecca De Leon Facility:[facility] Start: 08-19-2024 End: 08-19-2024 Subsequent hospital visit by physician [facility] Work Phone: Radiology Comment on above: Acute cough [R05.1] Start: 08-19-2024 End: 08-19-2024 Patient encounter procedure Valerie Mathis APRN.COMPENSATION COORDINATOR Work Phone: [facility] Comment on above: Acute cough (Primary Dx); Sinobronchitis Start: 08-19-2024 End: 08-19-2024 ambulatory VALERIE MATHIS Facility:[facility] Start: 11-07-2022 End: 11-08-[address] JOSE ANTONIO RENAE MD Facility:[facility] Start: 10-17-2022 End: 10-17-2022 ambulatory [facility] Work Phone: Start: 10-17-2022 End: 10-17-2022 [facility] Start: 10-16-2022 End: 10-16-[address] JOSE ANTONIO RENAE MD Facility:[facility] Start: 10-16-2022 End: 10-16-[address] [facility] AN[facility] Start: 10-09-2022 End: 10-09-2022 ambulatory [facility] Work Phone: Start: 10-09-2022 End: 10-09-2022 [facility] Start: 09-27-2022 End: 09-27-2022 Patient encounter procedure [facility]-Laboratory, Specimen Start: 09-13-2022 End: 09-13-2022 ambulatory [facility] Work Phone: Start: 09-13-2022 End: 09-13-2022 Patient encounter procedure [facility]-Nuclear Medicine, [facility] Start: 08-16-2022 End: 08-16-2022 ambulatory [facility] Work Phone: Start: 08-16-2022 End: 08-16-2022 Patient encounter procedure [facility]-Ultrasound, [facility] Start: 08-10-2022 End: 08-10-2022 Patient encounter procedure [facility]-Laboratory, [place] Start: 08-09-2022 End: 08-09-2022 ambulatory [facility] Work Phone: Start: 08-09-2022 End: 08-09-2022 Patient encounter procedure [facility]-Radiology, [facility] Start: 12-06-2021 End: 12-06-[address] Khris De Leon Work Phone: [facility]-Radiology, [place] Start: 11-21-2021 End: 11-21-[address] Khris De Leon Work Phone: [facility]-Laboratory, Specimen Start: 11-21-2021 End: 11-21-[address] Khris De Leon Work Phone: [facility] [place] [facility] Procedures Date Procedure Procedure Detail Performing Clinician Start: 08-19-2024 Radiologic exam ches t 2 views Valerie Mathis BOWLING ALLEY MANAGER.COMPENSATION COORDINATOR Work Phone: Start: 09-27-2022 Clostridium difficil e [...] P,Tdap,Td Vaccine (8 - Td or Tdap) [facility] Start: 12-23-2023 Covid-19 Vaccine () Covid-19 Vaccine () [facility] Start: 12-23-2023 Influenza vaccination Influenza Vacc ine (#1) [facility] Start: 05-02-2021 Screening for malign ant neoplasm of cervix Cervical Cancer Screening [facility] Start: 2013 Anxiety Screening Anxiety Screening [facility] Start: 2013 Depression Screening Depression Scre josh [facility] Start: 2013 Hepatitis C screening Hepatitis C Sc paulette [facility] Start: 2013 HIV screening HIV Screening [facility] Immunizations Immunization Date Immunization Notes Care Provider Chris loerasuleman 10-07-2013 hepatitis A vaccine, adult dosage Valerie Mathis BOWLING ALLEY MANAGER.[facility] Work Phone: [facility] 01-15-2012 Meningococcal, MCV4, unspecified conjugate formulation(groups A, C, Y and W-135) Valerie Mathis BOWLING ALLEY MANAGER.COMPENSATION COORDINATOR Work Phone: [facility] 01-17-2011 human papilloma viru s vaccine, quadrivalent Valerie Mathis BOWLING ALLEY MANAGER.[facility] Work Phone: [facility] Work Phone: 11-29-2009 human papilloma viru s vaccine, quadrivalent Valerie Mathis BOWLING ALLEY MANAGER.COMPENSATION COORDINATOR Work Phone: [facility] 03-25-2007 human papilloma viru s vaccine, quadrivalent Valerie Mathis BOWLING ALLEY MANAGER.COMPENSATION COORDINATOR Work Phone: [facility] 03-25-2007 influenza virus vaccine, unspecified formulation Valerie Mathis BOWLING ALLEY MANAGER.COMPENSATION COORDINATOR Work Phone: [facility] 03-25-2007 Meningococcal, MCV4, unspecified conjugate formulation(groups A, C, Y and W-135) Valerie Mathis BOWLING ALLEY MANAGER.COMPENSATION COORDINATOR Work Phone: [facility] 03-25-2007 tetanus toxoid, redu kevin diphtheria toxoid, and acellular pertussis vaccine, adsorbed Valerie Mathis BOWLING ALLEY MANAGER.COMPENSATION COORDINATOR Work Phone: [facility] 09-01-1999 diphtheria, tetanus toxoids and acellular pertussis vaccine Valerie Mathis BOWLING ALLEY MANAGER.COMPENSATION COORDINATOR Work Phone: [facility] 09-01-1999 measles, mumps and rubella virus vaccine Valerie Mathis BOWLING ALLEY MANAGER.COMPENSATION COORDINATOR Work Phone: [facility] 09-01-1999 poliovirus vaccine, inactivated Valerie Mathis BOWLING ALLEY MANAGER.COMPENSATION COORDINATOR Work Phone: [facility] 04-23-1998 chicken pox (disease) Eleic a Mathis BOWLING ALLEY MANAGER.COMPENSATION COORDINATOR Work Phone: [facility] 03-25-1996 diphtheria, tetanus toxoids and acellular pertussis vaccine Valerie Mathis BOWLING ALLEY MANAGER.COMPENSATION COORDINATOR Work Phone: [facility] 03-25-1996 haemophilus influenz ae type b vaccine, HbOC conjugate Valerie Mathis BOWLING ALLEY MANAGER.COMPENSATION COORDINATOR Work Phone: [facility] 03-25-1996 measles, mumps and rubella virus vaccine Valerie Mathis BOWLING ALLEY MANAGER.COMPENSATION COORDINATOR Work Phone: [facility] 1995 hepatitis B vaccine, pediatric or pediatric/adolescent dosage Valerie Mathis BOWLING ALLEY MANAGER.COMPENSATION COORDINATOR Work Phone: [facility] 1995 diphtheria, tetanus toxoids and acellular pertussis vaccine Valerie Mathis BOWLING ALLEY MANAGER.COMPENSATION COORDINATOR Work Phone: [facility] 1995 haemophilus influenz ae type b vaccine, HbOC conjugate Valerie Mathis BOWLING ALLEY MANAGER.COMPENSATION COORDINATOR Work Phone: [facility] 1995 poliovirus vaccine, inactivated Valerie Mathis BOWLING ALLEY MANAGER.COMPENSATION COORDINATOR Work Phone: [facility] 1995 diphtheria, tetanus toxoids and acellular pertussis vaccine Valerie Mathis BOWLING ALLEY MANAGER.COMPENSATION COORDINATOR Work Phone: [facility] 1995 haemophilus influenz ae type b vaccine, HbOC conjugate Valerie Mathis BOWLING ALLEY MANAGER.COMPENSATION COORDINATOR Work Phone: [facility] 1995 poliovirus vaccine, inactivated Valerie Mathis BOWLING ALLEY MANAGER.COMPENSATION COORDINATOR Work Phone: [facility] 1995 diphtheria, tetanus toxoids and acellular pertussis vaccine Valerie Mathis BOWLING ALLEY MANAGER.COMPENSATION COORDINATOR Work Phone: [facility] Work Phone: 1995 haemophilus influenz ae type b vaccine, HbOC conjugate Valerie Mathis BOWLING ALLEY MANAGER.COMPENSATION COORDINATOR Work Phone: [facility] 1995 poliovirus vaccine, inactivated Valerie Mathis BOWLING ALLEY MANAGER.COMPENSATION COORDINATOR Work Phone: [facility] 1995 hepatitis B vaccine, pediatric or pediatric/adolescent dosage Valerie Mathis BOWLING ALLEY MANAGER.COMPENSATION COORDINATOR Work Phone: [facility] 1995 hepatitis B vaccine, pediatric or pediatric/adolescent dosage Valerie Mathis BOWLING ALLEY MANAGER.COMPENSATION COORDINATOR Work Phone: [facility] Payers Date Payer Category Payer Unknown [id number] 2024 Unknown [id number] 2024 Self-pay [id number] 2024 Private Health Insurance [facility] [id number] 2022 Unknown [id number] 1995 Unknown [id number] 1995 Unknown [id number] Unknown [id number] Unknown [id number] Unknown [id number] Unknown [id number] Unknown [id number] Unknown [id number] Social History Date Type Detail Facility Start: [facility]21[facility]21 [facility] Start: 1995 Sex Assigned At Female W [facility] Start: 03-04-2013 End: 10-16-2022 Tobacco smoking status Never smoked tobacco (finding) [facility] Start: 03-04-2013 Tobacco use and exposure Smokeless tobacco non-user [facility] Start: 10-07-2018 Alcoholic beverage intake Current non-drinker of alcohol (finding) [facility] Start: 10-07-2018 End: 03-28-2020 History of Social function [facility] Start: 10-07-2018 End: 03-28-2020 Tobacco use panel [facility] Adult Depression Screening Assessment 0 [facility] Start: 1995 Sex assigned at Not on file [facility] Functional Status Date Assessment Result Facility 10-16-2022 Functional Status Awake, Resting [facility] 10-16-2022 Functional Status Maintained [facility] 08-27-2014 Are you deaf, or do you have serious difficulty hearing No 08/27/2014 8:06 AM Madai Gomez RN No [facility] 08-27-2014 Are you blind, or do you have serious difficulty seeing, even when wearing glasses No 08/27/2014 8:06 AM Madai Gomez RN No [facility] 08-27-2014 Do you have serious difficulty walking or climbing stairs No 08/27/2014 8:06 AM Madai Gomez RN No [facility] 08-27-2014 Because of a physica l, mental, or emotional condition, do you have difficulty doing errands alone such as visiting a physician's office or shopping No 08/27/2014 8:06 AM EDT Madai Dahl RN No [facility] 07-27-2014 Do you have difficul ty dressing or bathing No 07/27/2014 9:04 AM EDT Pauline Spaulding MA No [facility] Mental Status Date Assessment Result Facility 10-16-2022 Mental Status Oriented x [address] [facility] 10-16-[address] [facility] 08-27-2014 Because of a physica l, mental, or emotional condition, do you have serious difficulty concentrating, remembering, or making decisions No 08/27/2014 8:06 AM EDT Madai Dahl RN No [facility] Clinical Notes 11-21-2021 to 08-19-2024 Valerie Mathis APRN.CNP - 08/19/2024 11:00 AM EDValerie Edwards APRN.CNP - 08/19/2024 10:21 AM EDTPatient Jose Salas RT(R) - 08/19/2024 10:30 AM EDT Note Date & Type Note Facility 08-19-2024 Note HNO ID: [id number] Author: VALERIE MATHIS APRN.SINGH Service: ? Author Type: Nurse Practitioner Type: Progress Notes Filed: 08/19/2024 11:24 Note Text: CXR reveals no pneumonia or masses Patient notified. [facility] 08-19-2024 History of Present illness Narrative CXR reveals no pneumonia or masses Patient notified. [facility] Subjective Aliza Cline is a 29 [...] history is provided by the patient. No efficiency analyst was used. Sinus Problem This is a [...] W/BRUSH/WASH 07/24/13 EGD EXTRACTION ERUPTED TOOTH/EXR 2014 [place] teeth REVISE MEDIAN N/CARPAL TUNNEL SURG Left [...] Father Seizures Maternal Grandmother Heart Maternal Grandmother [place] Seizures Brother Diabetes Brother maternal side. Thyroid [...] was discharged. Procedures documented in this encounter [facility] 08-19-2024 Instructions Valerie Mathis APRN.CNP - 08/19/2024 [...] by coughs, sneezes, and direct contact, especially gdfx-ge-nkvk. A respiratory tract infection usually clears up [...] F (39 C). documented in this encounter [facility] 08-19-2024 History of Present illness Narrative Radiology [...] PATIENT PRESENTS WITH AN IMPLANTABLE OR ATTACHED TOY CONSULTANT: No RADIOLOGY DEPARTMENT: General X-ray: Exam(s) Completed: Chest X-Ray PERIPHERAL IV DATA: Not applicable SIGNED BY: RT Karuna(R) August 19, 2024 10:31 AM documented in this encounter [facility] 08-19-2024 Note HNO ID: [id number] Author: JOSE ORTEGA RT(R) Service: ? Author Type: Outside Plant Engineer Type: Progress Notes Filed: 08/19/2024 10:39 Note [...] PATIENT PRESENTS WITH AN IMPLANTABLE OR ATTACHED TOY CONSULTANT: No RADIOLOGY DEPARTMENT: General X-ray: Exam(s) Completed: Chest X-Ray PERIPHERAL IV DATA: Not applicable SIGNED BY: RT Karuna(R) August 19, 2024 10:31 AM [facility] 08-19-2024 Note HNO ID: [id number] Author: VALERIE MATHIS APRN.COMPENSATION COORDINATOR Service: ? Author Type: Nurse Practitioner Type: [...] history is provided by the patient. No efficiency analyst was used. Sinus Problem This is a [...] W/BRUSH/WASH 07/24/13 EGD EXTRACTION ERUPTED TOOTH/EXR 2014 [place] teeth REVISE MEDIAN N/CARPAL TUNNEL SURG Left [...] Father Seizures Maternal Grandmother Heart Maternal Grandmother [place] Seizures Brother Diabetes Brother maternal side. Thyroid [...] note reviewed. Constitutio (more content not included)... [facility] 10-16-2022 Evaluation + Plan note Extrac david from: Title:Clinical Document Author:JOSE ANTONIO RENAE Date:10/16/22 [facility] ADMISSION HISTORY AN D PHYSICIAL CHIEF COMPLAINT: [...] FAMILY HISTORY: SOCIAL HISTORY: PHYSICAL EXAM: VITALS: UkmfuxFfmfNZFtqztZNZwW5QMM4XogbSg(kg) 10/16 08:32----[id number]--51/53059.5 10/16 08:28 RA 24 Hr Tmax: No [...] changes to the H&P unless noted below. [facility] 06-26-2023 Hospital Discharge instructions Patient Education [...] before eating solid foods. General instructions Take afdq-shr-qqjfgci and prescription medicines only as told by [...] 07/30/2016 Document Revised: 07/08/2018 Document Reviewed: 07/30/2016 [employer] Patient Education 2020 [employer]. 10/16/2022 09:42:36 9 - AO Minor Esophagogastroduodenoscopy [...] Care 10/10/2022 07:41:02 With:JOSE ANTONIO RENAE Address: [address] [place] [address] [address] [place] [address]- [phone] Business (1) When: Unknown [facility] 06-26-2023 Summary of episode note Discharge Instructions Thank you for allowing [facility] to assist you with your healthcare needs. The following is importantdischarge information regarding your hospital visit. Your Care Team REBECCA DE LEON MD What to do next Follow Up Appointments Follow Up with JOSE ANTONIO RENAE When Where: [address] [address] [phone] Business (1) Allergies No active allergies Medications [...] before eating solid foods. General instructions Take vvxw-oik-qeimddt and prescription medicines only as told by [...] 07/30/2016 Document Revised: 07/08/2018 Document Reviewed: 07/30/2016 [employer] Patient Education 2020 [employer]. Esophagogastroduodenoscopy This is an endoscopic procedure (a [...] to receive it can visit one of [facility] vaccine clinics. There are many vaccine clinic locations within the [facility]. For locations and available times, please visit [email or web address] It is important to note that some COVID mobile vaccine clinics are held outdoors and may be canceled in rainy or stormy conditions. To learn more about pediatric vaccinations (ages 5-11), we invite you to visit the [facility] webpage. [email or web address]/[email or web address] [email or web address] learn more about the COVID-19 vaccine, we invite you to visit the CDC website for a list of frequently asked questions.https://www.cdc.gov/coronavirus/2019-ncov/vaccines/faq.html [employer] Patient Portal Access Instructions: Stay connected with your healthcare team and access your personal medical information anytime with the [employer] Patient Portal. Please follow the directions below to create your [employer] account: 1.Access the email account you provided upon registration to the hospital/physician office.2.Look for an invitation email from [facility].3.Open the email and access the invitation link: AcceptInvitation to [employer].4.Fill in the required reeves to create your account. To access your account, visit [email or web address]. Click the blue button labeled Access Patient Portal and then log in with the username and password that you created in the steps above. You will be able to view your test results, lab results, a summary of your visits, upcoming appointments and more. There is also a convenient messaging option where you can send secure messages to your p [employer]. In addition, you will have the ability to download any documents or summaries to your computer and/or send the information securely to a physician. Remember that your healthcare information is confidential, so carefully consider who you will allowto register on the [employer] Patient Portal for access to your information. You can also access the [employer] Patient Portal on the [employer] bibiana. Simply click on Patient Portal and then log into your account. If you would like to receive a full copy of your medical records, please contact the [facility] Medical Records Department by calling [phone], Sunday through Sunday between 8 a.m. and [...] Call your local pharmacy or go to [email or web address] to find one close to you.3.Make use of household items: Use cat litter or old coffee grounds to dispose medications if other options arenot available. Mix your drugs with these household products, seal them in an airtight container andthrow it into the garbage. Call [facility]: [phone] to be sure your drugs can be [...] been reviewed and explained to me and MICHAELLE Tan MICHELLE Junderstand my current condition and have read and understand these discharge instructions. I have received a written copy of the plan/instructions. If I have questions, I am aware that I should contact my doctor. 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..] qualifying data available . Assessment and Plan [place] [employer] Anesthesiologists (ASA) physical status classification: Class II. Anesthetic Preoperative Plan Premedication: None. Anesthetic technique: MAC. Induction: intravenously. Postoperative pain management: Per surgeon. Risks discussed: nausea, vomiting, headache, sore throat, dental injury, hypotension, allergic reaction, serious complications. Informed consent: signed by patient. Digitally Signed by LOU MONDRAGON on 10/16/2022 08:07 AM [facility]08-01-2022 NotePap Smear Specimen Adequacy November 21, 2021 2:00pmComment.Satisfactory for evaluation. No endocervical component is identified.[employer] INTERFACED A#[id number] Hospital Work Phone: Comment on above:Satisfactory for evaluation. No endocervical component is identified.11-21-2021 NotePap Smear Specimen Adequacy November 21, 2021 2:00pmComment.Satisfactory for evaluation. No endocervical component is identified.[employer] INTER[employer] A#[id number] Hospital Work Phone: Comvgrc on above:Satisfactory for evaluation. No endocervical component is identified.11-21-2021 NotePap Smear Specimen Adequacy November 21, 2021 2:00pmComment.Satisfactory for evaluation. No endocervical component is identified.[facility] INTER[employer]ED A#[id number] Hospital Work Phone: Comrzjs on above:Satisfactory for evaluation. No endocervical component is identified.Evaluation note* Diagnosis Onset Date Resolution Status BMI greater than 40 acute Migraine with aura acute PCOS (polycystic ovarian syndrome) acute Encounter for routine gynecological examination noneactive [facility] Work Phone: Evaluation noteNo assessment information available [facility] Work Phone: Evaluation note* Diagnosis Acute cough- Primary Sinobronchitis Unspecified sinusitis (chronic) Acute cough [facility] Acute cough documented in this encounter [facility] course Narrative No data available for this section [facility] Ambrocio Chief Complaint and Reason for Visit 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 Enrique Patterson MD Family Provider Active Dr. 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 Specialty Start Date End Date Rebecca De Leon MD [address] [place] [address] PCP - General Family Medicine 08/19/24 INFORMATION SOURCE (unrecogn ized section and content) DATE CREATED AUTHOR 11/08/2022 [facility] ([place]) DATE CREATED AUTHOR AUTHOR'S ORGANIZ ATION 08/28/2024 [facility] DATE CREATED AUTHOR AUTHOR'S ORGANIZ ATION 02/21/2025 [facility] Source Comments (unrecognize d section and content) In the event this informatio n is protected by the Federal Confidentiality of Alcohol and Drug Abuse Patient Records regulations: The Federal rules restrict any use of the information to criminally investigate or prosecute any alcohol or drug abuse patient.[facility] the event this information is protected by the Federal Confidentiality of Alcohol and Drug Abuse Patient Records regulations: The Federal rules restrict any use of the information to criminally investigate or prosecute any alcohol or drug abuse patient.[facility] Reason for Visit (unrecogniz ed section and [...] BE BASED ON THE PRIMARY CLINICAL RECORDS. [facility], [facility]. provides no warranty or guarantee of the accuracy or completeness of information in this document.
[2025-04-01 18:10] LABS: Hematocrit 38.3 % (37-47); Hemoglobin 11.5 g/dL (12.0-15.0); Immature Granulocytes Count 0.130 X10^3/uL (0.0-0.0); Mean Corp Hgb Conc 30.0 g/dL (32-36); Mean Corpuscular Volume 77.1 fL (81-99); Mean Platelet Vol. 9.8 fl (6.2-12.0); NRBC Flagged by Analyzer 0 % (0-5); Platelet Count 473 K/mm3 (150-450); RBC Distribution Width CV 15.9 % (11.6-14.6); RBC Distribution Width SD 44.0 fl (35.1-43.9); Red Blood Count 4.97 M/mm3 (4.2-5.4); White Blood Count 13.4 K/mm3 (4.4-11.0)
[2025-04-01 18:24] LABS: Ammonia 29.3 umol/L (11-51)
[2025-04-01 18:28] LABS: Ferritin 29 ng/mL (22-378); Vitamin B12 863 pg/mL (180-914)
[2025-04-01 20:02] LABS: AST(SGOT) 63 U/L (<=31); Alanine Aminotransfer ALT/SGPT 69 U/L (<=34); Albumin, Serum 4.4 g/dL (3.5-5.0); Alkaline Phosphatase 78 U/L (35-104); Anion Gap 13 (5-15); BUN 16 mg/dL (4-19); BUN/Creat Ratio 19.6 RATIO (10-20); CRP 18.70 mg/L (0.0-3.0); Calcium,Total 9.5 mg/dL (7.6-11.0); Carbon Dioxide 23.9 mmol/L (21.0-32.0); Chloride 105 mmol/L (98-108); Globulin 2.8 g/dL (2.2-4.2); Glucose 83 mg/dL (70-99); Magnesium 2.4 mg/dL (1.5-2.2); Potassium 4.0 mmol/L (3.3-5.1)
[2025-04-01 20:27] LABS: Iron 24 ug/dL (50-170)
[2025-04-03 14:09] LABS: ANTINUCLEAR ANTIBODIES DIRECT Negative (Negative)
[2025-04-05 18:07] LABS: Folate, Hemolysate Test 325.0 ng/mL (Not Estab.); Folate, RBC (Hct) Test 39.2 % (34.0-46.6); Folates, RBC Test 829 ng/mL (>498)
== END | disposition home or self-care (01) ==
LOC: MTLAB 16:18
PROVIDERS: PCP Family Medicine
DX: F07.81 Postconcussional syndrome (principal); G43.109 Migraine with aura, not intractable, without status migrainosus; M54.2 Cervicalgia
CPT/HCPCS: 36415; 80053; 80201; 82140; 82607; 82728; 82747; 83540; 83735; 84443; 85014; 85025; 85652; 86038; 86140; 86225; 86235

== ENCOUNTER 2025-04-09 15:17 | Outpatient (CLI) | payer SELFPAY ==
--- NOTE | 2025-04-09 15:26 | MRI_ITS ---
PROCEDURE: SPINE CERVICAL (ROUTINE) 04/09/2025 REASON FOR EXAM: Cervical radiculopathy TECHNIQUE: Procedure Code: MRISPC Modality: MR Procedure: SPINE CERVICAL (ROUTINE) Multiplanar and multisequence images were obtained without IV contrast administration. COMPARISON: None available. FINDINGS: Motion artifact mildly limits evaluation. Straightening of the cervical spine. The atlantooccipital and atlantoaxial joints appear normally aligned. The cervical vertebral bodies are normal in height. The cervical vertebral bodies are normal in alignment. The cervical bone marrow signal is within normal limits. There is no evidence of cervical spinal cord signal abnormality. C2-C3: No significant spinal canal stenosis or neural foraminal narrowing. C3-C4: Right paracentral disc extrusion with mild superior migration contributes to mild spinal canal stenosis. Facet arthropathy and uncovertebral spurring contribute to mild bilateral neural foraminal narrowing. C4-C5: No significant spinal canal stenosis or neural foraminal narrowing. C5-C6: Disc bulge contributes to mild spinal canal stenosis. No significant neural foraminal narrowing. C6-C7: No significant spinal canal stenosis or neural foraminal narrowing. C7-T1: No significant spinal canal stenosis or neural foraminal narrowing. MRI/Spine Cervical (Routine) IMPRESSION: Motion artifact mildly limits evaluation. Cervical spondylosis most prominent at C3-C4 without high-grade spinal canal or neural foraminal stenosis. Reading Location: [id number]
--- NOTE | 2025-04-09 15:26 | MRI_ITS ---
PROCEDURE: BRAIN WITHOUT CONTRAST 04/09/2025 REASON FOR EXAM: CHANGE IN HEADACHE PATTERN TECHNIQUE: Procedure Code: MRIBR Modality: MR Procedure: BRAIN WITHOUT CONTRAST Multiplanar and multisequence images were obtained. COMPARISON: none FINDINGS: No intracerebral or extra-axial acute hemorrhage. No hyperacute or acute infarctions could be depicted. Normal MRI appearance of the cerebral and cerebellar parenchymal signals. Normal MRI appearance of different anatomical parts of the brain stem. Normal appearance of the ventricular system. No shift of midline structures. Normal MRI appearance of the petrous temporal bones and cerebellopontine angles with no obvious masses. Normal MRI appearance of orbital structures, both globes, optic nerves, optic chiasm, optic tracts and optic radiations. Scanned paranasal sinuses show no obvious abnormalities MRI/Brain without Contrast IMPRESSION: Unremarkable study of the brain with no intracerebral or extra-axial hematomas or obvious ischemic changes. Reading Location: [facility]
== END 2025-04-09 23:59 | disposition home or self-care (01) ==
LOC: OPMRI 15:18
PROVIDERS: PCP Family Medicine
DX: G43.109 Migraine with aura, not intractable, without status migrainosus (principal); F07.81 Postconcussional syndrome; M54.2 Cervicalgia
CPT/HCPCS: 70551; 72141